=== PATIENT | male | born 1955 | race Caucasian/White ===

== ENCOUNTER 2016-08-09 12:20 | Observation (INO) | payer OTHER ==
[~2016-08-09] VITALS: Ht 177.8 cm; Wt 79.1 kg
[2016-08-09] MEDS ORDERED: CARB400T4 PO ×2 (12:33→15:36)
[2016-08-09] MEDS ORDERED: LISI-538 PO (12:33)
[2016-08-09] MEDS ORDERED: VITA100037 PO (12:33)
[2016-08-09] MEDS ORDERED: NS 1,000 ML IV ONE (13:30)
[2016-08-09 14:14] LABS: BASO % 0.4 % (0.0-1.0); EOS # 0.1 K/mm3 (0.0-0.50); EOS % 1.8 % (0.0-3.0); LARGE UNSTAINED CELL # 0.1 K/mm3 (0.0-0.4); LARGE UNSTAINED CELL % 2.4 % (0.0-4.0); LYMPH # 0.8 K/mm3 (1.5-4.5); LYMPH % 11.6 % (24.0-44.0); MEAN CORPUSCULAR HEMOGLOBIN 31.5 pg (27.0-33.0); MEAN CORPUSCULAR HGB CONC 32.4 g/dl (32.0-36.5); MEAN CORPUSCULAR VOLUME 97.2 fl (80.0-96.0); MONO # 0.3 K/mm3 (0.0-0.8); NEUTROPHILS # 4.4 K/mm3 (1.8-7.7); NEUTROPHILS % 77.8 % (36.0-66.0); PLATELET COUNT, AUTOMATED 203 k/mm3 (150-450); RED CELL DISTRIBUTION WIDTH 14.3 % (11.5-14.5); WHITE BLOOD COUNT 5.6 K/mm3 (4.0-10.0)
[2016-08-09 14:18] LABS: INR 0.91
[2016-08-09 14:20] LABS: ANION GAP 11 MEQ/L (8-16); BLOOD UREA NITROGEN 10 MG/DL (7-18); CALCIUM LEVEL 8.8 MG/DL (8.8-10.2); CARBON DIOXIDE LEVEL 24 MEQ/L (21-32); CHLORIDE LEVEL 99 MEQ/L (98-107); CREATININE FOR GFR 0.99 MG/DL (0.70-1.30); GLOMERULAR FILTRATION RATE > 60.0 (>49); GLUCOSE, FASTING 99 MG/DL (80-110); MAGNESIUM LEVEL 2.1 MG/DL (1.8-2.4); POTASSIUM SERUM 4.4 MEQ/L (3.5-5.1); SODIUM LEVEL 134 MEQ/L (136-145)
[2016-08-09] MEDS ORDERED: NS 2,250 ML in APPROPRIATE DILUENT 1 EA IV ONE (14:45)
[2016-08-09 14:47] LABS: METHADONE URINE NEGATIVE (NEGATIVE)
[2016-08-09 15:12] VITALS: O2SAT 98
[2016-08-09 15:13] LABS: ABG BASE EXCESS -5.4 (-2.0-2.0); ABG HCO3 18.9 MEQ/L (22.0-26.0); ABG PARTIAL PRESSURE CO2 33.1 mmHg (35.0-45.0); ABG PARTIAL PRESSURE O2 88.1 mmHg (75.0-100.0); ABG TOTAL CO2 19.9 MEQ/L (23.0-31.0); ABG pH (ARTERIAL) 7.374 UNITS (7.350-7.450)
[2016-08-09] MEDS ORDERED: ISOVUE-370 76% 100ML VIAL (Q9967) As Ordered ONE (15:22)
[2016-08-09] MEDS ORDERED: LISI40TAB PO (15:36)
[2016-08-09 16:29] LABS: ALBUMIN 3.7 GM/DL (3.2-5.2); ALBUMIN/GLOBULIN RATIO 1.09 (1.00-1.93); ALKALINE PHOSPHATASE 97 U/L (45-117); ALT/SGPT 23 U/L (12-78); AMYLASE 64 U/L (25-115); AST/SGOT 25 U/L (15-37); BILIRUBIN,DIRECT < 0.1 MG/DL (0.0-0.2); BILIRUBIN,TOTAL 0.3 MG/DL (0.2-1.0); TOTAL PROTEIN 7.1 GM/DL (6.4-8.2)
[2016-08-09] MEDS: NS 1,000 ML IV SCH ×2 (17:19→23:11)
[2016-08-09] MEDS ORDERED: FOLIC ACID 1 MG in NS 50 ML IV SCH (19:30)
[2016-08-09 20:35] LABS: CARBAMAZEPINE (TEGRETOL) LEVEL 7.7 UG/ML (4.0-10.0)
[2016-08-09 20:40] VITALS: BP 167/82
--- NOTE | 2016-08-09 20:44 | HPE ---
DATE OF ADMISSION: 08/09/2016 PRIMARY CARE PROVIDER: The patient sees somebody in the residents' clinic. REASON FOR ADMISSION: Syncopal episode HISTORY OF PRESENT ILLNESS: The patient is a 61-year-old male with past medical history significant for multiple syncopal episodes, seizures, high blood pressure, who presented to the emergency room with his and granddaughter and her after he had a syncopal episode in jain today. The patient was sitting down next his when he passed out. Per the , he had lost consciousness for about 8-10 minutes. No seizure-like activity was noted. He did not hit his head or fall off the pew. He was then brought into the emergency room. The patient has history of these syncopal episodes for the past two years. He had about 6-7 episodes. He was referred to Dr. Rea who put in a loop recorder. Last appointment with Dr. Rea was about two weeks ago and he had no events on his loop recorder. The patient also has history of seizure disorder. He follows up with Dr. Lucas and he is currently on carbamazepine. At this time, the patient denies any chest pain, shortness of breath, nausea, vomiting or diarrhea. Denies any decreased oral intake. Denies any dizziness or headaches. Denies any blurry vision. Denies any focal weaknesses or deficits. The patient was found to be hypotensive on admission with a systolic blood pressure as low as 81/45. He was started on intravenous (IV) fluids. He received one liter bolus, and then his IV fluids were continued to run at rate of 100 mL an hour. His blood pressure now in the 130s. Hospitalist was called for the admission. REVIEW OF SYSTEMS: 12-point review of systems obtained, all of which was negative except for those mentioned above. PAST MEDICAL HISTORY: Significant for history of syncopal episodes for the past two years, seizure disorder, hypertension. PAST SURGICAL HISTORY: Significant for bilateral knee surgery. ALLERGIES TO MEDICATIONS: None. SOCIAL HISTORY: The patient admits to chewing tobacco and states he drinks about two beers every few days. Denies any alcohol use. Lives at home with his . FAMILY HISTORY: Noncontributory. HOME MEDICATIONS: - Tegretol 400 mg by mouth twice a day - lisinopril 40 mg by mouth daily - vitamin D 1000 units by mouth at bedtime. PHYSICAL FINDINGS: VITAL SIGNS: Initial blood pressure on admission was 94/53. repeat is 85/48, temperature 98.6, heart rate 74, respiratory rate 18, pulse oximetry 97% on room air. HEENT: Pupils equal, round, reactive to light and accommodation. NECK: Supple. No jugular venous distention (JVD). LUNGS: Clear to auscultation bilaterally. ABDOMEN: Soft, nontender, nondistended. EXTREMITIES: No clubbing, cyanosis or edema. NEUROLOGIC: Cranial nerves II-XII grossly intact. No focal deficits. CARDIAC: Regular rate and rhythm. LABORATORY FINDINGS: WBC 5.6, hemoglobin 12.4, hematocrit 38.4, platelet count 203. Sodium 134, potassium 4.4, chloride 99, BUN 10, creatinine 0.99. Lactic acid was 3.4. D-dimer was found to be elevated at 30,434. Urinalysis was normal. Tox screen was negative except for alcohol level of 0.194. Blood gas: Normal pH, pCO2 33.1, pO2 88.1, bicarb 18.9. IMAGING: CT angiogram was ordered in the emergency room, showed no pulmonary embolism (PE), but an 8 mm left lower lobe nodule requiring followup. ASSESSMENT AND PLAN: 1. Syncopal episode. We will admit the patient to telemetry. Continue to monitor on telemetry. The patient has a loop recorder. Dr. Rea was contacted from the emergency room. He felt it was less likely due to an arrhythmia and more likely secondary to hypotension. We will continue IV fluids at a rate of 100 mL an hour. Continue orthostatic blood pressures. 2. Elevated D-dimer. CT scan showed no pulmonary embolism (PE). 3. 8 mm at lung nodule seen on CT. The patient will likely need to followup imaging. 4. History of seizure disorder. We will order Tegretol level. Continue the patient's home dose. 5. History of hypertension. Continue lisinopril once patient's systolic blood pressure is within normal limits again. 6. The patient had alcohol level of 0.19. We will put the patient on thiamine, folate, multivitamin to prevent going into withdrawal. 7. Deep venous thrombosis ( DVT) prophylaxis. Sequential compression devices while in bed.
[2016-08-09 20:45] VITALS: BP 170/91
[2016-08-09 20:50] VITALS: BP 190/98
[2016-08-09] MEDS ORDERED: OXAZEPAM 10 MG CAP PO PRN (21:45)
[2016-08-09] MEDS: FOLIC ACID 1 MG TAB PO SCH (22:05)
[2016-08-09] MEDS: VITAMIN D 1,000 INTERNATIONAL UNITS TABLET PO SCH (22:05)
[2016-08-09] MEDS: THIAMINE 100 MG TAB PO SCH (22:05)
[2016-08-09] MEDS: ENOXAPARIN 30 MG/0.3 ML SYR (J1650) SC SCH (22:05)
[2016-08-09] MEDS: MULTIVITAMINS/MINERALS THERAP 1 TAB PO SCH (22:05)
[2016-08-09] MEDS: carBAMazepine XR 200 MG TAB PO SCH (23:12)
[2016-08-09] MEDS: OXAZEPAM 10 MG CAP PO SCH (23:12)
[2016-08-10] VITALS (8 sets, daily range): BP systolic 123–168; BP diastolic 72–97
[2016-08-10 04:45] LABS: MEAN CORPUSCULAR HEMOGLOBIN 31.4 pg (27.0-33.0); MEAN CORPUSCULAR HGB CONC 32.5 g/dl (32.0-36.5); MEAN CORPUSCULAR VOLUME 96.7 fl (80.0-96.0); RED CELL DISTRIBUTION WIDTH 14.2 % (11.5-14.5); WHITE BLOOD COUNT 6.1 K/mm3 (4.0-10.0)
[2016-08-10 05:14] LABS: ANION GAP 8 MEQ/L (8-16); BLOOD UREA NITROGEN 9 MG/DL (7-18); CALCIUM LEVEL 8.3 MG/DL (8.8-10.2); CARBON DIOXIDE LEVEL 25 MEQ/L (21-32); CHLORIDE LEVEL 104 MEQ/L (98-107); CREATININE FOR GFR 0.69 MG/DL (0.70-1.30); GLOMERULAR FILTRATION RATE > 60.0 (>49); GLUCOSE, FASTING 77 MG/DL (80-110); SODIUM LEVEL 137 MEQ/L (136-145)
--- NOTE | 2016-08-10 06:00 | REP ---
REASON: Syncope. COMPARISON: Multiple, the latest 08/15/2014. There is no significant change from the prior exam. There is no acute intracranial hemorrhagic or nonhemorrhagic event. There is no shift of the midline structures. There is no change in the deep white matter. There is no change in the appearance of the posterior fossa. There is no skull fracture. There is no change in the appearance of the paranasal sinuses or mastoid air cells. IMPRESSION: No significant change. No evidence of acute disease. Signed by Edwin Burciaga DO 08/10/2016 03:39 P
--- NOTE | 2016-08-10 06:03 | REP ---
Syncope. COMPARISON: 07/16/2014. The technique utilized in obtaining the radiograph has magnified the cardiac silhouette and accentuated the interstitial markings. FINDINGS: The superior mediastinal structures are midline. The cardiac silhouette is unremarkable in size, shape, and position. The diaphragmatic surfaces of the lungs are regular, and the costophrenic angles are clear. The pulmonary butler are clear. The imaged osseous structures are intact. IMPRESSION: There is no acute cardiopulmonary disease. No significant change. Signed by Edwin Burciaga DO 08/10/2016 03:39 P
[2016-08-10] MEDS: OXAZEPAM 10 MG CAP PO SCH ×3 (06:24→17:02)
--- NOTE | 2016-08-10 06:54 | REP ---
Syncope and chest pain. COMPARISON: None. CONTRAST: 100 mL Isovue 370. There is good visualization of the pulmonary arterial vasculature with some add mixture of blood and contrast in the smaller arterials but no evidence of an abnormal focal filling defect that would be considered consistent with a pulmonary embolus. The thoracic aorta is within normal limits. There are no pleural or pericardial effusions. The imaged upper abdomen and imaged osseous structures are within normal limits. There are multiple old rib fractures. There is no mediastinal or hilar mass or adenopathy. Evaluation of the lung butler show evidence of mild biapical pleuroparenchymal scarring. In the right upper lobe, there is a pleural based 4 mm sized nodule. In the left lower lobe, there is a 7 mm size nodule. Also in the left lower lobe there is a larger 8 mm sized slightly irregular nodule. There are a few asymmetric bibasilar opacities suggestive of subsegmental atelectatic and/or mild fibrotic changes. IMPRESSION: 1. There is no evidence of a pulmonary embolus. 2. Multiple pulmonary nodules as described above. According to the revised Fleischner Society criteria, followup recommendation will be based on the largest nodule which is 8 mm in the left lower lobe. This represents a category 4a lesion and followup is recommended in 3 months with consideration made for PET/CT at this time. Pulmonary consultation is recommended. 3. Other findings as described above. Signed by Edwin Burciaga DO 08/10/2016 03:44 P
[2016-08-10] MEDS: LISINOPRIL 40 MG TAB PO SCH (08:18)
[2016-08-10] MEDS: carBAMazepine XR 200 MG TAB PO SCH ×2 (08:18→20:51)
[2016-08-10] MEDS: NS 1,000 ML IV SCH ×2 (13:10→20:51)
--- NOTE | 2016-08-10 15:08 | IPN ---
DATE: 08/10/2016 SUBJECTIVE: This is a 61-year-old male who is seen and examined in intensive care unit (ICU) room. The patient was admitted yesterday due to a syncopal episode while at [employer] earlier in the morning. He admits that he was drinking excessive amount of alcohol up until 1:00 a.m. the morning of admission. Later in temple that morning, he was reportedly sitting next to his when he passed out in temple. There was loss of consciousness for about 8-10 minutes. No seizure-like activity was witnessed. Of note, he was recently seen by Dr. eRa two weeks ago for evaluation of his loop recorder events and no concerning arrhythmia was detected. This morning, he feels well. He denies any chest pain, shortness of breath, nausea, vomiting, diarrhea, constipation, fevers, chills, night sweats, headache , lightheadedness, dizziness, further episodes of near syncope or syncopal episodes. He has not gotten out of bed without assistance. Appetite has been good. OBJECTIVE: VITAL SIGNS: Blood pressure 165/97, heart rate 68, temperature 98.1, respiratory rate 16, pulse oximetry 97% on room air. GENERAL: The patient is sitting in bed, comfortable, in no acute distress. He is awake, alert and oriented times three, pleasant and cooperative. HENT: Normocephalic, atraumatic. Moist oral mucosa. Eyes: Extraocular movement intact. Pupils are equal and reactive to light. NECK: Supple. Trachea midline. No jugular venous distention (JVD). CHEST: Symmetric chest rise. No accessory muscle use. Breath sounds were clear to auscultation bilaterally. HEART: Regular rate and rhythm with normal S1, S2. ABDOMEN: Soft, nontender, nondistended. Bowel sounds present. No guarding. No rebound. No peritoneal sign. EXTREMITIES: No pedal edema. Pedal pulses present bilaterally. NEUROLOGIC: Cranial nerves II-XII grossly intact. No focal deficits appreciated. Strength 5/5 in all extremities. He does have asterixis. SKIN: No obvious rashes or lesions. PSYCHIATRIC: Normal affect, cooperative. LABORATORY DATA: WBC 6.1, hemoglobin 11.6, hematocrit 35.7, and platelets of 176. Sodium 137, potassium 4, chloride 104, carbon dioxide 25, BUN is 9, creatinine 0.69, glucose 77, lactic acid is normal, calcium 8.3, magnesium 2. Alcohol level on admission was 0.194. Urinalysis is negative. Urinalysis on admission clear. Carbamazepine level is normal. Influenza screen negative. Blood cultures pending. CT head showed no acute change. No evidence of acute disease. Chest x-ray without cardiopulmonary disease. CT angiogram reports no PE, multiple pulmonary nodules, largest on the left lower lobe measured 8 mm in size with irregular nodule. IMPRESSION AND PLAN: Mr. Barton is a 61-year-old male with a past medical history of syncope, seizure disorder, hypertension, who was brought in by family for a syncopal event while at temple. 1. Syncope. Etiology unclear. Possible causes include orthostatic hypotension as he was hypotensive on admission versus intoxication versus neurologic versus other. His carbamazepine level was therapeutic on admission. His outpatient appointment manager was contacted and it was believed that his symptom was not likely secondary to underlying arrhythmia as he does have an loop recorder inserted and no arrhythmia was documented. We have ordered an EEG for further assistance. We will recheck orthostatic vital signs. 2. Hypertension. The patient normally takes lisinopril outside. He actually presented on admission hypotensive with a systolic blood pressure anywhere in the 80s. Since admission, his blood pressure has been ranging more on the high end. 3. Elevated D-dimer. Had CT angiogram that was unrevealing for pulmonary embolism (PE). 4. Abnormal CT angiogram. A CT angiogram to evaluate for PE incidentally found to have nodules. Recommend that this be followed up in three months per recommendation from radiologist report. 5. Alcohol intoxication. The patient is on Serax as needed and scheduled. Have spent at length discussing the importance of alcohol cessation and detoxification. 6. History of seizure disorder. Continue Tegretol 400 mg by mouth twice a day. 7. Deep vein thrombosis (DVT) prophylaxis. Sequential compression device (SCD), thromboembolic-deterrent stockings (TEDS), and Lovenox. My preceptor for this patient encounter was Dr. Martina Anders. The preceptor was physically present in the building during the encounter and was fully available as needed. All aspects of the patient interview, examination, medical decision making process, and medical care plan development were reviewed and approved by the preceptor. The preceptor is aware and concurs with the plan as stated in the body of this note and will attest to such by his/her co-signature. GLENN
[2016-08-10] MEDS: THIAMINE 100 MG TAB PO SCH (20:51)
[2016-08-10] MEDS: FOLIC ACID 1 MG TAB PO SCH (20:51)
[2016-08-10] MEDS: MULTIVITAMINS/MINERALS THERAP 1 TAB PO SCH (20:51)
[2016-08-10] MEDS: VITAMIN D 1,000 INTERNATIONAL UNITS TABLET PO SCH (20:51)
[2016-08-10] MEDS: ENOXAPARIN 30 MG/0.3 ML SYR (J1650) SC SCH (20:51)
[2016-08-11] MEDS: OXAZEPAM 10 MG CAP PO SCH ×4 (00:21→17:12)
[2016-08-11 02:00] VITALS: BP 155/89
--- NOTE | 2016-08-11 04:40 | ECGEPIP ---
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
[2016-08-11 06:00] VITALS: BP 154/89
[2016-08-11 06:51] LABS: MEAN CORPUSCULAR HEMOGLOBIN 31.3 pg (27.0-33.0); MEAN CORPUSCULAR HGB CONC 32.1 g/dl (32.0-36.5); MEAN CORPUSCULAR VOLUME 97.6 fl (80.0-96.0); RED CELL DISTRIBUTION WIDTH 14.1 % (11.5-14.5); WHITE BLOOD COUNT 5.1 K/mm3 (4.0-10.0)
[2016-08-11 07:10] LABS: ANION GAP 4 MEQ/L (8-16); BLOOD UREA NITROGEN 6 MG/DL (7-18); CALCIUM LEVEL 8.5 MG/DL (8.8-10.2); CARBON DIOXIDE LEVEL 29 MEQ/L (21-32); CHLORIDE LEVEL 105 MEQ/L (98-107); CREATININE FOR GFR 0.62 MG/DL (0.70-1.30); GLOMERULAR FILTRATION RATE > 60.0 (>49); GLUCOSE, FASTING 86 MG/DL (80-110); MAGNESIUM LEVEL 1.7 MG/DL (1.8-2.4); POTASSIUM SERUM 3.7 MEQ/L (3.5-5.1); SODIUM LEVEL 138 MEQ/L (136-145)
[2016-08-11] MEDS: NS 1,000 ML IV SCH (08:00)
[2016-08-11] MEDS: LISINOPRIL 40 MG TAB PO SCH (08:42)
[2016-08-11] MEDS: carBAMazepine XR 200 MG TAB PO SCH ×2 (08:42→20:09)
[2016-08-11] MEDS: MAG SULF 1GM/100ML (MAG RUN) 1 GM in APPROPRIATE DILUENT 1 EA IV SCH ×2 (08:42→10:00)
[2016-08-11 10:00] VITALS: BP 147/83
[2016-08-11 14:00] VITALS: BP_SYST 170; BP_SYST 180; BP_DIAS 100
--- NOTE | 2016-08-11 15:02 | IPN ---
DATE: 08/11/2016 SUBJECTIVE: This is a 61-year-old male who was seen and examined at bedside. Yesterday, he was transferred to the medical/surgical floor. Overnight, no reported acute events. This morning, he feels well. Denies any chest pain, shortness of breath, palpitations, fever, chills, nausea, vomiting, or diarrhea. He states that he ambulated to the bathroom with assist without difficulty. Has good appetite. OBJECTIVE: VITAL SIGNS: Blood pressure 124/78, heart rate 77, temperature 98.9, respiratory rate 20, pulse oximetry 98% on room air. Intake and output the last 24 hours is 4220 and 2325, net positive of 1895. GENERAL: The patient is sitting in bed, eating breakfast, comfortable, in no acute distress. He is alert, awake and oriented times three, pleasant and cooperative. HEENT: Normocephalic, atraumatic. Moist oral mucosa. Eyes: Extraocular movement intact. Pupils are equal and reactive to light. NECK: Supple. Trachea midline. No jugular venous distention (JVD). CHEST: Symmetric chest rise. No accessory muscle use. Breath sounds were clear to auscultation bilaterally. HEART: Regular rate and rhythm with normal S1, S2. ABDOMEN: Soft, nontender, nondistended. Bowel sounds present. No guarding. No rebound. EXTREMITIES: No pedal edema. Pedal pulses present bilaterally. NEUROLOGIC: Cranial nerves II-XII grossly intact. No focal deficits appreciated. Did not assess gait. Strength 5/5 in all extremities. He does have mild asterixis which reportedly is chronic for the patient. SKIN: No obvious rashes or lesions. PSYCHIATRIC: Pleasant, cooperative, normal affect. LABORATORY DATA: WBC 5.1, hemoglobin 10.9, hematocrit 34, and platelets of 172. Sodium 138, potassium 3.7, chloride 105, carbon dioxide 29, BUN is 6, creatinine 0.62, calcium 8.5, glucose 86, magnesium 1.7. Blood cultures, one out of two sets positive for Gram-negative rods. IMPRESSION AND PLAN: Mr. Barton is a 61-year-old male with a past medical history of syncope, seizure disorder, hypertension, who presented with a syncopal episode while at [employer]. 1. Syncope. EEG was ordered yesterday and report is pending at this time. Possible cause for his syncope is likely secondary to alcohol intoxication versus orthostatic hypotension. Yesterday, he had positive orthostatic. We have requested orthostatic every eight hours to be performed manually. Continue to monitor for now. We have asked physical therapy for assistance regarding his ambulation. 2. Hypertension. Blood pressure is reasonable. He presented initially hypotensive. Continue lisinopril 40 mg by mouth daily. 3. Elevated D-dimer. CT angiogram was negative for pulmonary embolism (PE). 4. Abnormal CT angiogram. He will require three-month followup CT regarding pulmonary nodule with largest 8 mm. 5. Alcohol intoxication. He is on Serax as needed and scheduled. . 6. History of seizure disorder. Continue Tegretol twice a day. 7. Gram positive rods bacteremia. His culture shows positive only one out of two sets. Despite not being on antibiotic, he remains asymptomatic. Suspect that this is contaminant. We have repeated two sets of blood cultures. We will followup with results. 8. Hypomagnesemia. Magnesium has been repleted. 9. Deep vein thrombosis (DVT) prophylaxis. Sequential compression device (SCD), thromboembolic-deterrent stockings (TEDS), and Lovenox. My preceptor for this patient encounter was Dr. Evan Valerio. The preceptor was physically present in the building during the encounter and was fully available as needed. All aspects of the patient interview, examination, medical decision making process, and medical care plan development were reviewed and approved by the preceptor. The preceptor is aware and concurs with the plan as stated in the body of this note and will attest to such by his/her co-signature. GLENN
[2016-08-11] MEDS: amLODIPine 5 MG TAB PO SCH (15:10)
[2016-08-11 18:00] VITALS: BP 150/96
[2016-08-11] MEDS: ENOXAPARIN 30 MG/0.3 ML SYR (J1650) SC SCH (20:08)
[2016-08-11] MEDS: FOLIC ACID 1 MG TAB PO SCH (20:09)
[2016-08-11] MEDS: THIAMINE 100 MG TAB PO SCH (20:09)
[2016-08-11] MEDS: VITAMIN D 1,000 INTERNATIONAL UNITS TABLET PO SCH (20:09)
[2016-08-11] MEDS: MULTIVITAMINS/MINERALS THERAP 1 TAB PO SCH (20:09)
[2016-08-11 22:00] VITALS: BP 162/90
[2016-08-12] MEDS: OXAZEPAM 10 MG CAP PO SCH ×2 (00:24→05:05)
[2016-08-12 02:00] VITALS: BP_SYST 154; BP_SYST 160; BP_SYST 168; BP_DIAS 88; BP_DIAS 90
[2016-08-12 06:00] VITALS: BP 158/90
[2016-08-12 06:59] LABS: MEAN CORPUSCULAR HEMOGLOBIN 31.2 pg (27.0-33.0); MEAN CORPUSCULAR HGB CONC 32.3 g/dl (32.0-36.5); MEAN CORPUSCULAR VOLUME 96.8 fl (80.0-96.0); RED CELL DISTRIBUTION WIDTH 13.9 % (11.5-14.5); WHITE BLOOD COUNT 5.6 K/mm3 (4.0-10.0)
--- NOTE | 2016-08-12 07:03 | EEG ---
DATE OF PROCEDURE: 08/11/2016 REFERRING PHYSICIAN: Dr. Martina Anders DIAGNOSIS: Syncope. EEG NUMBER: [id number] HISTORY: The patient is a 61-year-old man with history of seizures and passing out spells. This EEG was done to rule out epileptic potential. He had a recurrent passing out spell at spiritism. He is currently taking Tegretol, thiamine, folic acid, oxazepam, lisinopril. TECHNICAL DESCRIPTION: This digital EEG was recorded by 21 scalp, ear and two EKG electrodes and was reviewed in bipolar and referential montages following reformatting in 10-20 international electrode placement system. INTERPRETATION: The patient was noted to be in awake and drowsy states during this EEG. Resting awake background rhythm consisted of 9-10 Hertz alpha activity measuring 15-40 microvolts in amplitude which was symmetric and reactive to eye opening. Attenuation of posterior dominant rhythm was seen during transition into drowsiness. Hyperventilation and photic stimulation remained unremarkable. Excessive beta activity was seen in frontal head regions likely due to medication effect. No focal, lateralizing or epileptiform abnormalities were seen. No clinical or electrographic seizures were recorded. CONCLUSION: This EEG in awake and drowsy states is within normal limits.
[2016-08-12 07:16] LABS: ANION GAP 7 MEQ/L (8-16); BLOOD UREA NITROGEN 5 MG/DL (7-18); CALCIUM LEVEL 8.5 MG/DL (8.8-10.2); CARBON DIOXIDE LEVEL 29 MEQ/L (21-32); CHLORIDE LEVEL 103 MEQ/L (98-107); CREATININE FOR GFR 0.69 MG/DL (0.70-1.30); GLOMERULAR FILTRATION RATE > 60.0 (>49); GLUCOSE, FASTING 91 MG/DL (80-110); MAGNESIUM LEVEL 1.9 MG/DL (1.8-2.4); POTASSIUM SERUM 3.8 MEQ/L (3.5-5.1); SODIUM LEVEL 139 MEQ/L (136-145)
[2016-08-12 08:45] VITALS: BP 154/82
[2016-08-12] MEDS: amLODIPine 5 MG TAB PO SCH (08:45)
[2016-08-12] MEDS: carBAMazepine XR 200 MG TAB PO SCH (08:45)
[2016-08-12] MEDS: LISINOPRIL 40 MG TAB PO SCH (08:45)
[2016-08-12] MEDS ORDERED: FOLI1TAB2 PO (09:53)
[2016-08-12] MEDS ORDERED: VITMTA PO (09:53)
[2016-08-12] MEDS ORDERED: AMLO5TAB2 PO (11:18)
--- NOTE | 2016-08-12 17:54 | DSES ---
DATE OF ADMISSION: 08/09/2016 DATE OF DISCHARGE: 08/12/2016 PRIMARY CARE PROVIDER: Dr. Purvis, resident clinic DISCHARGE DIAGNOSES: 1. Syncope. 2. Orthostatic hypotension. 3. Elevated D-dimer. 4. Abnormal CT chest. 5. Alcohol intoxication. 6. Gram-positive lynnette bacteremia, one out of four. 7. Hypomagnesemia. 8. Anemia. 9. Hypertension. 10. Dehydration. SECONDARY ADMITTING DIAGNOSES: 1. History of seizure disorder. 2. Alcohol abuse. 3. Tobacco abuse. DIAGNOSTIC IMAGIN. CT head showed no acute disease. 2. Chest x-ray showed no acute cardiopulmonary disease. 3. CT angiogram showed no pulmonary embolism (PE), multiple pulmonary nodules, largest is 8 mm in the left upper lobe. 4. EEG normal. BRIEF HOSPITAL COURSE: Mr. Barton is a pleasant 61-year-old male with a past medical history as mentioned above who was brought into the hospital by family after found to have an episode of syncope while at religion. The patient reportedly was drinking heavily the night prior to religion and while sitting in religion next to his , he passed out. The episode lasted for approximately 8-10 minutes. No seizure-like activity was witnessed. No trauma or injury to his head. The patient reportedly has a longstanding history of syncope in the past and had a Loop recorder inserted approximately two years ago and his most recent cardiology followup was approximately two weeks prior to admission and no events were recorded from his Loop recorder. He follows closely with Dr. Lucas for his seizure disorder. On admission, he was found to be hypotensive with lowest systolic of 81. Alcohol level was 0.194. He was started on IV hydration. For a complete history and physical, please see dictation on admission. Because of his syncopal event, he was admitted for close monitoring. While in telemetry, no event was recorded. He was started on IV hydration for his hypotension. With IV resuscitation, his blood pressure significantly improved. Close to the time of discharge, he actually required an addition of Norvasc to his regular home medication. 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 Incidentally, he was found to have elevated D-dimer and a CT angiogram was performed which did not show evidence of pulmonary embolism (PE) but did show some pulmonary nodule. At this time, it is recommended that the patient have repeat CT chest in three months for followup on an outpatient basis. For his alcohol abuse, lengthy discussions spent with the patient regarding rehabilitation and cessation of alcohol. The patient is willing to attend alcoholic anonymous (AA). He was placed on Serax protocol for withdrawal. For his anemia, no intervention was performed as he did not have any acute evidence of bleeding. However, we will recommend that he be referred for a colonoscopy if not already completed. PHYSICAL EXAMINATION AT TIME OF DISCHARGE: VITAL SIGNS: Blood pressure 154/82, heart rate 68, temperature 98, respiratory rate 20, pulse oximetry 98% on room air. GENERAL: The patient was sitting in chair, comfortable, in no acute distress. He is alert, awake and oriented times three, pleasant and cooperative. HEENT: Normocephalic, atraumatic. Moist oral mucosa. Edentulous. Eyes: Extraocular movement intact. Pupils are equal and reactive to light. NECK: Supple. Trachea midline. No jugular venous distention (JVD). CHEST: Symmetric chest rise. No accessory muscle use. Breath sounds were clear to auscultation bilaterally. HEART: Regular rate and rhythm with normal S1, S2. ABDOMEN: Soft, nontender, nondistended. Bowel sounds present. No guarding. No rebound. EXTREMITIES: No pedal edema. Pedal pulses present bilaterally. NEUROLOGIC: Cranial nerves II-XII grossly intact. Sensory intact. Mild asterixis which reportedly is baseline for him. No focal deficits appreciated. SKIN: No obvious rashes or lesions. PSYCHIATRIC: Pleasant, cooperative, normal affect. LABORATORY DATA: WBC 5.6, hemoglobin 11.2, hematocrit 34.6, and platelets of 166. Sodium 139, potassium 3.8, chloride 103, carbon dioxide 29, BUN is 5, creatinine 0.69, glucose 91, magnesium 1.9, calcium 9.5. Urine toxicology on admission was negative except for alcohol level as mentioned. DISPOSITION: Home. ACTIVITY: As tolerated. DIET: Two-gram sodium diet. CONDITION: Stable. FOLLOWUP: With Dr. Purvis next week. Recommend primary care provider (PCP) repeat CT chest in three months for reevaluation of his abnormal CT findings during this hospitalization. Recommend referral to gastroenterology for a colonoscopy due to his anemia. DISCHARGE INSTRUCTIONS: The patient was instructed to return to the hospital if he has worsening or recurrent symptoms or anything else concerning to the patient and family. Have advised the patient to stop alcohol and consider alcohol detoxification. TIME SPENT: 40 minutes. My preceptor for this patient encounter was Dr. Evan Valerio. The preceptor was physically present in the building during the encounter and was fully available as needed. All aspects of the patient interview, examination, medical decision making process, and medical care plan development were reviewed and approved by the preceptor. The preceptor is aware and concurs with the plan as stated in the body of this note and will attest to such by his/her co-signature. cc: [facility] GLENN
== END 2016-08-12 11:05 | disposition home or self-care (01) ==
LOC: EDBD 12:20 → M ED 13:07 → M ED INP 15:47 → M ICU 20:34 → M MSPAV 08-10 15:19
PROVIDERS: ADMIT Internal Medicine; ATTEND Internal Medicine
DX: R55 Syncope and collapse (principal); I10 Essential (primary) hypertension; R79.1 Abnormal coagulation profile; R91.8 Other nonspecific abnormal finding of lung field; F10.10 Alcohol abuse, uncomplicated; R78.81 Bacteremia; E83.42 Hypomagnesemia; D64.9 Anemia, unspecified; I95.9 Hypotension, unspecified; E86.0 Dehydration; R56.9 Unspecified convulsions; F17.210 Nicotine dependence, cigarettes, uncomplicated; Z79.899 Other long term (current) drug therapy
CPT/HCPCS: 36415; 36600; 70450; 71010; 71275; 80048; 80076; 80156; 80306; 81001; 82150; 82550; 82553; 82803; 83605; 83735; 84443; 85025; 85027; 85379; 85610; 85730; 86140; 86850; 86900; 86901; 87040; 87077; 87086; 87804; 93005; 93041; 96360; 96361; 96372; 97161; 99285; G0480; J1650; J3475; Q9967

== ENCOUNTER → 2016-09-28 | Outpatient (CLI) | payer OTHER ==
[~2016-09-28] MED LIST: AMLO5TAB2 PO; ASPI1TAB PO; CARB400T4 PO; FOLI1TAB2 PO; LISI-538 PO; LISI40TAB PO; MYSO50TA5 PO; VITA100037 PO; VITA500T3 PO; VITA50TA PO; VITMTA PO
[2016-09-28 14:49] LABS: PERCENT SATURATION 49.7 % (19.7-37.4)
[2016-09-28 15:32] LABS: MEAN CORPUSCULAR HEMOGLOBIN 32.6 pg (27.0-33.0); MEAN CORPUSCULAR HGB CONC 33.3 g/dl (32.0-36.5); MEAN CORPUSCULAR VOLUME 97.9 fl (80.0-96.0); RED CELL DISTRIBUTION WIDTH 13.2 % (11.5-14.5); WHITE BLOOD COUNT 7.4 K/mm3 (4.0-10.0)
== END ==
LOC: M LAB 13:41
PROVIDERS: ATTEND Physician Assistant Medical
DX: D64.9 Anemia, unspecified (principal)

== ENCOUNTER → 2016-10-02 | Outpatient (CLI) | payer OTHER ==
[~2016-10-02] VITALS: Ht 180.3 cm; Wt 82.1 kg
[~2016-10-02] MED LIST changes: +LIDOCAINE 2% INJ 100 MG/5 ML SDV (FOR ANES.) As Ordered ONE; +NS 1,000 ML IV ONE; +PROPOFOL 200 MG/20 ML VIAL As Ordered ONE; +fentaNYL 100 MCG/2 ML INJECTION (J3010) As Ordered ONE
--- NOTE | 2016-10-02 10:30 | ROOR ---
Patient Name: Jermaine Barton Procedure Date: 10/02/2016 10:17 AM Date of : 1955 Age: 61 Room: [facility] Gender: Male Note Status: Finalized Procedure: Upper GI endoscopy Indications: Unspecified anemia Providers: Stu YEE MD Referring MD: KENYON CASTELLON Sara [facility] KENYON Gar Requesting Provider: Medicines: Monitored Anesthesia Care Complications: No immediate complications. Procedure: Pre-Anesthesia Assessment: - The heart rate, respiratory rate, oxygen saturations, blood pressure, adequacy of pulmonary ventilation, and response to care were monitored throughout the procedure. The Endoscope was introduced through the mouth, and advanced to the second part of duodenum. The upper GI endoscopy was accomplished without difficulty. Findings: The esophagus was normal. The stomach was normal. The examined duodenum was normal. Impression: - Normal esophagus. - Normal stomach. - Normal examined duodenum. - No specimens collected. Recommendation: - Observe patient's clinical course. Stu Yee MD Stu YEE MD 10/02/2016 10:30:39 AM This report has been signed electronically. Number of Addenda: 0 Note Initiated On: 10/02/2016 10:17 AM Estimated Blood Loss: Estimated blood loss: none.
--- NOTE | 2016-10-02 10:42 | ROOR ---
Patient Name: Jermaine Barton Procedure Date: 10/02/2016 10:19 AM Date of : 1955 Age: 61 Room: [facility] Gender: Male Note Status: Finalized Procedure: Colonoscopy Indications: Screening for colorectal malignant neoplasm Providers: Stu YEE MD Referring MD: KENYON CASTELLON [facility] Requesting Provider: Medicines: Monitored Anesthesia Care Complications: No immediate complications. Procedure: Pre-Anesthesia Assessment: - The heart rate, respiratory rate, oxygen saturations, blood pressure, adequacy of pulmonary ventilation, and response to care were monitored throughout the procedure. The Colonoscope was introduced through the anus and advanced to the cecum, identified by appendiceal orifice and ileocecal valve. The colonoscopy was performed without difficulty. The patient tolerated the procedure well. The quality of the bowel preparation was adequate. Findings: The perianal and digital rectal examinations were normal. Small Internal Hemorrhoids. The entire examined colon appeared normal on direct and retroflexion views. Impression: - Small Internal Hemorrhoids. - The entire colon is normal on direct and retroflexion views. - No specimens collected. Recommendation: - Repeat colonoscopy in 10 years for screening purposes. Stu Yee MD Stu YEE MD 10/02/2016 10:41:30 AM This report has been signed electronically. Number of Addenda: 0 Note Initiated On: 10/02/2016 10:19 AM Estimated Blood Loss: Estimated blood loss: none.
[2016-10-02 11:07] VITALS: BP 144/80
== END ==
LOC: M OPP 09:04
PROVIDERS: ATTEND Internal Medicine Gastroenterology
DX: Z12.11 Encounter for screening for malignant neoplasm of colon (principal); D64.9 Anemia, unspecified; K64.8 Other hemorrhoids; G40.909 Epilepsy, unspecified, not intractable, without status epilepticus; I10 Essential (primary) hypertension; I49.9 Cardiac arrhythmia, unspecified; F17.220 Nicotine dependence, chewing tobacco, uncomplicated; E78.2 Mixed hyperlipidemia; Z79.82 Long term (current) use of aspirin; Z79.899 Other long term (current) drug therapy

== ENCOUNTER → 2016-12-22 | Outpatient (CLI) | payer OTHER, SELFPAY ==
[~2016-12-22] MED LIST changes: +CARB20TA PO; -FOLI1TAB2 PO; +FOLI1TAB4 PO; -LIDOCAINE 2% INJ 100 MG/5 ML SDV (FOR ANES.) As Ordered ONE; -NS 1,000 ML IV ONE; -PROPOFOL 200 MG/20 ML VIAL As Ordered ONE; -VITA100037 PO; +VITA100067 PO; -fentaNYL 100 MCG/2 ML INJECTION (J3010) As Ordered ONE
[2016-12-24 00:06] LABS: PHENOBARBITAL (PRIMIDONE) 4 ug/mL (15-40)
== END ==
LOC: M LAB 10:33
PROVIDERS: ATTEND Physician Assistant Medical
DX: R56.9 Unspecified convulsions (principal)

== ENCOUNTER 2017-06-24 13:14 | Emergency (ER) | payer SELFPAY ==
[2017-06-24] MEDS ORDERED: HEPATITIS B IMMUNE GLOBULIN 5ML INJ (J1571) IM (17:15)
[2017-06-24] MEDS ORDERED: [UNRECOGNIZED DRUG - OTHER] IM (17:15)
[2017-06-24] MEDS ORDERED: EXPOSURE KIT-ADULT 7 DAY SUPPLY PO (17:15)
== END 2017-06-24 19:54 | disposition home or self-care (01) ==
LOC: M ED 13:14
DX: S62.301A Unspecified fracture of second metacarpal bone, left hand, initial encounter for closed fracture (principal); S62.303A Unspecified fracture of third metacarpal bone, left hand, initial encounter for closed fracture; W19.XXXA Unspecified fall, initial encounter; Y92.410 Unspecified street and highway as the place of occurrence of the external cause; Y93.9 Activity, unspecified; G40.909 Epilepsy, unspecified, not intractable, without status epilepticus; M85.842 Other specified disorders of bone density and structure, left hand; Z79.82 Long term (current) use of aspirin; Z79.899 Other long term (current) drug therapy
CPT/HCPCS: 73130

== ENCOUNTER → 2017-08-10 | Outpatient (CLI) | payer SELFPAY ==
[2017-08-10 11:19] LABS: INR 0.86; PROTHROMBIN TIME 11.7 SECONDS (12.4-14.5)
[2017-08-10 11:20] LABS: PARTIAL THROMBOPLASTIN TIME 26.3 SECONDS (26.8-37.9)
[2017-08-10 11:21] LABS: ALBUMIN 3.7 GM/DL (3.2-5.2); ALKALINE PHOSPHATASE 140 U/L (45-117); ALT/SGPT 20 U/L (12-78); ANION GAP 11 MEQ/L (8-16); AST/SGOT 33 U/L (7-37); BILIRUBIN,TOTAL 0.3 MG/DL (0.2-1.0); BLOOD UREA NITROGEN 5 MG/DL (7-18); CALCIUM LEVEL 8.9 MG/DL (8.8-10.2); CARBON DIOXIDE LEVEL 25 MEQ/L (21-32); CHLORIDE LEVEL 100 MEQ/L (98-107); CREATININE FOR GFR 0.63 MG/DL (0.70-1.30); GLOMERULAR FILTRATION RATE > 60.0 (>49); GLUCOSE, FASTING 91 MG/DL (70-100); SODIUM LEVEL 136 MEQ/L (136-145); TOTAL PROTEIN 7.8 GM/DL (6.4-8.2)
== END ==
LOC: M LAB 10:21
DX: F10.10 Alcohol abuse, uncomplicated (principal)
CPT/HCPCS: 80053

== ENCOUNTER → 2017-08-13 | Outpatient (CLI) | payer SELFPAY | LOC: M RAD 12:57 | DX: R91.1 Solitary pulmonary nodule (principal) ==

== ENCOUNTER 2018-05-04 10:52 | Inpatient (IN) | payer MEDICARE, SELFPAY ==
[~2018-05-04] VITALS: Ht 177.8 cm; Wt 72.3 kg
[~2018-05-04 10:52] MED LIST changes: -AMLO5TAB2 PO; +AMLO5TAB6 PO; +CARB1CAP2 PO; +FOLI1TAB11 PO; -FOLI1TAB4 PO; +IBUP-1022 PO; +LISI40TA PO; -LISI40TAB PO; -VITA50TA PO; +VITA50TA47 PO
[2018-05-04] MEDS ORDERED: VITA-112 PO (11:02)
[2018-05-04] MEDS ORDERED: KEPP10002 PO (11:02)
[2018-05-04 11:18] LABS: BASO # 0.1 10^3/uL (0.0-0.2); BASO % 0.8 % (0.0-1.0); EOS # 0.1 10^3/uL (0.0-0.50); EOS % 0.7 % (0.0-3.0); HEMATOCRIT 44.8 % (42.0-52.0); HEMOGLOBIN 15.4 g/dl (13.5-17.5); LYMPH # 1.5 10^3/uL (1.5-4.5); LYMPH % 12.1 % (24.0-44.0); MEAN CORPUSCULAR HEMOGLOBIN 31.9 pg (27.0-33.0); MEAN CORPUSCULAR HGB CONC 34.4 g/dl (32.0-36.5); MEAN CORPUSCULAR VOLUME 92.8 fl (80.0-96.0); MONO # 0.7 10^3/uL (0.0-0.8); MONO % 5.4 % (0.0-5.0); NEUTROPHILS # 9.8 10^3/uL (1.8-7.7); NEUTROPHILS % 79.9 % (36.0-66.0); PLATELET COUNT, AUTOMATED 402 10^3/uL (150-450); RED BLOOD COUNT 4.83 10^6/uL (4.30-6.10); WHITE BLOOD COUNT 12.3 10^3/uL (4.0-10.0)
[2018-05-04 11:26] LABS: INR 0.95; PROTHROMBIN TIME 12.8 SECONDS (12.1-14.4)
[2018-05-04 11:44] LABS: ALBUMIN 2.8 GM/DL (3.2-5.2); ALT/SGPT 13 U/L (12-78); BILIRUBIN,DIRECT 0.3 MG/DL (0.0-0.2); BILIRUBIN,TOTAL 0.7 MG/DL (0.2-1.0); BLOOD UREA NITROGEN 7 MG/DL (7-18); CALCIUM LEVEL 9.1 MG/DL (8.8-10.2); CARBON DIOXIDE LEVEL 20 MEQ/L (21-32); CHLORIDE LEVEL 94 MEQ/L (98-107); CK-MB VALUE MASS < 1.0 NG/ML (<3.6); CPK CREATINE PHOSPHOKINASE 115 U/L (39-308); CREATININE FOR GFR 1.06 MG/DL (0.70-1.30); GLOMERULAR FILTRATION RATE > 60.0 (>49); GLUCOSE, FASTING 171 MG/DL (70-100); LIPASE 92 U/L (73-393); MB/CK RELATIVE INDEX 0.87 (< OR =4); SODIUM LEVEL 132 MEQ/L (136-145); TROPONIN I < 0.02 NG/ML (< 0.10)
[2018-05-04] MEDS ORDERED: NS 1,000 ML IV SCH (12:45)
--- NOTE | 2018-05-04 12:45 | REP ---
Portable chest x-ray: Two views. History: Weakness. Comparison study: August 09, 2016. Findings: There are multiple old healed rib fractures noted bilaterally. The lungs are symmetrically aerated and clear. A loop recorder is visible to the left of midline. Heart is not enlarged. The aorta is somewhat tortuous. Pleural angles are sharp. Impression: Multiple old healed rib fractures bilaterally. Loop recorder. Otherwise no acute disease. Electronically Signed by Nakul Colon MD 05/04/2018 05:44 P
[2018-05-04] MEDS ORDERED: NS 500 ML IV ONE (13:00)
[2018-05-04] MEDS ORDERED: traMADol 50 MG TAB PO ONE (13:00)
[2018-05-04 13:16] LABS: CARBAMAZEPINE (TEGRETOL) LEVEL < 0.5 UG/ML (4.0-10.0)
[2018-05-04] MEDS ORDERED: HumuLIN R (REGULAR) INSULIN (NovoLIN R) **100U/ML** PER UNIT SC STA (13:34)
--- NOTE | 2018-05-04 13:37 | ECGEPIP ---
Stationary ECG Study [facility] - ED Test Date: 2018-05-04 Pat Name: SHAMIKA WHITEHEAD Department: Room: - Gender: M Director Airport: [place] : 1955 Requested By: Lenore Griffith Order Number: [id number] Reading MD: Luis Mike Measurements Intervals [place] Rate: 113 P: 61 SC: 138 QRS: 13 QRSD: 86 T: 60 QT: 337 QTc: 463 Interpretive Statements SINUS TACHYCARDIA LOW QRS VOLTAGE IN EXTREMITY LEADS BASELINE ARTIFACT AFFECTS INTERPRETATION Electronically Signed On 05-04-2018 13:37:19 EST by Luis Mike
[2018-05-04 13:45] VITALS: BP 155/103
[2018-05-04] MEDS ORDERED: amLODIPine 5 MG TAB PO ONE (13:45)
[2018-05-04 13:56] LABS: ABG BASE EXCESS 1.1 (-2.0-2.0); ABG HCO3 22.1 MEQ/L (22.0-26.0); ABG O2 SATURATION 97.2 % (95.0-99.0); ABG PARTIAL PRESSURE CO2 26.1 mmHg (35.0-45.0); ABG PARTIAL PRESSURE O2 87.6 mmHg (75.0-100.0); ABG STANDARD HCO3 25.4 MEQ/L (22.0-26.0); ABG TOTAL CO2 22.9 MEQ/L (23.0-31.0); ABG pH (ARTERIAL) 7.545 UNITS (7.350-7.450)
[2018-05-04] MEDS ORDERED: ISOVUE-370 76% 100ML VIAL (Q9967) As Ordered ONE (13:57)
[2018-05-04] MEDS ORDERED: D5W/0.45% SODIUM CHLORIDE 1,000 ML IV ONE (14:00)
[2018-05-04 14:30] LABS: HEMOGLOBIN A1c 4.8 %
--- NOTE | 2018-05-04 14:45 | REP ---
CT pulmonary angiogram: With IV contrast. History: Chest pain. Comparison studies: August 09, 2016. Contrast dose: 75 mL of Isovue [address] technique: Helical scanning is acquired and overlapping 1.5 mm and contiguous 3 mm axial images are reformatted. In addition, maximum intensity projection and multiplanar re-formation images are generated in sagittal and coronal imaging projections. CT pulmonary angiographic findings: There is good opacification of the pulmonary arterial tree. There is no CT evidence of pulmonary embolism. Thoracic aorta is rather tortuous but normal in caliber showing mild calcification. No aneurysm or dissection is seen. Some coronary artery vascular calcification is seen. There is no evidence of hilar or mediastinal mass or adenopathy. No pericardial effusion is seen. There is a small sliver of pleural fluid visible on the right. There is some pleural thickening and adjacent fibrosis posteriorly on the right. There is a granulomatous calcification in the left upper lobe. There are scattered perifissural benign nodules which are unchanged. There are two noncalcified pulmonary nodules in the left lower lobe which appear a little less prominent than on the July 2016 study measuring 6 and 5 mm in greatest diameter respectively, previously 8 and 7 mm. No new pulmonary nodule is appreciated. There is a pleural-based right upper lobe nodule which is unchanged measuring 5 mm. No bony destructive lesion is seen. Impression: No CT evidence of pulmonary embolus. Small stable bilateral subcentimeter pulmonary nodules. Thin sliver of right pleural fluid. Old healed right rib fractures and left rib fractures again noted. Otherwise no acute disease. Electronically Signed by Nakul Colon MD 05/04/2018 05:54 P
[2018-05-04 15:21] LABS: OSMOLALITY SERUM 275 MOSM/KG (280-301)
[2018-05-04 15:26] LABS: ETHYL ALCOHOL (ETHANOL) < 0.003 % (0.000-0.010)
--- NOTE | 2018-05-04 16:24 | REP ---
CT abdomen and pelvis without IV contrast: History: Abdomen pain. Intravenous contrast administered earlier this p.m. for CT angiography of the chest. No comparison abdominal CT. CT findings: Digital preliminary maker up folding radiograph demonstrates contrast opacified urine in the urinary bladder. The bowel gas pattern shows air filled loops of large and small bowel scattered throughout the abdomen. On axial CT images the liver and the spleen are normal in size and homogeneous in texture. No pancreatic lesion is seen. The gallbladder is unremarkable. The kidneys enhance symmetrically. There is no evidence of hydronephrosis. No filling defect is seen in the collecting system on either side. The ureters are unremarkable. No retroperitoneal mass or adenopathy is seen. No pelvic mass or adenopathy is observed. There is a large amount of formed stool in the rectum. There are dystrophic calcifications in the prostate. No gastrointestinal obstructive lesion is seen. No evidence of free air or abnormal fluid collection. Impression: Moderate amount of formed stool dilating the rectum. Otherwise negative CT abdomen and pelvis. Contrast enhancement of the urinary tract from the contrast injection done earlier this afternoon. Electronically Signed by Nakul Colon MD 05/04/2018 05:57 P
[2018-05-04 16:54] LABS: BLOOD UREA NITROGEN 6 MG/DL (7-18); CALCIUM LEVEL 8.4 MG/DL (8.8-10.2); CARBON DIOXIDE LEVEL 25 MEQ/L (21-32); CHLORIDE LEVEL 96 MEQ/L (98-107); CREATININE FOR GFR 0.64 MG/DL (0.70-1.30); GLOMERULAR FILTRATION RATE > 60.0 (>49); GLUCOSE, FASTING 158 MG/DL (70-100); POTASSIUM SERUM 3.6 MEQ/L (3.5-5.1); SODIUM LEVEL 130 MEQ/L (136-145)
[2018-05-04] MEDS: NS 1,000 ML IV SCH (17:15)
[2018-05-04 18:52] LABS: AMPHETAMINES LEVEL URINE NEGATIVE (NEGATIVE); BARBITURATES URINE NEGATIVE (NEGATIVE)
[2018-05-04 18:53] LABS: BENZODIAZEPINES URINE NEGATIVE (NEGATIVE); CANNABINOIDS URINE NEGATIVE (NEGATIVE); COCAINE METABOLITE URINE NEGATIVE (NEGATIVE); METHADONE URINE NEGATIVE (NEGATIVE); OPIATES URINE NEGATIVE (NEGATIVE); PHENCYCLIDINE URINE NEGATIVE (NEGATIVE)
[2018-05-04 18:58] LABS: INFLUENZA A AMPLIFICATION NEGATIVE (NEGATIVE); INFLUENZA B AMPLIFICATION NEGATIVE (NEGATIVE)
[2018-05-04] MEDS: cefTRIAXone SOD 1 GM in D5W MINI-BAG PLUS 50 ML IV SCH (22:26)
[2018-05-04 23:30] VITALS: BP 140/82
[2018-05-05 02:00] VITALS: BP 138/88
[2018-05-05 05:41] LABS: HEMATOCRIT 34.2 % (42.0-52.0); MEAN CORPUSCULAR HEMOGLOBIN 31.7 pg (27.0-33.0); MEAN CORPUSCULAR HGB CONC 34.2 g/dl (32.0-36.5); MEAN CORPUSCULAR VOLUME 92.7 fl (80.0-96.0); RED BLOOD COUNT 3.69 10^6/uL (4.30-6.10); WHITE BLOOD COUNT 8.7 10^3/uL (4.0-10.0)
[2018-05-05 05:54] LABS: HEMOGLOBIN 11.7 g/dl (13.5-17.5); PLATELET COUNT, AUTOMATED 269 10^3/uL (150-450)
[2018-05-05 06:00] VITALS: BP 144/84
[2018-05-05 06:12] LABS: BLOOD UREA NITROGEN 4 MG/DL (7-18); CARBON DIOXIDE LEVEL 24 MEQ/L (21-32); CHLORIDE LEVEL 98 MEQ/L (98-107); CREATININE FOR GFR 0.46 MG/DL (0.70-1.30); GLOMERULAR FILTRATION RATE > 60.0 (>49); GLUCOSE, FASTING 85 MG/DL (70-100); POTASSIUM SERUM 3.5 MEQ/L (3.5-5.1); SODIUM LEVEL 132 MEQ/L (136-145)
[2018-05-05] MEDS ORDERED: traMADol 50 MG TAB PO ONE (06:30)
[2018-05-05] MEDS: NS 1,000 ML IV SCH ×4 (06:37→21:14)
[2018-05-05 10:00] VITALS: BP 141/87
[2018-05-05] MEDS: ENOXAPARIN 40 MG/0.4 ML SYRINGE (J1650) SC SCH (10:30)
[2018-05-05] MEDS: VITAMIN D 1,000 INTERNATIONAL UNITS TABLET PO SCH (10:31)
[2018-05-05] MEDS: ASPIRIN 81 MG ENTERIC TAB PO SCH (10:31)
[2018-05-05] MEDS: levETIRAcetam 250MG TABLET (KEPPRA) PO SCH ×2 (10:32→21:14)
[2018-05-05 14:00] VITALS: BP 122/78
[2018-05-05 14:00] LABS: VITAMIN B12 LEVEL 386 PG/ML (247-911)
--- NOTE | 2018-05-05 16:04 | IPNPDOC ---
Subjective Date Seen The patient was seen on 05/05/18. Subjective Chief Complaint/HPI Patient seen and examined at the bedside. No acute overnight events noted. The patient was noted to be doing better with physical therapy at the bedside today. Objective Physical Examination General Exam: Positive: Alert, Cooperative, No Acute Distress ENT Exam: Positive: Atraumatic, Mucous membr. 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 Continue Keppra Urinary tract infection Urine culture pending Continue Rocephin White blood cell count has normalized DVT prophylaxis Lovenox subcutaneous VS, I&O, 24H, [facility] Vital Signs/I&O Vital Signs Date Time Temp Pulse Resp B/P (MAP) Pulse Ox O2 Delivery O2 Flow Rate FiO2 05/05/18 14:00 98.6 90 17 122/78 (93) 97 Room Air I&O- Last 24 Hours up to 6 AM 05/05/18 06:00 Intake Total 1600 ml Output Total 350 ml Balance 1250 ml Laboratory Data 24H LABS Laboratory Tests 2 05/04/18 16:22: Anion Gap 9, Glomerular Filtration Rate > 60.0, Lactic Acid Level 2.6*H, Blood Urea Nitrogen 6L, Creatinine 0.64L, Sodium Level 130L, Potassium Level 3.6, Chloride Level 96L, Carbon Dioxide Level 25, Calcium Level 8.4L 05/04/18 18:20: Influenza Type A (RT-PCR) NEGATIVE, Influenza Type B (RT-PCR) NEGATIVE 05/04/18 20:37: Lactic Acid Followup at 4 Hours 2.2*H 05/05/18 00:13: Bedside Glucose (Misc Panel) 105 05/05/18 05:31: Nucleated Red Blood Cells % (auto) 0.0, Anion Gap 10, Glomerular Filtration Rate > 60.0, Lactic Acid Level 1.3, Blood Urea Nitrogen 4L, Creatinine 0.46L, Sodium Level 132L, Potassium Level 3.5, Chloride Level 98, Carbon Dioxide Level 24, Calcium Level 8.0L, Vitamin B12 Level 386 CBC/BMP Laboratory Tests 05/04/18 16:22 Calcium Level 8.4 L 05/05/18 05:31 Calcium Level 8.0 L, Red Blood Count 3.69 L, Mean Corpuscular Volume 92.7, Mean Corpuscular Hemoglobin 31.7, Mean Corpuscular Hemoglobin Concent 34.2, Red Cell Distribution Width 12.8 Microbiology Microbiology 05/04/18 Blood Culture - Preliminary, Resulted No growth after 24 hours . All specim... 05/04/18 Blood Culture - Preliminary, Resulted No growth after 24 hours . All specim... 05/04/18 Urine Culture, Received Pending JENNIE DAVILA MD May 05, 2018 16:04
[2018-05-05 18:00] VITALS: BP 148/87
--- NOTE | 2018-05-05 19:46 | HPE ---
DATE OF ADMISSION: 05/04/2018 CHIEF COMPLAINT: Failure to thrive, inability for to continue to care for this patient. HISTORY OF PRESENT ILLNESS: This is a 62-year-old gentleman with past medical history of alcohol abuse and seizure disorder, as well as vitamin B12 deficiency who presents with reported chief complaint of his unable to continue to care for him at home. He is apparently drinking 2-3 tall beers a day and has a long history of alcohol abuse. He feels like his legs do not work well any more and his sensation there is impaired. He also reports low back pain that is constant and 5/10. He uses a walker and has not reported as fall as of yet. He has no other symptoms. In the emergency room, the patient was admitted for placement. In addition the patient had a lactic acidosis at 8.9 of unclear etiology. He was given intravenous (IV) fluids and no antibiotics as there is no clear infectious source. REVIEW OF SYSTEMS: Negative systems except as noted above. PAST MEDICAL HISTORY: 1. Seizure disorder. 2. Alcohol abuse. 3. Vitamin B12 deficiency. PAST SURGICAL HISTORY: Bilateral knee surgery. MEDICATIONS: - aspirin 81 mg daily - vitamin D1000 units daily - Keppra 1000 mg twice daily ALLERGIES: No known drug allergies. SOCIAL HISTORY: The patient lives with his . He has five daughters from a previous marriage. He drinks 203 tall beers a day. He denies any history of alcohol withdrawal. He is interested in quitting. His last drink was two days ago and he is not experiencing withdrawal symptoms. FAMILY HISTORY: His sister of bone cancer. PHYSICAL EXAMINATION: VITAL SIGNS: He is currently afebrile with a temperature of 98.3. His most recent blood pressure is 135/86, heart rate 91, satting 97% on room air. GENERAL: He is an elderly male, looking disheveled. HEENT: Oropharynx clear. NECK: Supple. CARDIOVASCULAR: Regular rate and rhythm, no murmurs, rubs, gallops. LUNGS: Clear to auscultation bilaterally. ABDOMEN: Soft, slightly distended but nontender. EXTREMITIES: No clubbing, cyanosis or edema. NEUROLOGY: The patient is awake, alert and oriented times three. Moves all extremities equally. The patient was not asked to do a gait at this time. MUSCULOSKELETAL: The patient's right lower extremity appears weaker than the left. He has no lower back pain noticed to palpation at this time. PSYCHIATRIC: Mood is stable. SKIN: Intact. LABORATORY DATA: Initial lactate 8.9, now improved to 2.6. Chemistries show sodium 130, creatinine 0.6. Glucose slightly elevated to 158. His A1c was 4.8. CBC with mild leukocytosis to 12.3. Urine shows 5 whites, 2 reds, negative nitrites, negative leukocyte esterase. Blood cultures are pending and urine cultures pending at this time. IMAGING: The patient had a chest x-ray done that shows multiple healed rib fractures bilaterally. There is a loop recorded. Otherwise no acute disease. CTA of the chest shows no CT evidence of pulmonary embolus (PE). There is small stable bilateral subcentimeter pulmonary nodules. There are old healed rib fractures. CT of the abdomen and pelvis show moderate amount of formed stool dilating the rectum. Otherwise negative CT of the abdomen and pelvis. ASSESSMENT AND PLAN: This is a 63-year-old gentleman with history of alcohol abuse, vitamin B12 deficiency, seizure disorder who presents with the chief complaint of " legs don't work", low back pain and inability for family to continue to care for the patient. PROBLEMS: 1. Impaired gait. Give the patient's longstanding history of alcohol abuse and vitamin B12 deficiency I do have concerns of possible degeneration of the posterior and lateral columns which is associated with alcohol abuse. Primary team can consider obtaining an MRI of the spine tomorrow. I will check a vitamin B12 level. We can have physical therapy assess him tomorrow to assess his gait. 2. Lactic acidosis. At the time the patient was admitted he has no fevers and I do not see an obvious sign of pulmonary infection. His white count was elevated to 12 and his urinalysis (UA) is slightly positive with 5 whites. Given impressive lactic acidosis on admission I did go ahead and give him intravenous (IV) ceftriaxone in case there is some sort of infectious etiology component given that he had a slightly positive UA. Repeat lactate is improved and I will check another one in the morning. He did receive IV fluid hydration in the emergency room. His viral panel is pending. 3. History of seizure disorder. We will continue his home Keppra. 4. Hypertension on admission. The patient does not carry a history of hypertension but came in with blood pressures up to 194/111 on admission. It is now significantly improved and we will monitor this. He may have to go home with antihypertensives. 5. History of alcohol abuse. At this time the patient is interested in quitting. I have placed a social work consult to provide him resources. He does not have any evidence of withdrawal but I will go ahead and put him on a Clinical [place] Withdrawal Assessment (CIWA) protocol and monitor for withdrawal symptoms. His last drink was two days ago. 6. Deep venous thrombosis (DVT) prophylaxis. I have started him on Lovenox.
[2018-05-05 22:00] VITALS: BP 130/81
[2018-05-05] MEDS: cefTRIAXone SOD 1 GM in D5W MINI-BAG PLUS 50 ML IV SCH (22:42)
[2018-05-06] VITALS (7 sets, daily range): BP systolic 138–162; BP diastolic 72–99
[2018-05-06] MEDS: NS 1,000 ML IV SCH (02:02)
[2018-05-06 08:40] LABS: HEMATOCRIT 35.6 % (42.0-52.0); HEMOGLOBIN 12.2 g/dl (13.5-17.5); MEAN CORPUSCULAR HEMOGLOBIN 31.9 pg (27.0-33.0); MEAN CORPUSCULAR HGB CONC 34.3 g/dl (32.0-36.5); MEAN CORPUSCULAR VOLUME 93.2 fl (80.0-96.0); PLATELET COUNT, AUTOMATED 274 10^3/uL (150-450); RED BLOOD COUNT 3.82 10^6/uL (4.30-6.10); WHITE BLOOD COUNT 6.6 10^3/uL (4.0-10.0)
[2018-05-06 09:01] LABS: BLOOD UREA NITROGEN 2 MG/DL (7-18); CALCIUM LEVEL 8.3 MG/DL (8.8-10.2); CARBON DIOXIDE LEVEL 24 MEQ/L (21-32); CHLORIDE LEVEL 102 MEQ/L (98-107); CREATININE FOR GFR 0.47 MG/DL (0.70-1.30); GLOMERULAR FILTRATION RATE > 60.0 (>49); GLUCOSE, FASTING 91 MG/DL (70-100); MAGNESIUM LEVEL 1.5 MG/DL (1.8-2.4); SODIUM LEVEL 134 MEQ/L (136-145)
[2018-05-06] MEDS: ENOXAPARIN 40 MG/0.4 ML SYRINGE (J1650) SC SCH (10:56)
[2018-05-06] MEDS: levETIRAcetam 250MG TABLET (KEPPRA) PO SCH ×2 (10:57→20:21)
[2018-05-06] MEDS: ACETAMINOPHEN TAB 650MG DOSE (2X325MG) PO PRN (10:57)
[2018-05-06] MEDS: VITAMIN D 1,000 INTERNATIONAL UNITS TABLET PO SCH (10:57)
[2018-05-06] MEDS: ASPIRIN 81 MG ENTERIC TAB PO SCH (10:57)
--- NOTE | 2018-05-06 11:13 | REP ---
MR LUMBAR SPINE WITHOUT CONTRAST: HISTORY: Left side weakness. Decreased signal intensity on T2-weighted images is present in the L1-2 and L3-4 through L5-S1 intervertebral discs. The discs are decreased in height. These findings are consistent with disc degeneration. A diffuse disc bulge is present at the L1-2 level. There is minimal compression of the thecal sac. There is hypertrophy of the posterior articulating facets. The L1 nerves exit the neural foramina without compression. A diffuse disc bulge is present at the L2-3 level. There is hypertrophy of the ligamenta flava and posterior articulating facets. These findings produce minimal central canal stenosis. The L2 nerves exit the neural foramina without compression. A diffuse disc bulge is present at the L3-4 level. There is hypertrophy of the ligamenta flava and posterior articulating facets. There are 3 mm of grade 1 spondylolisthesis of L3 on 4. These findings produce moderate central canal stenosis. The L3 nerves exit the neural foramina without compression. A diffuse disc bulge and small central disc protrusion are present at the L4-5 level. There is hypertrophy of the ligamenta flava and posterior articulating facets. These findings produce minimal central canal stenosis. The L4 nerves exit the neural foramina without compression. A diffuse disc bulge is present at the L5-S1 level. This abuts the thecal sac and S1 nerves. There is hypertrophy of the posterior articulating facets. The L5 nerves exits the neural foramina without compression. The conus medullaris is normal in appearance terminating at the level of the T12-L1 intervertebral disc. Increased signal intensity on T2-weighted images is present in the endplates of L1-S1 vertebral bodies. This represents degenerative change. IMPRESSION: 1. Diffuse disc bulge at the L1-2 with minimal thecal sac compression. 2. Minimal central canal stenosis at the L2-3 level secondary to disc bulge, ligamentous, and facet hypertrophy. 3. Moderate central canal stenosis at the L3-4 level secondary to disc bulge, ligamentous, and facet hypertrophy and grade 1 spondylolisthesis. 4. Minimal central canal stenosis at the L4-5 level secondary to disc bulge, disc protrusion, ligamentous, and facet hypertrophy. 5. Diffuse disc bugle at the L5-S1 level. This abuts the thecal sac and S1 nerves. Electronically Signed by Vipul Prajapati MD 05/06/2018 11:22 A
[2018-05-06] MEDS ORDERED: POTASSIUM CHLORIDE 10 MEQ SR TABLET PO ONE ×2 (13:00→21:00)
[2018-05-06] MEDS: MAG SULF 1GM/100ML (MAG RUN) 1 GM in APPROPRIATE DILUENT 1 EA IV SCH (13:26)
--- NOTE | 2018-05-06 14:01 | IPNPDOC ---
Subjective Date Seen The patient was seen on 05/06/18. Subjective Chief Complaint/HPI Patient seen and examined at the bedside. Denies any acute overnight events. Notes that he is progressing with PT. Objective Physical Examination General Exam: Positive: Alert, Cooperative, No Acute Distress ENT Exam: Positive: Atraumatic, Mucous membr. moist/pink Neck Exam: Negative: JVD Chest Exam: Positive: Clear to auscultation, Normal air movement Heart Exam: Positive: Rate Normal, Normal S1, Normal S2 Abdomen Exam: Positive: Soft; Negative: Tenderness Extremity Exam: Negative: Tenderness, Swelling Neuro Exam: Positive: Strength at 5/5 X4 ext, Normal Tone, Sensation Intact Psych Exam: Positive: Oriented x 3 Assessment /Plan Plan/VTE VTE Prophylaxis Ordered?: Yes Plan Impaired Gait, Debility with Hx of Trauma Injury No focal neurological deficits--no signs of cauda equina Lumbar Spine MRI noted w PT/OT on board for functional optimization--patient continues to progress 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 Continue Keppra Urinary tract infection Urine culture pending Continue Rocephin White blood cell count has normalized DVT prophylaxis Lovenox subcutaneous VS, I&O, 24H, [facility] Vital Signs/I&O Vital Signs Date Time Temp Pulse Resp B/P (MAP) Pulse Ox O2 Delivery O2 Flow Rate FiO2 05/06/18 10:00 98.2 94 16 153/84 (107) 97 Room Air I&O- Last 24 Hours up to 6 AM 05/06/18 05:59 Intake Total 3235 ml Output Total 200 ml Balance 3035 ml Laboratory Data 24H LABS Laboratory Tests 2 05/06/18 08:05: Nucleated Red Blood Cells % (auto) 0.0, Anion Gap 8, Glomerular Filtration Rate > 60.0, Blood Urea Nitrogen 2L, Creatinine 0.47L, Sodium Level 134L, Potassium Level 3.0L, Chloride Level 102, Carbon Dioxide Level 24, Calcium Level 8.3L, Magnesium Level 1.5L CBC/BMP Laboratory Tests 05/06/18 08:05 Red Blood Count 3.82 L, Mean Corpuscular Volume 93.2, Mean Corpuscular Hemoglobin 31.9, Mean Corpuscular Hemoglobin Concent 34.3, Red Cell Distribution Width 13.1, Calcium Level 8.3 L Microbiology Microbiology 05/04/18 Blood Culture - Preliminary, Resulted No Growth after 48 hours. All Specime... 05/04/18 Blood Culture - Preliminary, Resulted No Growth after 48 hours. All Specime... 05/04/18 Urine Culture, Received Pending JENNIE DAVILA MD May 06, 2018 14:01
[2018-05-06] MEDS: cefTRIAXone SOD 1 GM in D5W MINI-BAG PLUS 50 ML IV SCH (22:14)
[2018-05-07] VITALS (8 sets, daily range): BP systolic 120–153; BP diastolic 78–91
[2018-05-07] MEDS: ACETAMINOPHEN TAB 650MG DOSE (2X325MG) PO PRN (03:20)
[2018-05-07 08:36] LABS: HEMATOCRIT 37.7 % (42.0-52.0); HEMOGLOBIN 12.6 g/dl (13.5-17.5); MEAN CORPUSCULAR HEMOGLOBIN 31.6 pg (27.0-33.0); MEAN CORPUSCULAR HGB CONC 33.4 g/dl (32.0-36.5); MEAN CORPUSCULAR VOLUME 94.5 fl (80.0-96.0); PLATELET COUNT, AUTOMATED 305 10^3/uL (150-450); RED BLOOD COUNT 3.99 10^6/uL (4.30-6.10); WHITE BLOOD COUNT 6.6 10^3/uL (4.0-10.0)
[2018-05-07 09:18] LABS: BLOOD UREA NITROGEN 3 MG/DL (7-18); CALCIUM LEVEL 8.8 MG/DL (8.8-10.2); CARBON DIOXIDE LEVEL 21 MEQ/L (21-32); CHLORIDE LEVEL 103 MEQ/L (98-107); CREATININE FOR GFR 0.58 MG/DL (0.70-1.30); GLOMERULAR FILTRATION RATE > 60.0 (>49); GLUCOSE, FASTING 102 MG/DL (70-100); MAGNESIUM LEVEL 1.9 MG/DL (1.8-2.4); POTASSIUM SERUM 4.3 MEQ/L (3.5-5.1); SODIUM LEVEL 134 MEQ/L (136-145)
[2018-05-07] MEDS: ENOXAPARIN 40 MG/0.4 ML SYRINGE (J1650) SC SCH (09:19)
[2018-05-07] MEDS: VITAMIN D 1,000 INTERNATIONAL UNITS TABLET PO SCH (09:20)
[2018-05-07] MEDS: levETIRAcetam 250MG TABLET (KEPPRA) PO SCH ×2 (09:20→20:13)
[2018-05-07] MEDS: ASPIRIN 81 MG ENTERIC TAB PO SCH (09:20)
--- NOTE | 2018-05-07 12:04 | IPNPDOC ---
Subjective Date Seen The patient was seen on 05/07/18. Subjective Chief Complaint/HPI Patient seen and examined at the bedside. Reports he continues to progress with physical therapy. No acute overnight events noted. Objective Physical Examination General Exam: Positive: Alert, Cooperative, No Acute Distress ENT Exam: Positive: Atraumatic, Mucous membr. moist/pink Neck Exam: Negative: JVD Chest Exam: Positive: Clear to auscultation, Normal air movement Heart Exam: Positive: Rate Normal, Normal S1, Normal S2 Abdomen Exam: Positive: Soft; Negative: Tenderness Extremity Exam: Negative: Tenderness, Swelling Neuro Exam: Positive: Strength at 5/5 X4 ext, Normal Tone, Sensation Intact Psych Exam: Positive: Oriented x 3 Assessment /Plan Plan/VTE VTE Prophylaxis Ordered?: Yes Plan Impaired Gait, Debility with Hx of Trauma Injury No focal neurological deficits--no signs of cauda equina Lumbar Spine MRI noted w PT/OT on board for functional optimization--patient continues to progress 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 VS, I&O, 24H, [facility] Vital Signs/I&O Vital Signs Date Time Temp Pulse Resp B/P (MAP) Pulse Ox O2 Delivery O2 Flow Rate FiO2 05/07/18 10:00 97.7 80 18 120/78 (92) 96 Room Air I&O- Last 24 Hours up to 6 AM 05/07/18 05:59 Intake Total 4400 ml Output Total 850 ml Balance 3550 ml Laboratory Data 24H LABS Laboratory Tests 2 05/07/18 08:14: Nucleated Red Blood Cells % (auto) 0.0, Anion Gap 10, Glomerular Filtration Rate > 60.0, Blood Urea Nitrogen 3L, Creatinine 0.58L, Sodium Level 134L, Potassium Level 4.3#, Chloride Level 103, Carbon Dioxide Level 21, Calcium Level 8.8, Magnesium Level 1.9 CBC/BMP Laboratory Tests 05/07/18 08:14 Red Blood Count 3.99 L, Mean Corpuscular Volume 94.5, Mean Corpuscular Hemoglobin 31.6, Mean Corpuscular Hemoglobin Concent 33.4, Red Cell Distribution Width 13.2, Calcium Level 8.8 Microbiology Microbiology 05/04/18 Blood Culture - Preliminary, Resulted No Growth after 48 hours. All Specime... 05/04/18 Blood Culture - Preliminary, Resulted No Growth after 72 hours. All specime... 05/04/18 Urine Culture - Final, Complete Enterococcus Faecalis JENNIE DAVILA MD May 07, 2018 12:04
[2018-05-07] MEDS: cefTRIAXone SOD 1 GM in D5W MINI-BAG PLUS 50 ML IV SCH (22:04)
[2018-05-08 02:00] VITALS: BP 149/89
[2018-05-08 06:00] VITALS: BP 140/90
[2018-05-08] MEDS: ASPIRIN 81 MG ENTERIC TAB PO SCH (08:21)
[2018-05-08] MEDS: levETIRAcetam 250MG TABLET (KEPPRA) PO SCH ×2 (08:21→20:58)
[2018-05-08] MEDS: ACETAMINOPHEN TAB 650MG DOSE (2X325MG) PO PRN ×2 (08:22→21:03)
[2018-05-08] MEDS: VITAMIN D 1,000 INTERNATIONAL UNITS TABLET PO SCH (08:22)
[2018-05-08] MEDS: ENOXAPARIN 40 MG/0.4 ML SYRINGE (J1650) SC SCH (08:22)
[2018-05-08 10:00] VITALS: BP 124/87
--- NOTE | 2018-05-08 11:52 | IPNPDOC ---
Subjective Date Seen The patient was seen on 05/08/18. Subjective Chief Complaint/HPI Patient seen and examined at the bedside. No acute overnight events noted. Objective Physical Examination General Exam: Positive: Alert, Cooperative, No Acute Distress ENT Exam: Positive: Atraumatic, Mucous membr. moist/pink Neck Exam: Negative: JVD Chest Exam: Positive: Clear to auscultation, Normal air movement Heart Exam: Positive: Rate Normal, Normal S1, Normal S2 Abdomen Exam: Positive: Soft; Negative: Tenderness Extremity Exam: Negative: Tenderness, Swelling Neuro Exam: Positive: Strength at 5/5 X4 ext, Normal Tone, Sensation Intact Psych Exam: Positive: Oriented x 3 Assessment /Plan Plan/VTE VTE Prophylaxis Ordered?: Yes Plan Impaired Gait, Debility with Hx of Trauma Injury No focal neurological deficits--no signs of cauda equina Lumbar Spine MRI noted PT/OT on board for functional optimization--patient continues to progress 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 Faecalis s/p Rocephin course White blood cell count has normalized DVT prophylaxis Lovenox subcutaneous Dispo--pending PT clearance. VS, I&O, 24H, Fishbone Vital Signs/I&O Vital Signs Date Time Temp Pulse Resp B/P (MAP) Pulse Ox O2 Delivery O2 Flow Rate FiO2 05/08/18 10:00 97.5 87 15 124/87 (99) 99 Room Air I&O- Last 24 Hours up to 6 AM 05/08/18 05:59 Intake Total 4680 ml Output Total 1750 ml Balance 2930 ml Laboratory Data Microbiology Microbiology 05/04/18 Blood Culture - Preliminary, Resulted No Growth after 72 hours. All specime... 05/04/18 Blood Culture - Preliminary, Resulted No Growth after 72 hours. All specime... 05/04/18 Urine Culture - Final, Complete Enterococcus Faecalis JENNIE DAVILA MD May 08, 2018 11:52
[2018-05-08 14:00] VITALS: BP 128/78
[2018-05-08 18:00] VITALS: BP 152/88
[2018-05-08 22:00] VITALS: BP 120/87
[2018-05-09 02:00] VITALS: BP 132/87
[2018-05-09] MEDS: ACETAMINOPHEN TAB 650MG DOSE (2X325MG) PO PRN ×2 (05:28→20:48)
[2018-05-09 06:00] VITALS: BP 122/74
[2018-05-09] MEDS: ASPIRIN 81 MG ENTERIC TAB PO SCH (08:08)
[2018-05-09] MEDS: VITAMIN D 1,000 INTERNATIONAL UNITS TABLET PO SCH (08:08)
[2018-05-09] MEDS: levETIRAcetam 250MG TABLET (KEPPRA) PO SCH ×2 (08:09→20:47)
[2018-05-09] MEDS: ENOXAPARIN 40 MG/0.4 ML SYRINGE (J1650) SC SCH (08:09)
[2018-05-09 10:00] VITALS: BP 135/86
--- NOTE | 2018-05-09 10:32 | IPNPDOC ---
Subjective Date Seen The patient was seen on 05/09/18. Subjective Chief Complaint/HPI Patient seen and examined at the bedside. No acute overnight events noted. Objective Physical Examination General Exam: Positive: Alert, Cooperative, No Acute Distress ENT Exam: Positive: Atraumatic, Mucous membr. moist/pink Neck Exam: Negative: JVD Chest Exam: Positive: Clear to auscultation, Normal air movement Heart Exam: Positive: Rate Normal, Normal S1, Normal S2 Abdomen Exam: Positive: Soft; Negative: Tenderness Extremity Exam: Negative: Tenderness, Swelling Neuro Exam: Positive: Strength at 5/5 X4 ext, Normal Tone, Sensation Intact Psych Exam: Positive: Oriented x 3 Assessment /Plan Plan/VTE VTE Prophylaxis Ordered?: Yes Plan Impaired Gait, Debility with Hx of Trauma Injury No focal neurological deficits--no signs of cauda equina Lumbar Spine MRI noted PT/OT on board for functional optimization--patient continues to progress, however may require rehab 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 Faecalis s/p Rocephin course White blood cell count has normalized DVT prophylaxis Lovenox subcutaneous Dispo--pending PT clearance, may require rehab. VS, I&O, 24H, Fishbone Vital Signs/I&O Vital Signs Date Time Temp Pulse Resp B/P (MAP) Pulse Ox O2 Delivery O2 Flow Rate FiO2 05/09/18 06:00 98.9 81 18 122/74 (90) 96 Room Air I&O- Last 24 Hours up to 6 AM 05/09/18 05:59 Intake Total 5890 ml Output Total 2900 ml Balance 2990 ml Laboratory Data Microbiology Microbiology 05/04/18 Blood Culture - Preliminary, Resulted No Growth after 72 hours. All specime... 05/04/18 Blood Culture - Preliminary, Resulted No Growth after 72 hours. All specime... 05/04/18 Urine Culture - Final, Complete Enterococcus Faecalis JENNIE DAVILA MD May 09, 2018 10:32
[2018-05-09 12:33] VITALS: BP 130/80
[2018-05-09 18:00] VITALS: BP 131/75
[2018-05-09 22:00] VITALS: BP 148/90
[2018-05-10 02:00] VITALS: BP 123/77
[2018-05-10 06:00] VITALS: BP 145/89
[2018-05-10] MEDS: ACETAMINOPHEN TAB 650MG DOSE (2X325MG) PO PRN (06:01)
[2018-05-10 08:18] LABS: HEMATOCRIT 35.7 % (42.0-52.0); HEMOGLOBIN 12.2 g/dl (13.5-17.5); MEAN CORPUSCULAR HEMOGLOBIN 31.4 pg (27.0-33.0); MEAN CORPUSCULAR HGB CONC 34.2 g/dl (32.0-36.5); MEAN CORPUSCULAR VOLUME 91.8 fl (80.0-96.0); PLATELET COUNT, AUTOMATED 418 10^3/uL (150-450); RED BLOOD COUNT 3.89 10^6/uL (4.30-6.10); WHITE BLOOD COUNT 7.2 10^3/uL (4.0-10.0)
[2018-05-10] MEDS: VITAMIN D 1,000 INTERNATIONAL UNITS TABLET PO SCH (08:18)
[2018-05-10] MEDS: levETIRAcetam 250MG TABLET (KEPPRA) PO SCH ×2 (08:18→20:11)
[2018-05-10] MEDS: ASPIRIN 81 MG ENTERIC TAB PO SCH (08:18)
[2018-05-10] MEDS: ENOXAPARIN 40 MG/0.4 ML SYRINGE (J1650) SC SCH (08:19)
[2018-05-10 08:43] LABS: BLOOD UREA NITROGEN 4 MG/DL (7-18); CALCIUM LEVEL 9.1 MG/DL (8.8-10.2); CARBON DIOXIDE LEVEL 22 MEQ/L (21-32); CHLORIDE LEVEL 100 MEQ/L (98-107); CREATININE FOR GFR 0.64 MG/DL (0.70-1.30); GLOMERULAR FILTRATION RATE > 60.0 (>49); GLUCOSE, FASTING 115 MG/DL (70-100); MAGNESIUM LEVEL 1.7 MG/DL (1.8-2.4); POTASSIUM SERUM 3.9 MEQ/L (3.5-5.1); SODIUM LEVEL 132 MEQ/L (136-145)
[2018-05-10 12:00] VITALS: BP 128/82
[2018-05-10 14:00] VITALS: BP 140/82
--- NOTE | 2018-05-10 16:37 | IPN ---
DATE: 05/10/2018 SUBJECTIVE: The patient is seen and examined in the room today. The patient continues to have hand tremors. The patient just finished physical therapy (PT) before the morning encounter. The patient stated that he feels that he has demonstrated some improvement. No events reported. OBJECTIVE: VITAL SIGNS: Temperature 98.4, pulse 89, respirations 19, blood pressure 145/89, pulse oximetry 96% on room air. GENERAL: No sign of acute distress. Alert and awake. HEENT: Normocephalic, atraumatic. Extraocular motions grossly intact. CARDIOVASCULAR: Positive S1, S2. Regular rate. LUNGS: Clear to auscultation bilaterally. ABDOMEN: Soft, nontender. EXTREMITIES: No edema appreciated. LABORATORY DATA: WBC is 7.2, hemoglobin 12.2, hematocrit 35.7, platelet count is 418. Sodium is 132, potassium 3.9, chloride 100, carbon dioxide 22, BUN 4, creatinine 0.64, GFR greater than 60, fasting glucose 115. Calcium is 9.1, magnesium 1.7. ASSESSMENT AND PLAN: 1. Gait instability with history of trauma injury. Continue physical therapy (PT) and occupational therapy (OT) for functional optimization. 2. 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 The patient is on Keppra. 3. Urinary tract infection (UTI). Urine culture from 05/04/2018 is positive for Enterococcus faecalis. The patient a course of antibiotics. 4. Deep vein thrombosis (DVT) prophylaxis. On Lovenox. MTDD
[2018-05-10 22:00] VITALS: BP 135/83
[2018-05-11 06:00] VITALS: BP 138/88
[2018-05-11 08:33] LABS: HEMOGLOBIN 12.9 g/dl (13.5-17.5); MEAN CORPUSCULAR HEMOGLOBIN 31.7 pg (27.0-33.0); MEAN CORPUSCULAR HGB CONC 33.9 g/dl (32.0-36.5); MEAN CORPUSCULAR VOLUME 93.4 fl (80.0-96.0); PLATELET COUNT, AUTOMATED 475 10^3/uL (150-450); RED BLOOD COUNT 4.07 10^6/uL (4.30-6.10); WHITE BLOOD COUNT 7.8 10^3/uL (4.0-10.0)
[2018-05-11 08:56] LABS: BLOOD UREA NITROGEN 6 MG/DL (7-18); CALCIUM LEVEL 9.6 MG/DL (8.8-10.2); CARBON DIOXIDE LEVEL 21 MEQ/L (21-32); CHLORIDE LEVEL 101 MEQ/L (98-107); CREATININE FOR GFR 0.62 MG/DL (0.70-1.30); GLOMERULAR FILTRATION RATE > 60.0 (>49); GLUCOSE, FASTING 96 MG/DL (70-100); MAGNESIUM LEVEL 1.7 MG/DL (1.8-2.4); SODIUM LEVEL 134 MEQ/L (136-145)
[2018-05-11] MEDS: ASPIRIN 81 MG ENTERIC TAB PO SCH (09:25)
[2018-05-11] MEDS: ENOXAPARIN 40 MG/0.4 ML SYRINGE (J1650) SC SCH (09:25)
[2018-05-11] MEDS: VITAMIN D 1,000 INTERNATIONAL UNITS TABLET PO SCH (09:25)
[2018-05-11] MEDS: levETIRAcetam 250MG TABLET (KEPPRA) PO SCH ×2 (09:25→20:14)
[2018-05-11 14:00] VITALS: BP 128/80
--- NOTE | 2018-05-11 19:13 | IPNPDOC ---
Text Note Date of Service The patient was seen on 05/11/18. NOTE SUBJECTIVE: The patient is seen and examined in the room today. Patient feels he is improving. Denies acute change. No events reported. OBJECTIVE: VITAL SIGNS: Listed below. GENERAL: No sign of acute distress. Alert and awake. HEENT: Normocephalic, atraumatic. Extraocular motions grossly intact. CARDIOVASCULAR: Positive S1, S2. Regular rate. LUNGS: Clear to auscultation bilaterally. ABDOMEN: Soft, nontender. EXTREMITIES: No edema appreciated. LABORATORY DATA: Listed below. ASSESSMENT AND PLAN: #. Gait instability with history of trauma injury. - Continue physical therapy (PT) and occupational therapy (OT) for functional optimization. #. 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 The patient is on Keppra. #. Urinary tract infection (UTI). - Urine culture from 05/04/2018 is positive for Enterococcus faecalis. The patient finished a course of antibiotics. # Hypomagnesemia. - On supplement. #. Deep vein thrombosis (DVT) prophylaxis. On Lovenox. VS,Fishbone, I+O VS, Fishbone, I+O Laboratory Tests 05/11/18 08:17 Red Blood Count 4.07 L, Mean Corpuscular Volume 93.4, Mean Corpuscular Hemoglobin 31.7, Mean Corpuscular Hemoglobin Concent 33.9, Red Cell Distribution Width 13.6, Calcium Level 9.6 Vital Signs Date Time Temp Pulse Resp B/P (MAP) Pulse Ox O2 Delivery O2 Flow Rate FiO2 05/11/18 14:00 98.4 90 17 128/80 (96) 96 Room Air I&O- Last 24 Hours up to 6 AM 05/11/18 06:00 Intake Total 3015 ml Output Total 3900 ml Balance -885 ml ERNESTINE QUINTEROS DO May 11, 2018 19:13
[2018-05-11] MEDS: MAGNESIUM OXIDE 400 MG TAB (MAG-OX) PO SCH (20:15)
[2018-05-11] MEDS: ACETAMINOPHEN TAB 650MG DOSE (2X325MG) PO PRN (21:42)
[2018-05-11 22:00] VITALS: BP 143/84
[2018-05-12 06:00] VITALS: BP 142/86
[2018-05-12 06:24] LABS: HEMATOCRIT 35.4 % (42.0-52.0); MEAN CORPUSCULAR HEMOGLOBIN 31.1 pg (27.0-33.0); MEAN CORPUSCULAR HGB CONC 33.9 g/dl (32.0-36.5); MEAN CORPUSCULAR VOLUME 91.7 fl (80.0-96.0); PLATELET COUNT, AUTOMATED 487 10^3/uL (150-450); RED BLOOD COUNT 3.86 10^6/uL (4.30-6.10); WHITE BLOOD COUNT 7.2 10^3/uL (4.0-10.0)
[2018-05-12 06:50] LABS: BLOOD UREA NITROGEN 5 MG/DL (7-18); CALCIUM LEVEL 9.1 MG/DL (8.8-10.2); CARBON DIOXIDE LEVEL 22 MEQ/L (21-32); CHLORIDE LEVEL 102 MEQ/L (98-107); CREATININE FOR GFR 0.63 MG/DL (0.70-1.30); GLOMERULAR FILTRATION RATE > 60.0 (>49); GLUCOSE, FASTING 85 MG/DL (70-100); MAGNESIUM LEVEL 1.7 MG/DL (1.8-2.4); POTASSIUM SERUM 3.6 MEQ/L (3.5-5.1); SODIUM LEVEL 136 MEQ/L (136-145)
[2018-05-12] MEDS: levETIRAcetam 250MG TABLET (KEPPRA) PO SCH (08:20)
[2018-05-12] MEDS: MAGNESIUM OXIDE 400 MG TAB (MAG-OX) PO SCH (08:20)
[2018-05-12] MEDS: ASPIRIN 81 MG ENTERIC TAB PO SCH (08:21)
[2018-05-12] MEDS: VITAMIN D 1,000 INTERNATIONAL UNITS TABLET PO SCH (08:21)
[2018-05-12] MEDS: ENOXAPARIN 40 MG/0.4 ML SYRINGE (J1650) SC SCH (08:21)
[2018-05-12] MEDS: ACETAMINOPHEN TAB 650MG DOSE (2X325MG) PO PRN (08:21)
[2018-05-12] MEDS ORDERED: MAG400TA PO (11:39)
[2018-05-12 14:00] VITALS: BP 148/89
--- NOTE | 2018-05-14 07:22 | DSES ---
DATE OF ADMISSION: 05/04/2018 DATE OF DISCHARGE: 05/12/2018 CONSULTANTS: None. DISCHARGE DIAGNOSES: 1. Gait instability with history of traumatic injury. 2. 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 3. Urinary tract infection. 4. Hypomagnesemia. 5. Alcohol abuse. HOSPITAL COURSE: The patient is a 63-year-old gentleman who presented to [facility] on 05/04/2018 with a complaint of failure to thrive. The patient complained about leg weakness resulting in impaired gait. The patient was also found to have lactic acid of 8.9 without clear etiology and the patient was admitted under the hospitalist service. The patient was started on IV support, diagnostics were performed and the patient was started on empiric IV antibiotics. Lactic acidosis showed gradual improvement with medical management. The patient also started working with physical therapy for evaluation and treatment. Later, urine culture was positive for Enterococcus faecalis. Sensitivity reviewed and the patient finished a course of antibiotics. The patient showed gradual improvement with physical therapy and occupational training. On 05/12/2018, the patient showed improvement and the patient was deemed stable for discharge with home services. The patient was recommended to followup with her primary care provider in one week. VITAL SIGNS ON DAY OF DISCHARGE: Showed temperature 98, pulse 81, respirations 20, blood pressure 148/89, pulse oximetry 96% in room air. LABORATORY DATA: Showed WBC 7.2, hemoglobin 12, hematocrit 35.4, platelet count 487. Sodium 136, potassium 3.6, chloride 102, carbon dioxide 22, BUN 5, creatinine 0.63, GFR less than 60, fasting glucose 85, calcium 9.1, magnesium 1.7. Urine toxicology negative on 05/04/2018. Alcohol level on 05/04/2018 was negative. Influenza negative. MICROBIOLOGY: Blood culture on 05/04/2018 negative after five days, two sets. Urine culture from 05/04/2018 is positive for Enterococcus faecalis. IMAGING STUDIES: CT angiogram of chest on 05/04/[address] evidence of pulmonary embolism. Small stable bilateral sub centimeter pulmonary nodules. Sliver of right pleural fluid. Old healed right rib fracture and left hip fracture. Otherwise no acute disease. CT of abdomen and pelvis without contrast on 05/04/2018 demonstrated moderate amount of formed stool dilating the rectum. Otherwise CT of abdomen and pelvis. DISCHARGE MEDICATIONS: - magnesium oxide 400 mg by mouth twice a day for 14 days - aspirin 81 mg by mouth daily - vitamin D 1000 units by mouth daily - Keppra 1000 mg by mouth twice a day DISCHARGE INSTRUCTIONS: Discontinue line. Discharge home with services. Ambulate with a walker. Low salt diet as tolerated. Patient shall stay with abstinence from alcohol. Patient recommended followup with primary care provider in one week. DISCHARGE CONDITION: Fair.
== END 2018-05-12 16:14 | disposition home or self-care (01) | DRG 92 ==
LOC: M ED 10:52 → M ED INP 21:37 → M MSPAV 23:30
PROVIDERS: ADMIT Internal Medicine; ATTEND Internal Medicine
DX: R26.9 Unspecified abnormalities of gait and mobility (principal); E87.2 Acidosis; N39.0 Urinary tract infection, site not specified; R62.7 Adult failure to thrive; E53.8 Deficiency of other specified B group vitamins; E83.42 Hypomagnesemia; R53.81 Other malaise; B95.2 Enterococcus as the cause of diseases classified elsewhere; G40.909 Epilepsy, unspecified, not intractable, without status epilepticus; F10.10 Alcohol abuse, uncomplicated; Z79.82 Long term (current) use of aspirin; Z79.899 Other long term (current) drug therapy

== ENCOUNTER → 2019-01-09 | Outpatient (CLI) | payer MEDICARE ==
[~2019-01-09] MED LIST changes: -ASPI1TAB PO; +ASPI81TA26 PO; -CARB1CAP2 PO; +CARB200C4 PO; +CYAN500T8 PO; +KEPP10002 PO; +MAG400TA PO; +VITA-112 PO; -VITA500T3 PO
--- NOTE | 2019-01-09 11:29 | REP ---
CT of the chest without IV contrast for follow up of lung nodules: Comparisons are 08/13/2017 and 08/09/2016. The study is performed without IV contrast. There is a pleural-based right upper lobe lung nodule on image 64 measuring 4 mm, unchanged from both prior studies. In the left lower lobe there is an 8 mm lung nodule and they are is a 7 mm lung nodule, both unchanged from both prior studies. There are no new lung nodules or masses. There are no acute infiltrates or pleural effusions. There is no mediastinal lymph node enlargement. There is no axillary lymph node enlargement. In the absence of IV contrast the study is insensitive for hilar lymph node enlargement. The thoracic aorta is unremarkable except for occasional calcified atheroma. Cardiac size is normal. There is no pericardial effusion. There is occasional coronary artery calcified vascular atheroma. The visualized upper abdominal contents are unremarkable except for a small exophytic 10 mm left renal upper pole cyst. This measured 12 mm previously. Impression: The lung nodules are stable. There are no new lung nodules. There is a stable exophytic left renal upper pole cyst as discussed. Otherwise, negative CT study of the chest. Electronically Signed by Shilo Meredith MD 01/09/2019 11:19 A
== END ==
LOC: M RAD 10:20
PROVIDERS: ATTEND Family Medicine
DX: R91.1 Solitary pulmonary nodule (principal)

== ENCOUNTER → 2019-04-25 | Outpatient (CLI) | payer MEDICAID, MEDICARE, OTHER ==
[2019-04-25 14:18] LABS: BLOOD UREA NITROGEN 9 MG/DL (7-18); CALCIUM LEVEL 9.4 MG/DL (8.8-10.2); CARBON DIOXIDE LEVEL 24 MEQ/L (21-32); CHLORIDE LEVEL 103 MEQ/L (98-107); CREATININE FOR GFR 1.15 MG/DL (0.70-1.30); GLOMERULAR FILTRATION RATE > 60.0 (>49); GLUCOSE, FASTING 94 MG/DL (70-100); SODIUM LEVEL 137 MEQ/L (136-145)
== END ==
LOC: M LAB 13:23
PROVIDERS: ATTEND Family Medicine
DX: G40.209 Localization-related (focal) (partial) symptomatic epilepsy and epileptic syndromes with complex partial seizures, not intractable, without status epilepticus (principal)

== ENCOUNTER → 2019-09-29 | Outpatient (REF) | payer MEDICARE, OTHER ==
[2019-09-29 11:35] LABS: CHOLESTEROL RISK RATIO 2.929 (<5)
== END ==
LOC: M SFHCPLAZ 08:51
PROVIDERS: ATTEND Family Medicine
DX: Z13.1 Encounter for screening for diabetes mellitus (principal); Z13.220 Encounter for screening for lipoid disorders; E78.00 Pure hypercholesterolemia, unspecified

== ENCOUNTER → 2019-10-18 | Outpatient (CLI) | payer MEDICARE, OTHER ==
[~2019-10-18] MED LIST changes: +AMLO1TAB24 PO; -AMLO5TAB6 PO
--- NOTE | 2019-10-18 14:37 | REPPI ---
RIGHT KNEE SERIES: Five views. HISTORY: Pain in the right knee. FINDINGS: Five views right knee demonstrate hip moderate osteoarthritis with joint space narrowing in the medial compartment of the right knee. There is sclerosis and osteophyte formation. There is extensive chondrocalcinosis in the lateral compartment and there is some spurring. Patellofemoral compartment narrowing and spur formation is seen. Vascular calcifications noted. There is diffuse osteopenia. No erosive change or effusion is evident. IMPRESSION: Fairly advanced three compartment osteoarthritis. Diffuse osteopenia. Vascular calcification. No acute bony abnormality. Electronically Signed by Nakul Colon MD 10/18/2019 03:02 P
== END ==
LOC: M PLAIMG 11:02
PROVIDERS: ATTEND Family Medicine
DX: M17.11 Unilateral primary osteoarthritis, right knee (principal); M85.861 Other specified disorders of bone density and structure, right lower leg; M25.561 Pain in right knee
CPT/HCPCS: 73564; G0463

== ENCOUNTER 2021-04-06 12:01 | Observation (INO) | payer MEDICARE, OTHER ==
[~2021-04-06] VITALS: Ht 177.8 cm; Wt 72.7 kg
[2021-04-06] MEDS: VITAMIN D 1,000 INTERNATIONAL UNITS TABLET PO SCH (09:00)
[2021-04-06] MEDS: FOLIC ACID 1 MG TAB PO SCH (09:00)
[2021-04-06] MEDS: ASPIRIN 81 MG CHEW TABLET PO SCH (09:00)
[2021-04-06] MEDS: MULTIVITAMINS/MINERALS THERAP 1 TAB PO SCH (09:00)
[~2021-04-06 12:01] MED LIST changes: +CYAN500T14 PO; -CYAN500T8 PO; -LISI-538 PO; +LISI20TA33 PO; -LISI40TA PO; +LISI40TA4 PO; -MAG400TA PO; +MAGN400T35 PO
[2021-04-06] MEDS ORDERED: cefTRIAXone SOD 2 GM in D5W MINI-BAG PLUS 50 ML IV ONE (12:30)
[2021-04-06] MEDS ORDERED: NS 2,170 ML in IV 1 EA IV ONE (12:30)
--- NOTE | 2021-04-06 12:51 | REP ---
INDICATION: SEPSIS/SHOCK. COMPARISON: May 04, 2018. TECHNIQUE: Portable upright AP chest radiograph. FINDINGS: The lungs are well inflated and free of infiltrate. Pleural angles are sharp. Heart size is normal. Pulmonary vasculature is not increased. There are old healed rib fractures on the right. A loop recorder is seen projecting to the left of midline. IMPRESSION: No active disease. <Electronically signed by Maximus Colon > 04/06/21 0437
[2021-04-06 12:54] LABS: BASO # 0.1 10^3/uL (0.0-0.2); BASO % 1.1 % (0.0-1.0); EOS # 0.1 10^3/uL (0.0-0.5); EOS % 0.8 % (0.0-3.0); HEMATOCRIT 40.6 % (42.0-52.0); HEMOGLOBIN 13.8 g/dl (13.5-17.5); LYMPH # 1.3 10^3/uL (1.5-5.0); MEAN CORPUSCULAR HEMOGLOBIN 30.9 pg (27.0-33.0); MONO # 0.4 10^3/uL (0.0-0.8); MONO % 5.6 % (2.0-8.0); NEUTROPHILS # 4.7 10^3/uL (1.5-8.5); PLATELET COUNT, AUTOMATED 257 10^3/uL (150-450); RED BLOOD COUNT 4.46 10^6/uL (4.30-6.10); WHITE BLOOD COUNT 6.6 10^3/uL (4.0-10.0)
[2021-04-06 13:06] LABS: INR 0.9; PROTHROMBIN TIME 12.6 SECONDS (12.7-14.5)
[2021-04-06 13:07] LABS: PARTIAL THROMBOPLASTIN TIME 23.6 SECONDS (25.9-37.0)
--- OUTSIDE RECORDS SUMMARY | 2021-04-06 13:07 | CCD ---
Author Author [facility] Organization [facility] Address Unknown Phone Unavailable Support Name Relationship Address Phone BHAVNA PRESLEY Next Of Kin [address] [place] [address] DISABLED Next Of Kin Unknown Unavailable MALIKA [place] Next Of Kin [address] [place] [address] [place] [address] RE Next Of Kin Unknown Unavailable LENCHO VALDEZ Next Of Kin [address] [facility] [address] [place] [address] [place] [address] UE Next Of Kin Unknown Unavailable UNEMPLOYED Next Of Kin - - -, - - [facility] [place] [address] LENCHO WHITEHEAD Next Of Kin [address] [place] [address] [place] [address] Lencho Whitehead [facility] [address] [place] [address] Unavailable Re-disclosure Warning The records that you are about to access may contain information from federally-assisted alcohol or drug abuse programs. If such information is present, then the following federally mandated warning applies: This information has been disclosed to you from records protected by federal confidentiality rules (42 CFR part 2). The federal rules prohibit you from making any further disclosure of this information unless further disclosure is expressly permitted by the written consent of the person to whom it pertains or as otherwise permitted by 42 CFR part 2. A general authorization for the release of medical or other information is NOT sufficient for this purpose. The Federal rules restrict any use of the information to criminally investigate or prosecute any alcohol or drug abuse patient.The records that you are about to access may contain highly sensitive health information, the redisclosure of which is protected by Article 27-F of the [facility] Public Health law. If you continue you may have access to information: Regarding HIV / AIDS; Provided by facilities licensed or operated by the [facility] Office of Mental Health; or Provided by the [facility] Office for People With Developmental Disabilities. If such information is present, then the following [facility] mandated warning applies: This information has been disclosed to you from confidential records which are protected by state law. State law prohibits you from making any further disclosure of this information without the specific written consent of the person to whom it pertains, or as otherwise permitted by law. Any unauthorized further disclosure in violation of state law may result in a fine or group home sentence or both. A general authorization for the release of medical or other information is NOT sufficient authorization for further disc losure. Family History Family Member Name Family Member Gender Family Member Status Date o f Status Description Data Source(s) Unknown Female Problem [facility] ([facility]) Encounters Encounter Providers Location Date Indications Data Source(s ) Unknown [address] [facility] [address] [address] 11/04/2020 12:00:00 AM EDT eCW1 ([facility]) Outpatient [address] [facility] [address] [address] 09/11/2020 12:00:00 AM EDT eCW1 ([facility]) Outpatient [address] [facility] [place] [address] 07/02/2020 12:00:00 AM EST eCW1 ([facility]) Unknown [address] [facility] [address] [place] [address] 05/28/2020 12:00:00 AM EST eCW1 ([facility]) Unknown [address] [facility] [address] [address] 05/08/2020 12:00:00 AM EST eCW1 ([facility]) Unknown [address] [facility] [address] [address] 02/07/2020 12:00:00 AM EDT eCW1 ([facility]) Immunizations Vaccine Date Status Description Data Source(s) COVID-19 VACCINE Moderna 08/12/2020 12:00:00 AM EDT completed [facility] Vaccine Series Complete: YESThis Data wa s Submitted to [facility] [employer]. COVID-19 VACC,MRNA(MODERNA)/PF 08/12/2020 12:00:00 AM EDT completed [facility] COVID-19 VACCINE Moderna 07/12/2020 12:00:00 AM EDT completed [facility] Vaccine Series Complete: NOThis Data was Submitted to [facility] [employer]. COVID-19 VACCINE, MRNA-1273, LNP-S (MODERNA)/PF 07/12/2020 1 2:00:00 AM EDT completed [facility] Medications Medication Brand Name Start Date Product Form Dose Route Admi nistrative Instructions Pharmacy Instructions Status Indications Reaction Description Data Source(s) 10 mg 02/16/2021 12:00:00 AM EDT tablet 30 TAKE ONE TABLET BY MOUTH EVERY DAY TAKE ONE TABLET BY MOUTH EVERY DAY SOLD: 02/16/2021 [facility] 10 mg 02/16/2021 12:00:00 AM EDT tablet 90 TAKE ONE TABLET BY MOUTH EVERY DAY TAKE ONE TABLET BY MOUTH EVERY DAY SOLD: 02/16/2021 [facility] atorvastatin 20 MG Oral Tablet ATORVASTATIN CALCIUM 02/16/2021 1 2:00:00 AM EDT tablet 90 TAKE ONE TABLET BY MOUTH EVERY D AY TAKE ONE TABLET BY MOUTH EVERY DAY SOLD: 02/16/2021 [facility] 10 mg 12/24/2020 12:00:00 AM EDT tablet 30 TAKE ONE TABLET BY MOUTH EVERY DAY TAKE ONE TABLET BY MOUTH EVERY DAY SOLD: 12/27/2020 [facility] 1,000 mg 09/11/2020 12:00:00 AM EDT tablet 60 TAKE ONE TABLET BY MOUTH TWO TIMES A DAY TAKE ONE TABLET BY MOUTH TWO TIMES A DAY SOLD: 09/11/2020 [facility] 1,000 mg 09/11/2020 12:00:00 AM EDT tablet 60 TAKE ONE TABLET BY MOUTH TWO TIMES A DAY TAKE ONE TABLET BY MOUTH TWO TIMES A DAY SOLD: 01/12/2021 [facility] 1,000 mg 09/11/2020 12:00:00 AM EDT tablet 60 TAKE ONE TABLET BY MOUTH TWO TIMES A DAY TAKE ONE TABLET BY MOUTH TWO TIMES A DAY SOLD: 11/26/2020 [facility] 1,000 mg 09/11/2020 12:00:00 AM EDT tablet 60 TAKE ONE TABLET BY MOUTH TWO TIMES A DAY TAKE ONE TABLET BY MOUTH TWO TIMES A DAY SOLD: 02/16/2021 [facility] 10 mg 09/11/2020 12:00:00 AM EDT tablet 30 TAKE ONE TABLET BY MOUTH ONCE DAILY TAKE ONE TABLET BY MOUTH ONCE DAILY SOLD: 09/11/2020 [facility] 10 mg 05/10/2020 12:00:00 AM EST tablet 30 TAKE ONE TABLET BY MOUTH ONCE DAILY TAKE ONE TABLET BY MOUTH ONCE DAILY SOLD: 05/10/2020 [facility] 10 mg 05/10/2020 12:00:00 AM EST tablet 30 TAKE ONE TABLET BY MOUTH ONCE DAILY TAKE ONE TABLET BY MOUTH ONCE DAILY SOLD: 11/26/2020 [facility] 10 mg 05/10/2020 12:00:00 AM EST tablet 30 TAKE ONE TABLET BY MOUTH ONCE DAILY TAKE ONE TABLET BY MOUTH ONCE DAILY SOLD: 07/05/2020 [facility] 10 mg 05/10/2020 12:00:00 AM EST tablet 30 TAKE ONE TABLET BY MOUTH ONCE DAILY TAKE ONE TABLET BY MOUTH ONCE DAILY SOLD: 09/24/2020 [facility] 10 mg 05/10/2020 12:00:00 AM EST tablet 30 TAKE ONE TABLET BY MOUTH ONCE DAILY TAKE ONE TABLET BY MOUTH ONCE DAILY SOLD: 10/25/2020 [facility] 10 mg 05/01/2020 12:00:00 AM EST tablet 90 TAKE ONE TABLET BY MOUTH EVERY DAY TAKE ONE TABLET BY MOUTH EVERY DAY SOLD: 05/02/2020 [facility] 1,000 mg 03/18/2020 12:00:00 AM EST tablet 60 TAKE ONE TABLET BY MOUTH TWICE A DAY TAKE ONE TABLET BY MOUTH TWICE A DAY SOLD: 04/22/2020 [facility] 1,000 mg 03/18/2020 12:00:00 AM EST tablet 60 TAKE ONE TABLET BY MOUTH TWICE A DAY TAKE ONE TABLET BY MOUTH TWICE A DAY SOLD: 08/05/2020 [facility] 1,000 mg 03/18/2020 12:00:00 AM EST tablet 60 TAKE ONE TABLET BY MOUTH TWICE A DAY TAKE ONE TABLET BY MOUTH TWICE A DAY SOLD: 03/23/2020 [facility] 1,000 mg 03/18/2020 12:00:00 AM EST tablet 60 TAKE ONE TABLET BY MOUTH TWICE A DAY TAKE ONE TABLET BY MOUTH TWICE A DAY SOLD: 05/29/2020 [facility] atorvastatin 20 MG Oral Tablet ATORVASTATIN CALCIUM 02/09/2020 1 2:00:00 AM EDT tablet 90 TAKE ONE TABLET BY MOUTH DAILY TAKE ONE T ABLET BY MOUTH DAILY SOLD: 02/12/2020 [facility] atorvastatin 20 MG Oral Tablet ATORVASTATIN CALCIUM 02/09/2020 1 2:00:00 AM EDT tablet 90 TAKE ONE TABLET BY MOUTH DAILY TAKE ONE T ABLET BY MOUTH DAILY SOLD: 05/10/2020 [facility] 10 mg 12/01/2019 12:00:00 AM EDT tablet 30 TAKE ONE TABLET BY MOUTH EVERY DAY TAKE ONE TABLET BY MOUTH EVERY DAY SOLD: 03/09/2020 [facility] 1,000 mg 09/01/2019 12:00:00 AM EDT tablet 60 TAKE ONE TABLET BY MOUTH TWO TIMES A DAY TAKE ONE TABLET BY MOUTH TWO TIMES A DAY SOLD: 02/20/2020 [facility] Insurance Providers Payer name Policy type / Coverage type Policy ID Covered constitution party ID Covered constitution party's relationship to carlin Policy Carlin Plan Information BS Neal-Jolon Mediparkin Part B [id number] Self Z [id number] [facility] [id number] Self Z [id number] Neal[employer]olon Medigap Part B [id number] Self Z [id number] [facility] [id number] Self Z [id number] Neal[employer]olon Medigap Part B [id number] Self Z [id number] Neal-Jolon Medigap Part B [id number] Self Z [id number] Neal[employer]Jolon Medigap Part B [id number] Self SELF PAY ONLY [id number] SP [id number] [facility] I [id number] Self [id number] SELF PAY ONLY [id number] SP [id number] [facility] I [id number] Self [id number] [facility] MEDICAID DUAL I [id number] Self [id number] Medicaid Medicaid [id number] S elf [id number] Medicaid Medicaid [id number] S elf [id number] [facility] Community Plan Medigap Part B [id number] Self [id number] [facility] Community Plan Medigap Part B [id number] Self 1 [id number] [facility] Community Plan Medigap Part B [id number] Self 1 [id number] [facility] Community Plan Commercial [id number] Self [id number] [facility] Community Plan Commercial [id number] Self [id number] [facility] Community Plan Commercial [id number] Self [facility] Community Plan Commercial [id number] Self SELF PAY ONLY SP [id number] [facility] COMMUNITY PLAN MCDO [id number] SP [id number] UN COMMUNITY PLAN MCDO [id number] SP [id number] SELF PAY ONLY [id number] SP [id number] SELF PAY ONLY UNAVAILABLE SP UNAV AILABLE ANSI-Not a Secondary Insurance [id number] ANSI-Medicaid [id number] ANSI-Medicaid [id number] ANSI-Not a Secondary Insurance [id number] ANSI-Not a Secondary Insurance [id number] ANSI-Medicaid [id number] [facility] Community Plan Medigap Part B [id number] Self 1 [id number] [facility] Community Plan Commercial [id number] Self [id number] [facility] Community Plan Commercial [id number] [id number] Self [id number] [facility] Community Plan Commercial [id number] Self [id number] [facility] O [id number] S [id number] [employer] COMMUNITY PLAN MCDHMO [id number] SP [id number] Community Plan - c Commercial [id number] Self [id number] [facility]-Community Plan-Jhonathan Medigap Part B [id number] Self [id number] [facility]-Community Plan-Jhonathan Medigap Part B [id number] Self [id number] [facility] Health Maintenance Organization (HMO) [id number] Self [id number] [employer] COMMUNITY PLAN MCDHMO [id number] SP [id number] [facility]-Community Plan-Jhonathan Medigap Part B [id number] Self 1 [id number] [facility] Health Maintenance Organization (HMO) [id number] Self [facility] O UNAVAILABLE [id number] S UNAVAILABLE SELF PAY UNAVAILABLE SP UNAVAILA BLE [facility]-Community Plan-Jhonathan Commercial [id number] Self [employer] [place] [id number] SP [id number] DAVID [id number] SP [id number] MEDICARE [id number] SP [id number] DAVID [id number] SP [id number] MEDICAID [id number] SP [id number] ANSI-Medicaid [id number] ANSI-Not a Secondary Insurance [id number] ANSI-Medicaid [id number] ANSI-Not a Secondary Insurance [id number] ANSI-Medicaid [id number] ANSI-Not a Secondary Insurance [id number] ANSI-Not a Secondary Insurance [id number] ANSI-Medicaid [id number] ANSI-Not a Secondary Insurance [id number] ANSI-Medicaid [id number] ANSI-Medicaid [id number] ANSI-Not a Secondary Insurance [id number] ANSI-Not a Secondary Insurance [id number] ANSI-Medicaid [id number] ANSI-Not a Secondary Insurance [id number] ANSI-Medicaid [id number] ANSI-Medicaid [id number] ANSI-Not a Secondary Insurance [id number] ANSI-Not a Secondary Insurance [id number] ANSI-Medicaid [id number] Problems, Conditions, and Diagnoses Code Display Name Description Problem Type Effective Dates Data Source(s) R91.1 [id number] Left lower lobe pulmonary nodule Problem 07/14/2020 12:00:00 AM EDT eCW1 ([facility]) Surgeries/Procedures No Information Results No Information Social History Code Duration Value Status Description Data Source(s ) Smoking 09/11/2020 12:00:00 AM EDT UNK completed eCW1 ([facility]) Smoking 09/11/2020 12:00:00 AM EDT UNK completed eCW1 ([facility]) Smoking 07/02/2020 12:00:00 AM EST UNK completed eCW1 ([facility]) Smoking 05/27/2020 12:00:00 AM EST UNK completed eCW1 ([facility]) Vital Signs ID Date Data Source UNK Name Value Range Interpretation Code Description Data Source(s) Body weight 174.4 [lb_av] 174.4 [lb_av] eCW1 ([facility]) Body height 70 [in_i] 70 [in_i] [facility] Body mass index (BMI) [Ratio] 25.02 kg/m2 25.02 kg/m2 eCW1 ([facility]) Heart rate 69 /min 69 /min eCW1 ([facility]) Respiratory rate 18 /min 18 /min eCW1 ([facility]) Body temperature 96.8 [degF] 96.8 [degF] eCW1 ( [facility]) Systolic blood pressure 140 mm[Hg] 140 mm[Hg] e CW1 ([facility]) Diastolic blood pressure 80 mm[Hg] 80 mm[Hg] eCW1 ([facility]) Body weight 173 [lb_av] 173 [lb_av] eCW1 ([facility]) Body height 70 [in_i] 70 [in_i] eCW[facility] Body mass index (BMI) [Ratio] 24.82 kg/m2 24.82 kg/m2 eCW1 ([facility]) Heart rate 89 /min 89 /min eCW1 ([facility]) Respiratory rate 18 /min 18 /min eCW1 ([facility]) Body temperature 98.5 [degF] 98.5 [degF] eCW1 ( [facility]) Systolic blood pressure 140 mm[Hg] 140 mm[Hg] e CW1 ([facility]) Diastolic blood pressure 86 mm[Hg] 86 mm[Hg] eCW1 ([facility])
[2021-04-06 13:37] LABS: ALBUMIN 3.9 GM/DL (3.2-5.2); ALT/SGPT 40 U/L (12-78); AMYLASE 55 U/L (25-115); BILIRUBIN,DIRECT 0.2 MG/DL (0.0-0.2); BILIRUBIN,TOTAL 0.5 MG/DL (0.2-1.0); BLOOD UREA NITROGEN 9 MG/DL (7-18); CALCIUM LEVEL 9.4 MG/DL (8.8-10.2); CARBON DIOXIDE LEVEL 19 MEQ/L (21-32); CHLORIDE LEVEL 99 MEQ/L (98-107); CREATININE FOR GFR 1.01 MG/DL (0.70-1.30); ETHYL ALCOHOL (ETHANOL) 0.233 % (0.000-0.010); GLOMERULAR FILTRATION RATE > 60.0 (>49); GLUCOSE, FASTING 123 MG/DL (70-100); MAGNESIUM LEVEL 1.8 MG/DL (1.8-2.4); POTASSIUM SERUM 4.1 MEQ/L (3.5-5.1); SODIUM LEVEL 134 MEQ/L (136-145); THYROID STIMULATING HORMONE 0.769 uIU/ML (0.358-3.740); TOTAL PROTEIN 7.6 GM/DL (6.4-8.2)
[2021-04-06 13:37] LABS: RSV AMPLIFICATION NEGATIVE (NEGATIVE)
[2021-04-06 13:50] LABS: AMPHETAMINES LEVEL URINE NEGATIVE (NEGATIVE); BARBITURATES URINE NEGATIVE (NEGATIVE); BENZODIAZEPINES URINE NEGATIVE (NEGATIVE); CANNABINOIDS URINE NEGATIVE (NEGATIVE); COCAINE METABOLITE URINE NEGATIVE (NEGATIVE); METHADONE URINE NEGATIVE (NEGATIVE); OPIATES URINE NEGATIVE (NEGATIVE); PHENCYCLIDINE URINE NEGATIVE (NEGATIVE)
--- NOTE | 2021-04-06 14:09 | REP ---
INDICATION: syncope. COMPARISON: August 09, 2016. TECHNIQUE: Helical scanning is acquired. 5 mm axial images were reformatted. Coronal MPR images were generated. FINDINGS: Bone window settings demonstrate an intact bony calvarium. There is no evidence of skull fracture or incidental bony calvarial lesion. The visualized paranasal sinuses appear clear. No intraorbital abnormality is seen. On soft tissue window setting images; the lateral, third, and fourth ventricles are normal in size and position. Oneill-white differentiation pattern is normal above and below the tentorium. There are is no evidence of intracranial hemorrhage. No mass, edema, infarction, or midline shift is seen. No extra-axial fluid collection is appreciated. There is mild vascular calcification in the distal internal carotid arteries. Mild generalized volume loss is seen seen unchanged. IMPRESSION: Generalized volume loss and vascular calcification. Findings unchanged from August 09, 2016. No acute intracranial abnormality. <Electronically signed by Maximus Colon > 04/06/21 1383
[2021-04-06] MEDS ORDERED: ACETAMINOPHEN TAB 650MG DOSE (2X325MG) PO PRN (15:15)
[2021-04-06] MEDS ORDERED: LORazepam 2 MG TAB PO PRN (15:15)
[2021-04-06] MEDS: NS 1,000 ML IV SCH (15:25)
--- OUTSIDE RECORDS SUMMARY | 2021-04-06 15:26 | CCD ---
Author Author [facility] Organization [facility] Address Unknown Phone Unavailable Support Name Relationship Address Phone BHAVNA PRESLEY Next Of Kin [address] [facility] [address] [place] [address] DISABLED Next Of Kin Unknown Unavailable MALIKA MO Next Of Kin [address] [place] [address] NANCY MIL[place] [address] RE Next Of Kin Unknown Unavailable LENCHO VALDEZ Next Of Kin [address] [facility] [address] [place] [address] [place] [address] UE Next Of Kin Unknown Unavailable UNEMPLOYED Next Of Kin - - -, - - [place] [address] LENCHO WHITEHEAD Next Of Kin [address] [place] [address] [place] [address] Lencho Whitehead [facility] [address] [place] [address] Unavailable Re-disclosure Warning The records that you [...] is protected by Article 27-F of the [facility] Public Health law. If you continue you may have access to information: Regarding HIV / AIDS; Provided by facilities licensed or operated by the [facility] Office of Mental Health; or Provided by the [facility] Office for People With Developmental Disabilities. If such information is present, then the following [facility] mandated warning applies: This information has [...] law may result in a fine or custodial sentence or both. A general authorization for the release of medical or other information is NOT sufficient authorization for further disc losure. Family History Family Member Name Family Member Gender Family Member Status Date o f Status Description Data Source(s) Unknown Female Problem [facility] ([facility]) Encounters Encounter Providers Location Date Indications Data Source(s ) Unknown [address] [facility] [address] [id number] 11/04/2020 12:00:00 AM EDT eCW1 ([facility]) Outpatient [address] [facility] [address] [address] 09/11/2020 12:00:00 AM EDT eCW1 ([facility]) Outpatient [address] [facility] [place] [address] 07/02/2020 12:00:00 AM EST eCW1 ([facility]) Unknown [address] [facility] [address] [address] 05/28/2020 12:00:00 AM EST eCW1 ([facility]) Unknown [address] [facility] [address] [id number] 05/08/2020 12:00:00 AM EST eCW1 ([facility]) Unknown [address] [facility] [address] [address] 02/07/2020 12:00:00 AM EDT eCW1 ([facility]) Immunizations Vaccine Date Status Description Data Source(s) COVID-19 VACCINE Moderna 08/12/2020 12:00:00 AM EDT completed [facility] Vaccine Series Complete: YESThis Data wa s Submitted to [facility] Via [facility]. COVID-19 VACC,MRNA(MODERNA)/PF 08/12/2020 12:00:00 AM EDT completed [facility] COVID-19 VACCINE Moderna 07/12/2020 12:00:00 AM EDT completed [facility] Vaccine Series Complete: NOThis Data was Submitted to [facility]. COVID-19 VACCINE, MRNA-1273, LNP-S (MODERNA)/PF 07/12/2020 1 [...] type / Coverage type Policy ID Covered green party ID Covered green party's relationship to carlin Policy Carlin Plan Information BS [facility] [employer] Part B [id number] Self Z [id number] [facility] [id number] Self Z [id number] [facility] Med[employer]ap Part B [id number] Self Z [id number] [facility] [id number] Self Z [id number] [facility] Med[employer] Part B [id number] Self Z [id number] BS [facility] Med[employer] Part B [id number] Self Z [id number] BS [facility] Medig[employer] Part B [id number] Self SELF PAY ONLY [id number] SP [id number] [facility] I [id number] Self [id number] SELF PAY ONLY [id number] SP [id number] [facility] I [id number] Self [id number] [facility] MEDICAID DUAL I [id number] Self [id number] Medicaid Medicaid [id number] S elf [id number] Medicaid Medicaid [id number] S elf [id number] [facility] Community Plan Medigap Part B [id number] Self 1 [id number] [facility] Community Plan Medigap Part B [id number] Self 1 [id number] [facility] Community Plan Medigap Part B [id number] Self 1 [id number] [facility] Community Plan Commercial [id number] Self [id number] [facility] Community Plan Commercial [id number] Self [id number] [facility] Community Plan Commercial [id number] Self [facility] Community Plan Commercial [id number] Self SELF PAY ONLY SP [id number] [facility] COMMUNITY PLAN MCDO [id number] SP [id number] UN COMMUNITY PLAN MCDO [id number] SP [id number] SELF PAY ONLY [id number] SP [id number] SELF PAY ONLY UNAVAILABLE SP UNAV AILABLE ANSI-Not a Secondary Insurance [id number] ANSI-Medicaid [id number] ANSI-Medicaid [id number] ANSI-Not a Secondary Insurance [id number] ANSI-Not a Secondary Insurance [id number] ANSI-Medicaid [id number] [facility] Community Plan Medigap Part B [id number] Self 1 [id number] [facility] Community Plan Commercial [id number] Self [id number] [facility] Community Plan Commercial [id number] Self [id number] [facility] Community Plan Commercial [id number] Self [id number] [facility] O [id number] S [id number] [employer] COMMUNITY PLAN MCDHMO [id number] SP [id number] Community Plan - c Commercial [id number] Self [id number] [facility]-Community Plan-[facility] Medigap Part B [id number] Self 1 [id number] [facility] Medigap Part B [id number] Self 1 [id number] [facility] Health Maintenance Organization (HMO) [id number] Self [id number] [employer] COMMUNITY PLAN MCDHMO [id number] SP [id number] [facility] Plan[facility] Medigap Part B [id number] Self 1 [id number] [facility] Health Maintenance Organization (HMO) [id number] Self [facility] O UNAVAILABLE [id number] S UNAVAILABLE SELF PAY UNAVAILABLE SP UNAVAILA BLE [facility]-Community Plan-[facility] Commercial [id number] Self [employer] [place] [id number] SP [id number] DAVID [id number] SP [id number] MEDICARE [id number] SP [id number] DAVID [id number] SP [id number] MEDICAID [id number] SP [id number] ANSI-Medicaid [id number] ANSI-Not a Secondary Insurance [id number] ANSI-Medicaid [id number] ANSI-Not a Secondary Insurance [id number] ANSI-Medicaid [id number] ANSI-Not a Secondary Insurance [id number] ANSI-Not a Secondary Insurance [id number] ANSI-Medicaid [id number] ANSI-Not a Secondary Insurance [id number] ANSI-Medicaid [id number] ANSI-Medicaid [id number] ANSI-Not a Secondary Insurance [id number] ANSI-Not a Secondary Insurance [id number] ANSI-Medicaid [id number] ANSI-Not a Secondary Insurance [id number] ANSI-Medicaid [id number] ANSI-Medicaid [id number] ANSI-Not a Secondary Insurance [id number] ANSI-Not a Secondary Insurance [id number] ANSI-Medicaid [id number] Problems, Conditions, and Diagnoses Code Display Name Description Problem Type Effective Dates Data Source(s) R91.1 [id number] Left lower lobe pulmonary nodule Problem 07/14/2020 12:00:00 AM EDT eCW1 ([facility]) Surgeries/Procedures No Information Results No Information Social History Code Duration Value Status Description Data Source(s ) Smoking 09/11/2020 12:00:00 AM EDT UNK completed eCW1 ([facility]) Smoking 09/11/2020 12:00:00 AM EDT UNK completed eCW1 ([facility]) Smoking 07/02/2020 12:00:00 AM EST UNK completed eCW1 ([facility]) Smoking 05/27/2020 12:00:00 AM EST UNK completed eCW1 ([facility]) Vital Signs ID Date Data Source UNK Name Value Range Interpretation Code Description Data Source(s) Body weight 174.4 [lb_av] 174.4 [lb_av] eCW1 ([facility]) Body height 70 [in_i] 70 [in_i] eCW1 ([facility]) Body mass index (BMI) [Ratio] 25.02 kg/m2 25.02 kg/m2 eCW1 ([facility]) Heart rate 69 /min 69 /min eCW1 ([facility]) Respiratory rate 18 /min 18 /min eCW1 ([facility] Body temperature 96.8 [degF] 96.8 [degF] eCW1 ( [facility]) Systolic blood pressure 140 mm[Hg] 140 mm[Hg] e CW1 ([facility]) Diastolic blood pressure 80 mm[Hg] 80 mm[Hg] eCW1 ([facility]) Body weight 173 [lb_av] 173 [lb_av] eCW1 ([facility]) Body height 70 [in_i] 70 [in_i] eCW1 ([facility]) Body mass index (BMI) [Ratio] 24.82 kg/m2 24.82 kg/m2 eCW1 ([facility]) Heart rate 89 /min 89 /min eCW1 ([facility]) Respiratory rate 18 /min 18 /min eCW1 ([facility]) Body temperature 98.5 [degF] 98.5 [degF] eCW1 ( [facility]) Systolic blood pressure 140 mm[Hg] 140 mm[Hg] e CW1 ([facility]) Diastolic blood pressure 86 mm[Hg] 86 mm[Hg] eCW1 ([facility])
[2021-04-06] MEDS ORDERED: ATOR1TAB21 PO (15:29)
[2021-04-06] MEDS ORDERED: PROP10TA56 PO (15:29)
[2021-04-06] MEDS ORDERED: LISI10TA22 PO (15:29)
[2021-04-06] MEDS ORDERED: D31000TA2 PO (15:30)
[2021-04-06] MEDS ORDERED: HOME MED LIST COMPLETE! XX SCH (15:30)
[2021-04-06] MEDS ORDERED: THIAMINE 100 MG TAB PO ONE (15:50)
--- NOTE | 2021-04-06 16:14 | HPEPDOC ---
[facility] Medical History & Physical Date of Admission Apr 06, 2021 Date of Service: Apr 06, 2021 Attending Physician: MATT YUEN MD History and Physical CHIEF COMPLAINT: syncope/seizure and collapse while in [facility] HISTORY OF PRESENT ILLNESS: 65-year-old gentleman with a history of history of alcohol abuse and seizure disorder and hypomagnesemia who was brought in by EMS after suspected seizure/syncope in the [employer] pew while in [facility] with LOC and had some lethargy after. On arrival to the ED, he reported significant alcohol consumption last night, but otherwise no recent illness without a recent history of fever, chills, nausea, emesis, chest pain, shortness of breath, palpitations, abdominal pain, dizziness. He reports that he felt dizzy this morning as he got ready for [facility], but he called for a cab and went anyway. 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 He does not believe that he seized as this felt different from his seizures. In the ED, he was hypotensive to lowest 77/50, and otherwise afebrile and breathing comfortably on room air. Work up was notable for elevated alcohol level of 0.233, lactic acidosis to 6.7, head CT that showed no acute intracranial pathology without bleeding, fracture, mass or infarction, CXR that showed cardiopulmonary pathology, WBC 6.6, Hgb 13.8, platelets 257, na 134, K 4.1, BUN 9, Cr 1.01 and respiratory panel was negative. He was given 30cc/kg/hr NS fluids with good response and he received empiric ceftriaxone. UA was bland. He is now being admitted for likely syncope 2/2/ symptomatic hypotension i/s/o dehydration i/s/o excessive alcohol consumption and unlikely seizure, with c/f for impending alcohol withdrawal. REVIEW OF SYSTEMS: 10 point ROS was negative except as noted above. PAST MEDICAL HISTORY: 1. Seizure disorder. 2. Alcohol abuse. 3. Vitamin B12 deficiency. PAST SURGICAL HISTORY: Bilateral knee surgery. MEDICATIONS: - aspirin 81 mg daily - vitamin D1000 units daily - Keppra 1000 mg twice daily - Mag ox 400 mg BID ALLERGIES: No known drug allergies. SOCIAL HISTORY: Daily alcohol consumption, last use last night. Non-smoker. Chews tobacco No illicit drug use FAMILY HISTORY: His sister of bone cancer. PHYSICAL EXAMINATION: VITAL SIGNS: see below GENERAL: NAD HEENT: NCAT, EOMI, MMM NECK: Supple CARDIOVASCULAR: Regular rate and rhythm, no murmurs, rubs, gallops. LUNGS: Clear to auscultation bilaterally, no wheezing, rhonchi or crackles ABDOMEN: Normoactive bowel sounds, soft, NTND EXTREMITIES: No clubbing, cyanosis or edema. WWP NEUROLOGY: Awake, alert and oriented x 3. Moves all extremities equally. CN 3- 12 intact PSYCHIATRIC: Aox3 SKIN: Intact. ASSESSMENT: 65-year-old gentleman with a history of history of alcohol abuse and seizure disorder and hypomagnesemia who was brought in by EMS after suspected seizure but more likely syncope in the [facility] pe[place] while in [facility] with LOC and had some lethargy after, now being admitted for likely syncope 2/2/ symptomatic hypotension i/s/o dehydration i/s/o excessive alcohol consumption and unlikely seizure (he even reports himself that this did not feel like his seizures that he is very familiar with), with c/f for impending alcohol withdrawal. PLAN: Syncope and collapse vs. unlikely seizure: i/s/o symptomatic hypotension: -Dehydrated, with recent excessive alcohol consumption with elevated alcohol levels -s/p 2.17L bolus NS with improvement in BP, will continue NS at 100cc/hr -check prolactin -CT head was without acute pathology -Low suspicion for infection with no leukocytosis, bland UA, CXR clear -continue home Keppra 1g BID -telemetry -orthostatic vital signs Lactic acidosis: suspect it is due hypotension i/s/o profound dehydration i/s/o excessive alcohol consumption -Dehydrated, with recent excessive alcohol consumption with elevated alcohol levels -s/p 2.17L bolus NS with improvement in BP, will continue NS at 100cc/hr -Low suspicion for infection with no leukocytosis, bland UA, CXR clear, negative respiratory panel. No antibiotic therapy at this time -recheck lactate in 4h Seizure disorder: -continue home keppra 1g BID Alcohol use disorder with recent excessive use, with c/f for impending alcohol withdrawal: -CIWA protocol with symptom triggered PRN PO ativan -Thiamine, folate -NS at 100cc/hr DVT ppx: lovenox SC Vital Signs Vital Signs Date Time Temp Pulse Resp B/P (MAP) Pulse Ox O2 Delivery O2 Flow Rate FiO2 04/06/21 12:31 95 96/67 (77) 04/06/21 12:16 95 04/06/21 12:13 96.5 16 04/06/21 12:11 Room Air Laboratory Data Labs 24H Laboratory Tests 2 04/06/21 12:34: Immature Granulocyte % (Auto) 0.5, Neutrophils (%) (Auto) 72.0H, Lymphocytes (%) (Auto) 20.0L, Monocytes (%) (Auto) 5.6, Eosinophils (%) (Auto) 0.8, Basophils (%) (Auto) 1.1H, Neutrophils # (Auto) 4.7, Lymphocytes # (Auto) 1.3L, Monocytes # (Auto) 0.4, Eosinophils # (Auto) 0.1, Basophils # (Auto) 0.1, Nucleated Red Blood Cells % (auto) 0.0, Prothrombin Time 12.6, Prothromb Time International Ratio 0.90, Activated Partial Thromboplast Time 23.6L, Anion Gap 16, Glomerular Filtration Rate > 60.0, Lactic Acid Level 6.7*H, Calcium Level 9.4, Magnesium Level 1.8, Total Bilirubin 0.5, Direct Bilirubin 0.2, Aspartate Amino Transf (AST/SGOT) 52H, Alanine Aminotransferase (ALT/SGPT) 40, Alkaline Phosphatase 95, C-Reactive Protein, Quantitative 0.30, Total Protein 7.6, Albumin 3.9, Albumin/Globulin Ratio 1.1, Amylase Level 55, Thyroid Stimulating Hormone (TSH) 0.769, Urine Opiates Screen NEGATIVE, Urine Methadone Screen NEGATIVE, Urine Barbiturates Screen NEGATIVE, Urine Phencyclidine Screen NEGATIVE, Urine Amphetamines Screen NEGATIVE, Urine Benzodiazepines Screen NEGATIVE, Urine Cocaine Metabolite Screen NEGATIVE, Urine Cannabinoids Screen NEGATIVE, Ethyl Alcohol Level 0.233H 04/06/21 12:48: Coronavirus (COVID-19)(PCR) NEGATIVE, Influenza Type A (RT-PCR) NEGATIVE, Influenza Type B (RT-PCR) NEGATIVE, Respiratory Syncytial Virus (PCR) NEGATIVE 04/06/21 13:46: Urine Color YELLOW, Urine Appearance HAZY, Urine pH 5.0, Urine Specific [place] 1.017, Urine Protein 1+H, Urine Glucose (UA) NEGATIVE, Urine Ketones TRACEH, Urine Blood NEGATIVE, Urine Nitrite NEGATIVE, Urine Bilirubin NEGATIVE, Urine Urobilinogen 2.0H, Urine Leukocyte Esterase NEGATIVE, Urine WBC (Auto) 0, Urine RBC (Auto) 0, Urine Hyaline Casts (Auto) 29, Urine Bacteria (Auto) NEGATIVE, Urine Squamous Epithelial Cells 0, Urine Amorphous Sediment SMALLH, Urine Granular Casts (Auto) 4, Urine Mucus (Auto) SMALL, Urine Sperm (Auto) CBC/BMP Laboratory Tests 04/06/21 12:34 Microbiology Microbiology 04/06/21 Blood Culture, Received Pending 04/06/21 Blood Culture, Received Pending Home Medications Scheduled Aspirin (Aspirin EC) 81 Mg Tab, 81 MG PO DAILY Atorvastatin Calcium (Atorvastatin Calcium) 20 Mg Tablet, 20 MG PO DAILY Cholecalciferol (Vitamin D3) (Vitamin D3) 1,000 Unit Tablet, 1,000 UNITS PO DAILY Levetiracetam (Keppra) 1,000 Mg Tab, 1,000 MG PO BID Lisinopril (Lisinopril) 10 Mg Tablet, 10 MG PO DAILY Propranolol HCl (Propranolol HCl) 10 Mg Tablet, 10 MG PO DAILY Allergies Coded Allergies: No Known Allergies (Unverified , 04/06/21) A-FIB/CHADSVASC A-FIB History Current/History of A-Fib/PAF?: No Current PO Anticoag Therapy: No Age/Risk Factor Scoring CHADSVASC: CHADSVASC Response (Comments) Value Age Risk Factor Age 65-74 years old 1 Gender Risk Factor Male 0 Hx of CHF No 0 Hx of HTN No 0 Hx of Stroke/TIA/or VTE No 0 Hx of Diabetes No 0 Hx of Vascular Disease No 0 Total 1 Treatment Treatment ordered: NONE Reason Anticoagulant not given: Not indicated/[id number] MATT YUEN MD Apr 06, 2021 15:47
[2021-04-06] MEDS ORDERED: levETIRAcetam 250MG TABLET (KEPPRA) PO SCH (16:15)
[2021-04-06] MEDS ORDERED: levETIRAcetam 250MG TABLET (KEPPRA) PO ONE (16:20)
[2021-04-06] MEDS ORDERED: ENOXAPARIN 40MG/0.4ML SYRINGE (J1650 PER 10MG) SC SCH (21:00)
--- NOTE | 2021-04-06 21:12 | ECGEPIP ---
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
[2021-04-06] MEDS: levETIRAcetam 250MG TABLET (KEPPRA) PO SCH (21:51)
[2021-04-06] MEDS: MAGNESIUM OXIDE 400MG TAB (MAG-OX) PO SCH (21:51)
[2021-04-06] MEDS: THIAMINE 100 MG TAB PO SCH (21:51)
[2021-04-07] MEDS: NS 1,000 ML IV SCH (00:32)
[2021-04-07 06:00] LABS: HEMATOCRIT 38.1 % (42.0-52.0); HEMOGLOBIN 12.9 g/dl (13.5-17.5); MEAN CORPUSCULAR HEMOGLOBIN 31.2 pg (27.0-33.0); MEAN CORPUSCULAR HGB CONC 33.9 g/dl (32.0-36.5); PLATELET COUNT, AUTOMATED 195 10^3/uL (150-450); RED BLOOD COUNT 4.14 10^6/uL (4.30-6.10); WHITE BLOOD COUNT 9.9 10^3/uL (4.0-10.0)
[2021-04-07 06:12] LABS: BLOOD UREA NITROGEN 8 MG/DL (7-18); CALCIUM LEVEL 8.5 MG/DL (8.8-10.2); CARBON DIOXIDE LEVEL 22 MEQ/L (21-32); CHLORIDE LEVEL 106 MEQ/L (98-107); CREATININE FOR GFR 0.66 MG/DL (0.70-1.30); GLOMERULAR FILTRATION RATE > 60.0 (>49); GLUCOSE, FASTING 72 MG/DL (70-100); MAGNESIUM LEVEL 1.8 MG/DL (1.8-2.4); POTASSIUM SERUM 4.3 MEQ/L (3.5-5.1); SODIUM LEVEL 137 MEQ/L (136-145)
[2021-04-07] MEDS ORDERED: PREVNAR 13 VACCINE SYRINGE IM ONE (09:00)
[2021-04-07] MEDS: FOLIC ACID 1 MG TAB PO SCH (09:17)
[2021-04-07] MEDS: MULTIVITAMINS/MINERALS THERAP 1 TAB PO SCH (09:17)
[2021-04-07] MEDS: MAGNESIUM OXIDE 400MG TAB (MAG-OX) PO SCH (09:17)
[2021-04-07] MEDS: ASPIRIN 81 MG CHEW TABLET PO SCH (09:17)
[2021-04-07] MEDS: THIAMINE 100 MG TAB PO SCH (09:17)
[2021-04-07] MEDS: VITAMIN D 1,000 INTERNATIONAL UNITS TABLET PO SCH (09:18)
[2021-04-07] MEDS: levETIRAcetam 250MG TABLET (KEPPRA) PO SCH (09:18)
--- NOTE | 2021-04-07 13:03 | IPNPDOC ---
Text Note Date of Service The patient was seen on 04/07/21. NOTE SUBJECTIVE: -No acute events, has an essential tremor. Otherwise feels well without complaints OBJECTIVE: VITAL SIGNS: see below GENERAL: NAD HEENT: NCAT, EOMI, MMM NECK: Supple CARDIOVASCULAR: Regular rate and rhythm, no murmurs, rubs, gallops. LUNGS: Clear to auscultation bilaterally, no wheezing, rhonchi or crackles ABDOMEN: Normoactive bowel sounds, soft, NTND EXTREMITIES: No clubbing, cyanosis or edema. WWP NEUROLOGY: Awake, alert and oriented x 3. Moves all extremities equally. CN 3- 12 intact. Tremulous PSYCHIATRIC: Aox3 SKIN: Intact. ASSESSMENT: 65-year-old gentleman with a history of history of alcohol abuse and seizure disorder and chronic hypomagnesemia who was brought in by EMS after suspected seizure but more likely syncope vs. fell asleep? in the [employer] pew while in [facility] with some lethargy after, now admitted for symptomatic hypotension i/s/o dehydration i/s/o excessive alcohol consumption and unlikely seizure (he even reports himself that this did not feel like his seizures that he is very familiar with), with c/f for impending alcohol withdrawal. PLAN: Symptomatic hypotension: -Dehydrated, with recent excessive alcohol consumption with elevated alcohol levels 16+ after reported last use? -s/p IVF with resolution of hypotension -CT head was without acute pathology -Low suspicion for infection with no leukocytosis, bland UA, CXR clear -continue home Keppra 1g BID -telemetry thus far without concerning dysrhythmias or heart block Lactic acidosis: suspect it is due hypotension i/s/o profound dehydration i/s/o excessive alcohol consumption, improved with hydration -Dehydrated, with recent excessive alcohol consumption with elevated alcohol levels -s/p IVF -Low suspicion for infection with no leukocytosis, bland UA, CXR clear, negative respiratory panel. No antibiotic therapy at this time Seizure disorder: -continue home keppra 1g BID Alcohol use disorder with recent excessive use, with c/f for impending alcohol withdrawal: -CIWA protocol with symptom triggered PRN PO ativan -Thiamine, folate -no withdrawal at this time DVT ppx: lovenox SC Dispo: Home with PCP follow up within 7d VS,Fishbone, I+O VS, Fishbone, I+O Laboratory Tests 04/06/21 12:34 04/07/21 05:37 Vital Signs Date Time Temp Pulse Resp B/P (MAP) Pulse Ox O2 Delivery O2 Flow Rate FiO2 04/07/21 06:11 98.2 70 18 148/85 (106) 95 Room Air I&O- Last 24 Hours up to 6 AM 04/07/21 05:59 Intake Total 3484 ml Output Total 500 ml Balance 2984 ml MATT YUEN MD Apr 07, 2021 08:18
[2021-04-07 13:15] VITALS: BP 152/94
--- NOTE | 2021-04-07 13:29 | DS.PDOC ---
Discharge Summary General Date of Admission Apr 06, 2021 at 15:13 Date of Discharge 04/07/2021 Attending Physician: MATT YUEN MD Discharge Summary PROCEDURES PERFORMED DURING STAY: None ADMITTING DIAGNOSES: Syncope DISCHARGE DIAGNOSES: Symptomatic hypotension i/s/o recent excessive alcohol consumption and dehydration Seizure disorder. Alcohol abuse w/ recent excessive consumption, without evidence of withdrawal Appears to have an essential tremor Chronic hypomagnesemia COMPLICATIONS/CHIEF COMPLAINT: Syncope Episode. HISTORY OF PRESENT ILLNESS: 65-year-old gentleman with a history of alcohol abuse and seizure disorder and hypomagnesemia who was brought in by EMS after suspected seizure/syncope in the [facility] while in [facility] with suspected LOC and had some lethargy after. On arrival to the ED, he reported significant alcohol consumption the night prior, but otherwise no recent illness without a recent history of fever, chills, nausea, emesis, chest pain, shortness of breath, palpitations, abdominal pain, dizziness. He reported that he felt dizzy that morning as he got ready for [facility], but he called for a cab and went anyway. 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 He does not believe that he seized as this felt different from his seizures and he did not believe he syncopized even though it may have seemed that way by way of falling asleep in [facility]. HOSPITAL COURSE: In the ED, he was hypotensive to lowest 77/50, and otherwise afebrile and breathing comfortably on room air. Work up was notable for elevated alcohol level of 0.233, lactic acidosis to 6.7, head CT that showed no acute intracranial pathology without bleeding, fracture, mass or infarction, CXR that showed cardiopulmonary pathology, WBC 6.6, Hgb 13.8, platelets 257, na 134, K 4.1, BUN 9, Cr 1.01 and respiratory panel was negative. He was given 30cc/kg/hr NS fluids with good response and he received empiric ceftriaxone. UA was bland. He was admitted for symptomatic hypotension i/s/o dehydration i/s/o excessive alcohol consumption and unlikely seizure, with c/f for impending alcohol withdrawal. He was hydrated and by day 2 AM he felt back to baseline, was noted to have a sustained essential tremor without any alcohol withdrawal. He reported that he has had the tremor for a long time now and I recommended that he follows up with his his PCP on this matter and supportive medications for alcohol cessation as he expressed that he would like further discussion. He is now being discharged home. DISCHARGE MEDICATIONS: Please see below. ALLERGIES: Please see below. PHYSICAL EXAMINATION ON DISCHARGE: VITAL SIGNS: Please see below. GENERAL: NAD HEENT: NCAT, EOMI, MMM NECK: Supple CARDIOVASCULAR: Regular rate and rhythm, no murmurs, rubs, gallops. LUNGS: Clear to auscultation bilaterally, no wheezing, rhonchi or crackles ABDOMEN: Normoactive bowel sounds, soft, NTND EXTREMITIES: No clubbing, cyanosis or edema. [facility] NEUROLOGY: Awake, alert and oriented x 3. Moves all extremities equally. CN 3- 12 intact. has an essential tremor that is mild at rest and worsens with intentional activity. PSYCHIATRIC: Aox3 SKIN: Intact. LABORATORY DATA: Please see below. IMAGING: CT head: Bone window settings demonstrate an intact bony calvarium. There is no evidence of skull fracture or incidental bony calvarial lesion. The visualized paranasal sinuses appear clear. No intraorbital abnormality is seen. On soft tissue window setting images; the lateral, third, and fourth ventricles are normal in size and position. Oneill-white differentiation pattern is normal above and below the tentorium. There are is no evidence of intracranial hemorrhage. No mass, edema, infarction, or midline shift is seen. No extra-axial fluid collection is appreciated. There is mild vascular calcification in the distal internal carotid arteries. Mild generalized volume loss is seen seen unchanged. IMPRESSION: Generalized volume loss and vascular calcification. Findings unchanged from August 09, 2016. No acute intracranial abnormality. CXR: The lungs are well inflated and free of infiltrate. Pleural angles are sharp. Heart size is normal. Pulmonary vasculature is not increased. There are old healed rib fractures on the right. A loop recorder is seen projecting to the left of midline. IMPRESSION: No active disease. PROGNOSIS: Good ACTIVITY: As tolerated DIET: regular DISCHARGE PLAN: Home with close PCP followup within 7d DISPOSITION: Home DISCHARGE INSTRUCTIONS: Home with close PCP followup within 7d. Recommended abstinence from alcohol and staying hydrated, and also to discuss alcohol cessation meds with PCP. ITEMS TO FOLLOWUP ON ON OUTPATIENT: Alcohol cessation DISCHARGE CONDITION: Stable TIME SPENT ON DISCHARGE: 40 minutes. Vital Signs/I&Os Vital Signs Date Time Temp Pulse Resp B/P (MAP) Pulse Ox O2 Delivery O2 Flow Rate FiO2 04/07/21 11:30 73 93 04/07/21 11:00 99.5 18 138/82 (100) 04/07/21 06:11 Room Air I&O- Last 24 Hours up to 6 AM 04/07/21 05:59 Intake Total 3484 ml Output Total 500 ml Balance 2984 ml Laboratory Data Labs 24H Laboratory Tests 2 04/06/21 13:46: Urine Color YELLOW, Urine Appearance HAZY, Urine pH 5.0, Urine Specific Pinnacle 1.017, Urine Protein 1+H, Urine Glucose (UA) NEGATIVE, Urine Ketones TRACEH, Urine Blood NEGATIVE, Urine Nitrite NEGATIVE, Urine Bilirubin NEGATIVE, Urine Urobilinogen 2.0H, Urine Leukocyte Esterase NEGATIVE, Urine WBC (Auto) 0, Urine RBC (Auto) 0, Urine Hyaline Casts (Auto) 29, Urine Bacteria (Auto) NEGATIVE, Urine Squamous Epithelial Cells 0, Urine Amorphous Sediment SMALLH, Urine Granular Casts (Auto) 4, Urine Mucus (Auto) SMALL, Urine Sperm (Auto) 04/06/21 17:17: Lactic Acid Followup at 4 Hours 3.8*H 04/07/21 05:37: Nucleated Red Blood Cells % (auto) 0.0, Anion Gap 9, Glomerular Filtration Rate > 60.0, Calcium Level 8.5L, Magnesium Level 1.8 CBC/BMP Laboratory Tests 04/07/21 05:37 Microbiology Microbiology 04/06/21 Blood Culture - Preliminary, Resulted No growth after 24 hours . All specim... 04/06/21 Blood Culture - Preliminary, Resulted No growth after 24 hours . All specim... Discharge Medications Scheduled Aspirin (Aspirin EC) 81 Mg Tab, 81 MG PO DAILY, (Reported) Atorvastatin Calcium (Atorvastatin Calcium) 20 Mg Tablet, 20 MG PO DAILY, (Reported) Cholecalciferol (Vitamin D3) (Vitamin D3) 1,000 Unit Tablet, 1,000 UNITS PO DAILY, (Reported) Levetiracetam (Keppra) 1,000 Mg Tab, 1,000 MG PO BID, (Reported) Lisinopril (Lisinopril) 10 Mg Tablet, 10 MG PO DAILY, (Reported) Propranolol HCl (Propranolol HCl) 10 Mg Tablet, 10 MG PO DAILY, (Reported) Allergies Coded Allergies: No Known Allergies (Unverified , 04/06/21) MATT YUEN MD Apr 07, 2021 13:29
== END 2021-04-07 14:10 | disposition home or self-care (01) ==
LOC: M ED 12:01 → EDBD 12:01 → M ED INP 15:13
PROVIDERS: ADMIT Internal Medicine; ATTEND Internal Medicine
DX: I95.9 Hypotension, unspecified (principal); E86.0 Dehydration; F10.120 Alcohol abuse with intoxication, uncomplicated; G43.909 Migraine, unspecified, not intractable, without status migrainosus; G25.0 Essential tremor; E83.42 Hypomagnesemia; R74.02 Elevation of levels of lactic acid dehydrogenase [LDH]; E53.8 Deficiency of other specified B group vitamins; I10 Essential (primary) hypertension; R91.8 Other nonspecific abnormal finding of lung field; Z79.899 Other long term (current) drug therapy; Z79.82 Long term (current) use of aspirin; F17.220 Nicotine dependence, chewing tobacco, uncomplicated
CPT/HCPCS: 36415; 70450; 71045; 80048; 80076; 80180; 80307; 81001; 82077; 82150; 83605; 83735; 84146; 84443; 85025; 85027; 85610; 85730; 86140; 87040; 87631; 93005; 93041; 94760; 96361; 96365; 96372; 99285; G0378; J0696; J1650

== ENCOUNTER → 2022-04-29 | Outpatient (CLI) | payer MEDICARE ==
[~2022-04-29] MED LIST changes: +ACET-897 PO; +ATOR1TAB21 PO; +LISI10TA22 PO; +PROP10TA56 PO; +VITA100093 PO
[2022-04-29 15:05] LABS: HEMATOCRIT 40.8 % (42.0-52.0); HEMOGLOBIN 13.6 g/dl (13.5-17.5); MEAN CORPUSCULAR HEMOGLOBIN 31.5 pg (27.0-33.0); MEAN CORPUSCULAR HGB CONC 33.3 g/dl (32.0-36.5); MEAN CORPUSCULAR VOLUME 94.4 fl (80.0-96.0); PLATELET COUNT, AUTOMATED 328 10^3/uL (150-450); RED BLOOD COUNT 4.32 10^6/uL (4.30-6.10); WHITE BLOOD COUNT 10.2 10^3/uL (4.0-10.0)
[2022-04-29 15:27] LABS: APPEARANCE, URINE MANUAL CLEAR (CLEAR); COLOR, URINE MANUAL LT YELLOW (YELLOW); SPECIFIC GRAVITY,URINE MANUAL 1.015 (1.002-1.035)
[2022-04-29 15:28] LABS: BILIRUBIN, URINE MANUAL NEGATIVE (NEGATIVE); BLOOD URINE MANUAL NEGATIVE (NEGATIVE); GLUCOSE, URINE (UA) MANUAL NEGATIVE (NEGATIVE); KETONE, URINE MANUAL NEGATIVE (NEGATIVE); LEUKOCYTE ESTERASE, URINE MAN NEGATIVE (NEGATIVE); NITRITE, URINE MANUAL NEGATIVE (NEGATIVE); PROTEIN, URINE MANUAL NEGATIVE (NEGATIVE); UROBILINOGEN, URINE MANUAL NORMAL (NORMAL)
[2022-04-29 15:32] LABS: ALBUMIN 3.9 G/DL (3.2-5.2); ALKALINE PHOSPHATASE 83 U/L (46-116); ALT/SGPT 36 U/L (7.0-40); AST/SGOT 36 U/L (<34); BILIRUBIN,TOTAL 0.6 MG/DL (0.3-1.2); BLOOD UREA NITROGEN 9 MG/DL (9-23); CALCIUM LEVEL 9.6 MG/DL (8.3-10.6); CARBON DIOXIDE LEVEL 23 MMOL/L (20-31); CHLORIDE LEVEL 97 MMOL/L (98-107); CHOLESTEROL LEVEL 165 MG/DL (<200); CHOLESTEROL RISK RATIO 2.06 (<5); CREATININE FOR GFR 0.77 MG/DL (0.70-1.30); GLOMERULAR FILTRATION RATE > 60.0 (>49); GLUCOSE, FASTING 73 MG/DL (74-106); HDL CHOLESTEROL 79.8 MG/DL (>40); LDL CHOLESTEROL 69.2 MG/DL (<100); NON-HDL-C 85 MG/DL; POTASSIUM SERUM 4.6 MMOL/L (3.5-5.1); SODIUM LEVEL 135 MMOL/L (136-145); TOTAL PROTEIN 7.4 G/DL (5.7-8.2); TRIGLYCERIDES LEVEL 80 MG/DL (<150)
== END ==
LOC: M PLAIMG 11:28
PROVIDERS: ATTEND Student in an Organized Health Care Education/Training Program
DX: R29.6 Repeated falls (principal)

== ENCOUNTER → 2022-06-15 | Outpatient (CLI) | payer MEDICARE | LOC: M LABSMTC 08:36 | PROVIDERS: ATTEND Anesthesiology | DX: Z01.818 Encounter for other preprocedural examination (principal) ==

== ENCOUNTER → 2023-04-01 | Day surgery (SDC) | payer MEDICARE ==
[~2023-04-01] VITALS: Ht 177.8 cm; Wt 75.0 kg
[~2023-04-01] MED LIST changes: +ACETYLCHOLINE OPHTH SOLN 1% 2ML (MIOCHOL-E) As Ordered ONE; +BSS IRRIG/VANCO(10MG)/TOBRA(5MG)/EPINEPH(1:1000-0.5CC)500ML BAG-ORONLY IR ONE; +CEFUROXIME 1MG/0.1ML INTRACAMERAL INJ As Ordered ONE; +CYCLOPENTOLATE 1% OPHTH SOLN 2ML BTL OD SCH; +DUOVISC (0.50ML VISCOAT/0.85ML PROVISC) OPHTH KIT As Ordered ONE; +LIDOCAINE 1% SDV 5ML VIAL As Ordered ONE; +LIDOCAINE 3.5 % 1ML OPHTH TOPICAL GEL OU ONE; +MIDAZOLAM INJ 2MG/2ML VIAL As Ordered ONE; +OFLOXACIN 0.3 % (OCUFLOX) OPTH SOL 5ML OD ONE; +PHENYLEPHRINE 10% OPHTH SOL 5ML OD PRN; +PHENYLEPHRINE 2.5% OPHTH SOL 2ML OD SCH; +TROPICAMIDE 1% OPHTH SOLN 15ML OD SCH; +TRYPAN BLUE 0.06 % 2.25 ML OPHTH SYR (VISIONBLUE) As Ordered ONE; +fentaNYL 100 MCG/2 ML INJECTION As Ordered ONE
[2023-04-01 08:20] VITALS: BP 168/90; TEMP 98; O2SAT 96
== END | disposition home or self-care (01) ==
LOC: M SDC 05:55
PROVIDERS: ATTEND Ophthalmology
DX: H25.11 Age-related nuclear cataract, right eye (principal); I25.10 Atherosclerotic heart disease of native coronary artery without angina pectoris; I10 Essential (primary) hypertension; G40.109 Localization-related (focal) (partial) symptomatic epilepsy and epileptic syndromes with simple partial seizures, not intractable, without status epilepticus; R91.8 Other nonspecific abnormal finding of lung field; Z79.82 Long term (current) use of aspirin; F17.220 Nicotine dependence, chewing tobacco, uncomplicated; E78.00 Pure hypercholesterolemia, unspecified; Z79.899 Other long term (current) drug therapy
CPT/HCPCS: 66984; J0697; J2250; J3010; V2632

== ENCOUNTER 2023-09-20 13:56 | Inpatient (IN) | payer MEDICARE ==
[~2023-09-20] VITALS: Ht 177.8 cm; Wt 70.6 kg
[~2023-09-20 13:56] MED LIST changes: -ACETYLCHOLINE OPHTH SOLN 1% 2ML (MIOCHOL-E) As Ordered ONE; -BSS IRRIG/VANCO(10MG)/TOBRA(5MG)/EPINEPH(1:1000-0.5CC)500ML BAG-ORONLY IR ONE; +CARB400T11 PO; -CARB400T4 PO; -CEFUROXIME 1MG/0.1ML INTRACAMERAL INJ As Ordered ONE; -CYCLOPENTOLATE 1% OPHTH SOLN 2ML BTL OD SCH; -DUOVISC (0.50ML VISCOAT/0.85ML PROVISC) OPHTH KIT As Ordered ONE; -LIDOCAINE 1% SDV 5ML VIAL As Ordered ONE; -LIDOCAINE 3.5 % 1ML OPHTH TOPICAL GEL OU ONE; -MIDAZOLAM INJ 2MG/2ML VIAL As Ordered ONE; -OFLOXACIN 0.3 % (OCUFLOX) OPTH SOL 5ML OD ONE; -PHENYLEPHRINE 10% OPHTH SOL 5ML OD PRN; -PHENYLEPHRINE 2.5% OPHTH SOL 2ML OD SCH; -TROPICAMIDE 1% OPHTH SOLN 15ML OD SCH; -TRYPAN BLUE 0.06 % 2.25 ML OPHTH SYR (VISIONBLUE) As Ordered ONE; -fentaNYL 100 MCG/2 ML INJECTION As Ordered ONE
[2023-09-20] MEDS ORDERED: IBUP200C25 PO (14:33)
[2023-09-20] MEDS ORDERED: LEXA1TAB PO (14:33)
[2023-09-20] MEDS ORDERED: HOME MED LIST COMPLETE! XX SCH ×2 (14:35→17:15)
[2023-09-20 14:52] LABS: BASO % 0.3 % (0.0-1.0); EOS % 0.1 % (0.0-3.0); HEMATOCRIT 37.9 % (42.0-52.0); HEMOGLOBIN 13.7 g/dl (13.5-17.5); LYMPH # 0.6 10^3/uL (1.5-5.0); LYMPH % 7.1 % (24.0-44.0); MEAN CORPUSCULAR HEMOGLOBIN 31.6 pg (27.0-33.0); MEAN CORPUSCULAR HGB CONC 36.1 g/dl (32.0-36.5); MEAN CORPUSCULAR VOLUME 87.3 fl (80.0-96.0); MONO # 0.6 10^3/uL (0.0-0.8); MONO % 6.6 % (2.0-8.0); NEUTROPHILS # 7.7 10^3/uL (1.5-8.5); NEUTROPHILS % 85.3 % (36.0-66.0); PLATELET COUNT, AUTOMATED 146 10^3/uL (150-450); RED BLOOD COUNT 4.34 10^6/uL (4.30-6.10)
[2023-09-20] MEDS: levETIRAcetam INJection 1,000 MG in D5W 100 ML IV ONE (15:07)
[2023-09-20 15:18] LABS: INR 1.1; PARTIAL THROMBOPLASTIN TIME 24.2 SECONDS (24.8-34.2); PROTHROMBIN TIME 13.9 SECONDS (12.5-14.5)
[2023-09-20 15:20] LABS: ETHYL ALCOHOL (ETHANOL) < 0.003 % (0.000-0.010); LIPASE 38 U/L (12-53)
[2023-09-20 15:21] LABS: AMYLASE 72 U/L (30-118)
[2023-09-20 15:22] LABS: ALBUMIN 3.1 G/DL (3.2-5.2); ALKALINE PHOSPHATASE 72 U/L (46-116); ALT/SGPT 33 U/L (7.0-40); AST/SGOT 58 U/L (<34); BILIRUBIN,DIRECT 0.4 MG/DL (<0.4); BILIRUBIN,TOTAL 0.7 MG/DL (0.3-1.2); BLOOD UREA NITROGEN 30 MG/DL (9-23); CALCIUM LEVEL 10.1 MG/DL (8.3-10.6); CARBON DIOXIDE LEVEL 17 MMOL/L (20-31); CHLORIDE LEVEL 90 MMOL/L (98-107); CK-MB VALUE MASS 5.3 NG/ML (<3.6); CREATININE FOR GFR 1.64 MG/DL (0.70-1.30); GLOMERULAR FILTRATION RATE 44.7 (>49); GLUCOSE, FASTING 109 MG/DL (74-106); POTASSIUM SERUM 3.5 MMOL/L (3.5-5.1); SODIUM LEVEL 125 MMOL/L (136-145); TOTAL PROTEIN 6.7 G/DL (5.7-8.2)
[2023-09-20] MEDS: NS 1,000 ML IV ONE (15:22)
[2023-09-20 15:23] LABS: CPK CREATINE PHOSPHOKINASE 462 U/L (46-171); MB/CK RELATIVE INDEX 1.14 (< OR =4)
[2023-09-20] MEDS ORDERED: ISOVUE-370 76% 100ML VIAL As Ordered ONE (15:27)
[2023-09-20] MEDS: LIDOCAINE 2% 5ML JELLY UROJET TOP ONE (16:10)
[2023-09-20] MEDS ORDERED: ACETAMINOPHEN 500 MG TAB PO PRN (17:50)
[2023-09-20 18:04] LABS: URIC ACID 8.5 MG/DL (3.7-9.2)
[2023-09-20 18:07] LABS: CALCIUM LEVEL 9.1 MG/DL (8.3-10.6); CREATININE FOR GFR 1.45 MG/DL (0.70-1.30); GLOMERULAR FILTRATION RATE 51.5 (>49); MAGNESIUM LEVEL 1.3 MG/DL (1.8-2.4); POTASSIUM SERUM 3.4 MMOL/L (3.5-5.1)
[2023-09-20 18:10] LABS: FOLATE 5.83 NG/ML (>5.4); THYROID STIMULATING HORMONE 0.225 uIU/ML (0.55-4.78)
[2023-09-20] MEDS: levETIRAcetam INJection 500 MG in D5W MINI-BAG PLUS 100 ML IV ONE (18:26)
[2023-09-20] MEDS: POTASSIUM CHLORIDE 10MEQ SR TABLET PO ONE (18:27)
[2023-09-20] MEDS ORDERED: GLUCAGON INJ 1MG VIAL SC PRN (18:30)
[2023-09-20] MEDS ORDERED: DEXTROSE 50% 50ML SYRINGE IV PRN (18:30)
[2023-09-20] MEDS ORDERED: GLUCOSE 4 GM CHEW PO PRN (18:30)
[2023-09-20 18:43] LABS: FREE T4 1.25 NG/DL (0.89-1.76)
[2023-09-20 19:11] LABS: TOTAL PROTEIN,RANDOM URINE 47.2 MG/DL (0.0-14.0)
[2023-09-20 19:16] LABS: PROCALCITONIN 0.5 ng/ml
[2023-09-20 19:16] LABS: CREATININE,RANDOM URINE 24.3 MG/DL
[2023-09-20 19:26] LABS: AMPHETAMINES LEVEL URINE NEGATIVE (NEGATIVE); CANNABINOIDS URINE NEGATIVE (NEGATIVE); METHADONE URINE NEGATIVE (NEGATIVE); OPIATES URINE NEGATIVE (NEGATIVE); PHENCYCLIDINE URINE NEGATIVE (NEGATIVE)
[2023-09-20 19:27] LABS: BARBITURATES URINE NEGATIVE (NEGATIVE); BENZODIAZEPINES URINE NEGATIVE (NEGATIVE); COCAINE METABOLITE URINE NEGATIVE (NEGATIVE)
[2023-09-20] MEDS: NS 1,000 ML IV SCH (19:46)
[2023-09-20] MEDS: MAG SULF 1GM/100ML (MAG RUN) 1 GM in IV 1 EA IV SCH (19:46)
[2023-09-20] MEDS: LORazepam 2 MG TAB PO PRN (19:47)
[2023-09-20] MEDS ORDERED: LABETALOL 100MG/20ML VIAL IV PRN (19:55)
[2023-09-20 20:47] VITALS: BP 107/59; TEMP 97; O2SAT 97
[2023-09-20] MEDS ORDERED: levETIRAcetam 250MG TABLET (KEPPRA) PO SCH (21:00)
[2023-09-20] MEDS ORDERED: THIAMINE 100 MG TAB PO SCH (21:00)
[2023-09-20] MEDS: THIAMINE INJection 500 MG in NS 100 ML IV SCH (22:19)
[2023-09-20 22:21] VITALS: BP 88/58
[2023-09-20] MEDS: cefTRIAXone SOD 2 GM in D5W MINI-BAG PLUS 50 ML IV SCH (23:04)
[2023-09-20 23:34] LABS: CALCIUM LEVEL 8.9 MG/DL (8.3-10.6); CREATININE FOR GFR 1.55 MG/DL (0.70-1.30); GLOMERULAR FILTRATION RATE 47.7 (>49); MAGNESIUM LEVEL 1.9 MG/DL (1.8-2.4); POTASSIUM SERUM 3.1 MMOL/L (3.5-5.1)
[2023-09-20 23:36] VITALS: BP 112/69; TEMP 96.7; O2SAT 97
[2023-09-21] VITALS (9 sets, daily range): BP systolic 112–158; BP diastolic 67–90; TEMP 97–97.5; O2SAT 88–97
[2023-09-21] MEDS ORDERED: POTASSIUM CHLORIDE 10MEQ SR TABLET PO ONE (02:00)
[2023-09-21 03:47] LABS: HEMOGLOBIN 11.8 g/dl (13.5-17.5); MEAN CORPUSCULAR HEMOGLOBIN 31.1 pg (27.0-33.0); MEAN CORPUSCULAR HGB CONC 35.8 g/dl (32.0-36.5); MEAN CORPUSCULAR VOLUME 86.8 fl (80.0-96.0); WHITE BLOOD COUNT 15.1 10^3/uL (4.0-10.0)
[2023-09-21 04:10] LABS: PLATELET COUNT, AUTOMATED 74 10^3/uL (150-450)
[2023-09-21 04:13] LABS: CALCIUM LEVEL 8.4 MG/DL (8.3-10.6); CREATININE FOR GFR 1.31 MG/DL (0.70-1.30); GLOMERULAR FILTRATION RATE 57.9 (>49); POTASSIUM SERUM 2.8 MMOL/L (3.5-5.1)
[2023-09-21] MEDS: KCL 10MEQ/100ML SWI (KRUN) 10 MEQ in IV 1 EA IV SCH (04:24)
[2023-09-21] MEDS: KCL 40MEQ in NS 1000ML 1,000 ML IV SCH (05:33)
[2023-09-21] MEDS: HEPARIN SOD (PORCINE) 5000UNITS/ML 1ML VIAL/SYRINGE SC SCH (05:41)
[2023-09-21] MEDS ORDERED: KCL 10MEQ/100ML SWI (KRUN) 10 MEQ in IV 1 EA IV SCH (06:00)
[2023-09-21 08:26] LABS: ABG BASE EXCESS -5.6 (-2.0-2.0); ABG HCO3 16.1 MMOL/L (22.0-26.0); ABG PARTIAL PRESSURE CO2 22.5 mmHg (35.0-45.0); ABG PARTIAL PRESSURE O2 92.3 mmHg (75.0-100.0); ABG STANDARD HCO3 19.9 MMOL/L. (22.0-26.0); ABG TOTAL CO2 16.8 MMOL/L (23.0-31.0); ABG pH (ARTERIAL) 7.472 UNITS (7.350-7.450)
[2023-09-21 08:56] LABS: BLOOD UREA NITROGEN 23 MG/DL (9-23); CALCIUM LEVEL 8.5 MG/DL (8.3-10.6); CARBON DIOXIDE LEVEL 18 MMOL/L (20-31); CHLORIDE LEVEL 100 MMOL/L (98-107); CREATININE FOR GFR 1.16 MG/DL (0.70-1.30); GLOMERULAR FILTRATION RATE > 60.0 (>49); GLUCOSE, FASTING 96 MG/DL (74-106); POTASSIUM SERUM 3.6 MMOL/L (3.5-5.1); SODIUM LEVEL 129 MMOL/L (136-145)
[2023-09-21] MEDS: ATORVASTATIN 20 MG TAB PO SCH (09:00)
[2023-09-21] MEDS: MULTIVITAMINS/MINERALS THERAP 1 TAB PO SCH (09:00)
[2023-09-21] MEDS: FOLIC ACID 1MG TAB PO SCH (09:00)
[2023-09-21] MEDS: PROPRANOLOL 10 MG TAB PO SCH (09:00)
[2023-09-21] MEDS: TAMSULOSIN 0.4 MG CAP PO SCH (09:00)
[2023-09-21] MEDS: amLODIPine 5 MG TAB PO SCH (09:00)
[2023-09-21] MEDS: ASPIRIN 81MG ENTERIC TABLET PO SCH (09:00)
[2023-09-21] MEDS: levETIRAcetam INJection 750 MG in D5W 100 ML IV SCH (11:47)
[2023-09-21] MEDS: MAG SULF 1GM/100ML (MAG RUN) 1 GM in IV 1 EA IV SCH (11:49)
[2023-09-21] MEDS: THIAMINE 100 MG TAB PO SCH (20:15)
[2023-09-22] VITALS (12 sets, daily range): BP systolic 102–142; BP diastolic 73–88; TEMP 96.7–97.1; O2SAT 96–99
[2023-09-22 04:52] LABS: BASO # 0.1 10^3/uL (0.0-0.2); BASO % 0.2 % (0.0-1.0); HEMATOCRIT 33.1 % (42.0-52.0); HEMOGLOBIN 11.9 g/dl (13.5-17.5); LYMPH # 0.8 10^3/uL (1.5-5.0); LYMPH % 3.9 % (24.0-44.0); MEAN CORPUSCULAR HEMOGLOBIN 31.6 pg (27.0-33.0); MEAN CORPUSCULAR VOLUME 87.8 fl (80.0-96.0); MONO # 1.2 10^3/uL (0.0-0.8); MONO % 5.8 % (2.0-8.0); NEUTROPHILS # 18.4 10^3/uL (1.5-8.5); RED BLOOD COUNT 3.77 10^6/uL (4.30-6.10); WHITE BLOOD COUNT 20.7 10^3/uL (4.0-10.0)
[2023-09-22 04:58] LABS: PLATELET COUNT, AUTOMATED 40 10^3/uL (150-450)
[2023-09-22 05:20] LABS: BLOOD UREA NITROGEN 24 MG/DL (9-23); CALCIUM LEVEL 8.2 MG/DL (8.3-10.6); CARBON DIOXIDE LEVEL 21 MMOL/L (20-31); CHLORIDE LEVEL 105 MMOL/L (98-107); CREATININE FOR GFR 1.13 MG/DL (0.70-1.30); GLOMERULAR FILTRATION RATE > 60.0 (>49); GLUCOSE, FASTING 91 MG/DL (74-106); MAGNESIUM LEVEL 1.9 MG/DL (1.8-2.4); POTASSIUM SERUM 3.8 MMOL/L (3.5-5.1); SODIUM LEVEL 133 MMOL/L (136-145)
[2023-09-22 05:23] LABS: TOTAL 25(OH) VITAMIN D 76.7 NG/ML (20.0-100.0)
[2023-09-22 07:52] LABS: PROCALCITONIN 30.81 ng/ml
[2023-09-22] MEDS: VITAMIN D 1,000 INTERNATIONAL UNITS TABLET PO SCH (09:00)
[2023-09-22 09:08] LABS: ALBUMIN 2.3 G/DL (3.2-5.2); ALKALINE PHOSPHATASE 57 U/L (46-116); ALT/SGPT 39 U/L (7.0-40); AST/SGOT 109 U/L (<34); BILIRUBIN,DIRECT 4.1 MG/DL (<0.4); BILIRUBIN,TOTAL 5.5 MG/DL (0.3-1.2); TOTAL PROTEIN 5.1 G/DL (5.7-8.2)
[2023-09-22 10:32] LABS: INR 1.29; PARTIAL THROMBOPLASTIN TIME 30.3 SECONDS (24.8-34.2); PROTHROMBIN TIME 15.7 SECONDS (12.5-14.5)
[2023-09-22] MEDS: CEFEPIME HCL 2 GM in D5W MINI-BAG PLUS 50 ML IV SCH (10:34)
[2023-09-22] MEDS: metroNIDAZOLE 500 MG in IV 1 EA IV SCH (12:06)
[2023-09-22 13:01] LABS: HEPATITIS B SURFACE ANTIGEN NEGATIVE (NEGATIVE)
[2023-09-22 13:22] LABS: HEPATITIS B CORE ANTIBODY IGM NEGATIVE (NEGATIVE); HEPATITIS C VIRUS ABY INDEX < 0.02 INDEX (<0.8)
[2023-09-23] VITALS (10 sets, daily range): BP systolic 100–146; BP diastolic 61–82; TEMP 96.7–97.9; O2SAT 93–100
[2023-09-23 06:14] LABS: BASO # 0.1 10^3/uL (0.0-0.2); BASO % 0.5 % (0.0-1.0); EOS # 0.2 10^3/uL (0.0-0.5); EOS % 1.4 % (0.0-3.0); HEMATOCRIT 27.5 % (42.0-52.0); LYMPH # 1.2 10^3/uL (1.5-5.0); LYMPH % 9.3 % (24.0-44.0); MEAN CORPUSCULAR HEMOGLOBIN 30.9 pg (27.0-33.0); MEAN CORPUSCULAR HGB CONC 35.6 g/dl (32.0-36.5); MEAN CORPUSCULAR VOLUME 86.8 fl (80.0-96.0); MONO # 0.7 10^3/uL (0.0-0.8); MONO % 5.7 % (2.0-8.0); NEUTROPHILS # 10.7 10^3/uL (1.5-8.5); RED BLOOD COUNT 3.17 10^6/uL (4.30-6.10); WHITE BLOOD COUNT 13.1 10^3/uL (4.0-10.0)
[2023-09-23 06:24] LABS: HEMOGLOBIN 9.8 g/dl (13.5-17.5); PLATELET COUNT, AUTOMATED 36 10^3/uL (150-450)
[2023-09-23 06:37] LABS: ALKALINE PHOSPHATASE 51 U/L (46-116); ALT/SGPT 31 U/L (7.0-40); AST/SGOT 64 U/L (<34); BILIRUBIN,DIRECT 1.4 MG/DL (<0.4); BILIRUBIN,TOTAL 2.1 MG/DL (0.3-1.2); BLOOD UREA NITROGEN 20 MG/DL (9-23); CALCIUM LEVEL 7.9 MG/DL (8.3-10.6); CARBON DIOXIDE LEVEL 20 MMOL/L (20-31); CHLORIDE LEVEL 107 MMOL/L (98-107); CREATININE FOR GFR 0.82 MG/DL (0.70-1.30); GLOMERULAR FILTRATION RATE > 60.0 (>49); GLUCOSE, FASTING 86 MG/DL (74-106); MAGNESIUM LEVEL 1.3 MG/DL (1.8-2.4); POTASSIUM SERUM 4.1 MMOL/L (3.5-5.1); SODIUM LEVEL 134 MMOL/L (136-145); TOTAL PROTEIN 4.6 G/DL (5.7-8.2)
[2023-09-23] MEDS: MAG SULF 1GM/100ML (MAG RUN) 1 GM in IV 1 EA IV SCH (08:46)
[2023-09-23] MEDS ORDERED: LORazepam 2 MG/ML 1ML VIAL IV PRN (11:55)
[2023-09-23] MEDS: levETIRAcetam 250MG TABLET (KEPPRA) PO SCH (20:36)
[2023-09-24] VITALS (10 sets, daily range): BP systolic 98–150; BP diastolic 62–86; TEMP 97–97.9; O2SAT 97–100
[2023-09-24 06:23] LABS: BASO # 0.1 10^3/uL (0.0-0.2); BASO % 0.7 % (0.0-1.0); EOS # 0.2 10^3/uL (0.0-0.5); EOS % 2.5 % (0.0-3.0); HEMATOCRIT 26.7 % (42.0-52.0); HEMOGLOBIN 9.6 g/dl (13.5-17.5); LYMPH # 1.4 10^3/uL (1.5-5.0); LYMPH % 15.9 % (24.0-44.0); MEAN CORPUSCULAR HEMOGLOBIN 31.7 pg (27.0-33.0); MEAN CORPUSCULAR VOLUME 88.1 fl (80.0-96.0); MONO # 0.6 10^3/uL (0.0-0.8); MONO % 6.6 % (2.0-8.0); NEUTROPHILS # 6.2 10^3/uL (1.5-8.5); NEUTROPHILS % 73.4 % (36.0-66.0); RED BLOOD COUNT 3.03 10^6/uL (4.30-6.10); WHITE BLOOD COUNT 8.5 10^3/uL (4.0-10.0)
[2023-09-24 06:27] LABS: PLATELET COUNT, AUTOMATED 32 10^3/uL (150-450)
[2023-09-24 06:51] LABS: ALBUMIN 2.2 G/DL (3.2-5.2); ALKALINE PHOSPHATASE 58 U/L (46-116); ALT/SGPT 30 U/L (7.0-40); AST/SGOT 47 U/L (<34); BILIRUBIN,DIRECT 1.2 MG/DL (<0.4); BILIRUBIN,TOTAL 1.9 MG/DL (0.3-1.2); BLOOD UREA NITROGEN 16 MG/DL (9-23); CALCIUM LEVEL 7.8 MG/DL (8.3-10.6); CARBON DIOXIDE LEVEL 23 MMOL/L (20-31); CHLORIDE LEVEL 104 MMOL/L (98-107); CREATININE FOR GFR 0.76 MG/DL (0.70-1.30); GLOMERULAR FILTRATION RATE > 60.0 (>49); GLUCOSE, FASTING 83 MG/DL (74-106); MAGNESIUM LEVEL 1.6 MG/DL (1.8-2.4); POTASSIUM SERUM 3.8 MMOL/L (3.5-5.1); SODIUM LEVEL 134 MMOL/L (136-145); TOTAL PROTEIN 4.8 G/DL (5.7-8.2)
[2023-09-24] MEDS: CEFDINIR 300 MG CAP (OMNICEF) PO SCH (09:54)
[2023-09-24] MEDS ORDERED: AMLO1TAB24 PO (18:32)
[2023-09-24] MEDS ORDERED: THIA100TA PO (18:32)
[2023-09-24] MEDS ORDERED: FOLI1TAB11 PO (18:32)
[2023-09-24] MEDS ORDERED: CEFD300CAP PO (18:32)
[2023-09-24] MEDS ORDERED: FLOM0.4C39 PO (18:32)
[2023-09-24] MEDS ORDERED: Multivitamins PO (18:32)
== END 2023-09-25 00:11 | disposition short-term general hospital (02) | DRG 682 ==
LOC: EDBD 13:56 → M ED 13:56 → M ED INP 17:12 → M PCU 20:47
PROVIDERS: ADMIT Internal Medicine; ATTEND Internal Medicine
PROC: B246ZZZ Ultrasonography of Right and Left Heart (ICD-10-PCS; principal; 2023-09-21)
DX: N17.9 Acute kidney failure, unspecified (principal); G93.41 Metabolic encephalopathy; N39.0 Urinary tract infection, site not specified; E87.1 Hypo-osmolality and hyponatremia; E87.20 Acidosis, unspecified; R78.81 Bacteremia; D59.4 Other nonautoimmune hemolytic anemias; G40.909 Epilepsy, unspecified, not intractable, without status epilepticus; F10.20 Alcohol dependence, uncomplicated; F39 Unspecified mood [affective] disorder; R32 Unspecified urinary incontinence; R94.31 Abnormal electrocardiogram [ECG] [EKG]; E86.0 Dehydration; N40.1 Benign prostatic hyperplasia with lower urinary tract symptoms; R33.9 Retention of urine, unspecified; I16.0 Hypertensive urgency; D53.9 Nutritional anemia, unspecified; D69.6 Thrombocytopenia, unspecified; F17.220 Nicotine dependence, chewing tobacco, uncomplicated; I12.9 Hypertensive chronic kidney disease with stage 1 through stage 4 chronic kidney disease, or unspecified chronic kidney disease; E55.9 Vitamin D deficiency, unspecified; E87.6 Hypokalemia; E78.5 Hyperlipidemia, unspecified; N18.9 Chronic kidney disease, unspecified; B96.20 Unspecified Escherichia coli [E. coli] as the cause of diseases classified elsewhere; K70.10 Alcoholic hepatitis without ascites; R13.10 Dysphagia, unspecified; M47.816 Spondylosis without myelopathy or radiculopathy, lumbar region; M48.061 Spinal stenosis, lumbar region without neurogenic claudication; Z98.41 Cataract extraction status, right eye; Z79.82 Long term (current) use of aspirin; Z79.899 Other long term (current) drug therapy

== ENCOUNTER → 2024-02-22 | Outpatient (CLI) | payer MEDICARE, MEDICAID ==
[~2024-02-22] MED LIST changes: +CEFD300CAP PO; +CELE10TA PO; +FERR325T3 PO; +FLOM0.4C39 PO; +IBUP200C25 PO; +LEXA1TAB PO; +Multivitamins PO; +PANT40TA29 PO; +POLY17PO18 PO; +PRED20TA PO; +SENN8.6T58 PO; +TAMS1CAP17 PO; +THIA100TA PO
[2024-02-22 16:44] LABS: BASO # 0.1 10^3/uL (0.0-0.2); BASO % 0.8 % (0.0-1.0); EOS % 10.9 % (0.0-3.0); HEMATOCRIT 35.8 % (42.0-52.0); HEMOGLOBIN 11.7 g/dl (13.5-17.5); LYMPH # 2.6 10^3/uL (1.5-5.0); LYMPH % 27.3 % (24.0-44.0); MEAN CORPUSCULAR HEMOGLOBIN 25.4 pg (27.0-33.0); MEAN CORPUSCULAR HGB CONC 32.7 g/dl (32.0-36.5); MEAN CORPUSCULAR VOLUME 77.7 fl (80.0-96.0); MONO # 0.9 10^3/uL (0.0-0.8); MONO % 9.3 % (2.0-8.0); NEUTROPHILS # 4.9 10^3/uL (1.5-8.5); NEUTROPHILS % 51.5 % (36.0-66.0); PLATELET COUNT, AUTOMATED 307 10^3/uL (150-450); RED BLOOD COUNT 4.61 10^6/uL (4.30-6.10); WHITE BLOOD COUNT 9.4 10^3/uL (4.0-10.0)
[2024-02-22 17:01] LABS: ALBUMIN 3.5 G/DL (3.2-5.2); ALKALINE PHOSPHATASE 157 U/L (40-129); ALT/SGPT 12 U/L (7.0-40); AST/SGOT 10 U/L (<34); BILIRUBIN,TOTAL 0.4 MG/DL (0.3-1.2); BLOOD UREA NITROGEN 9 MG/DL (9-23); CALCIUM LEVEL 9.5 MG/DL (8.3-10.6); CARBON DIOXIDE LEVEL 28 MMOL/L (20-31); CHLORIDE LEVEL 107 MMOL/L (98-107); CREATININE FOR GFR 0.88 MG/DL (0.70-1.30); GLOMERULAR FILTRATION RATE > 60.0 (>49); GLUCOSE, FASTING 90 MG/DL (74-106); POTASSIUM SERUM 3.9 MMOL/L (3.5-5.1); SODIUM LEVEL 141 MMOL/L (136-145); TOTAL PROTEIN 6.8 G/DL (5.7-8.2)
== END ==
LOC: M LAB 16:11
PROVIDERS: ATTEND Student in an Organized Health Care Education/Training Program
DX: G40.909 Epilepsy, unspecified, not intractable, without status epilepticus (principal)

== ENCOUNTER → 2024-08-31 | Outpatient (CLI) | payer MEDICAID, MEDICARE ==
[~2024-08-31] MED LIST changes: -FLOM0.4C39 PO; +TAMS-18 PO
[2024-08-31 15:53] LABS: BASO # 0.1 10^3/uL (0.0-0.2); BASO % 0.9 % (0.0-1.0); EOS # 0.3 10^3/uL (0.0-0.5); EOS % 3.6 % (0.0-3.0); HEMATOCRIT 40.6 % (42.0-52.0); HEMOGLOBIN 13.5 g/dl (13.5-17.5); LYMPH # 2.5 10^3/uL (1.5-5.0); LYMPH % 29.3 % (24.0-44.0); MEAN CORPUSCULAR HEMOGLOBIN 31.3 pg (27.0-33.0); MEAN CORPUSCULAR HGB CONC 33.3 g/dl (32.0-36.5); MEAN CORPUSCULAR VOLUME 94.2 fl (80.0-96.0); MONO % 11.5 % (2.0-8.0); NEUTROPHILS # 4.7 10^3/uL (1.5-8.5); NEUTROPHILS % 54.4 % (36.0-66.0); PLATELET COUNT, AUTOMATED 228 10^3/uL (150-450); RED BLOOD COUNT 4.31 10^6/uL (4.30-6.10); WHITE BLOOD COUNT 8.6 10^3/uL (4.0-10.0)
[2024-08-31 16:21] LABS: ALBUMIN 3.6 G/DL (3.2-5.2); ALKALINE PHOSPHATASE 107 U/L (40-129); ALT/SGPT 16 U/L (7.0-40); AST/SGOT 17 U/L (<34); BILIRUBIN,TOTAL 0.3 MG/DL (0.3-1.2); BLOOD UREA NITROGEN 13 MG/DL (9-23); CALCIUM LEVEL 9.3 MG/DL (8.3-10.6); CARBON DIOXIDE LEVEL 25 MMOL/L (20-31); CHLORIDE LEVEL 106 MMOL/L (98-107); CHOLESTEROL LEVEL 160 MG/DL (<200); CHOLESTEROL RISK RATIO 2.06 (<5); CREATININE FOR GFR 0.92 MG/DL (0.70-1.30); GLOMERULAR FILTRATION RATE > 90.0 (>49); GLUCOSE, FASTING 79 MG/DL (74-106); HDL CHOLESTEROL 77.3 MG/DL (>40); LDL CHOLESTEROL 60.5 MG/DL (<100); NON-HDL-C 82.7 MG/DL; POTASSIUM SERUM 4.1 MMOL/L (3.5-5.1); SODIUM LEVEL 141 MMOL/L (136-145); TOTAL PROTEIN 7.2 G/DL (5.7-8.2); TRIGLYCERIDES LEVEL 111 MG/DL (<150)
[2024-08-31 16:23] LABS: TOTAL 25(OH) VITAMIN D 34.4 NG/ML (20.0-100.0)
== END ==
LOC: M LAB 15:13
PROVIDERS: ATTEND Student in an Organized Health Care Education/Training Program
DX: Z00.00 Encounter for general adult medical examination without abnormal findings (principal); E78.5 Hyperlipidemia, unspecified; Z13.1 Encounter for screening for diabetes mellitus; F10.10 Alcohol abuse, uncomplicated

== ENCOUNTER 2024-11-06 14:41 | Inpatient (IN) | payer MEDICAID, MEDICARE ==
[~2024-11-06] VITALS: Ht 177.8 cm; Wt 79.5 kg
[~2024-11-06 14:41] MED LIST changes: +LISI40TA10 PO; -LISI40TA4 PO
[2024-11-06] MEDS: NS (Normal Saline) 0.9% 1,000 ML IV ONE (17:49)
[2024-11-06 18:31] LABS: BASO # 0.1 10^3/uL (0.0-0.2); BASO % 0.4 % (0.0-1.0); EOS # 0.0 10^3/uL (0.0-0.5); EOS % 0.0 % (0.0-3.0); LYMPH # 1.2 10^3/uL (1.5-5.0); LYMPH % 8.3 % (24.0-44.0); MONO # 1.0 10^3/uL (0.0-0.8); MONO % 7.1 % (2.0-8.0); NEUTROPHILS # 11.7 10^3/uL (1.5-8.5); NEUTROPHILS % 83.6 % (36.0-66.0); PLATELET COUNT, AUTOMATED 267 10^3/uL (150-450)
[2024-11-06] MEDS ORDERED: ISOVUE-370 76% 100 ML VIAL As Ordered ONE (18:46)
[2024-11-06 18:47] LABS: INR 0.99
[2024-11-06 18:51] LABS: ALT/SGPT 22 U/L (7.0-40); AST/SGOT 36 U/L (<34); CALCIUM LEVEL 8.8 MG/DL (8.3-10.6); CARBON DIOXIDE LEVEL 20 MMOL/L (20-31); CHLORIDE LEVEL 100 MMOL/L (98-107); CPK CREATINE PHOSPHOKINASE 477 U/L (46-171); CREATININE FOR GFR 0.80 MG/DL (0.70-1.30); GLOMERULAR FILTRATION RATE > 90.0 (>49); POTASSIUM SERUM 4.5 MMOL/L (3.5-5.1); SODIUM LEVEL 138 MMOL/L (136-145)
[2024-11-06] MEDS ORDERED: LEXA1TAB2 PO (20:28)
[2024-11-06] MEDS ORDERED: HOME MED LIST COMPLETE! XX SCH (20:30)
[2024-11-06] MEDS: THIAMINE 100 MG TAB PO SCH (21:37)
[2024-11-07] MEDS ORDERED: NICOTINE POLACRILEX 2 MG GUM PO PRN (00:55)
[2024-11-07 01:35] LABS: PLATELET COUNT, AUTOMATED 202 10^3/uL (150-450)
[2024-11-07] MEDS: LORazepam 1 MG TAB PO SCH (02:14)
[2024-11-07] MEDS: ACETAMINOPHEN 500 MG TAB PO SCH (02:15)
[2024-11-07] MEDS: CEFEPIME HCL 2 GM in DEXTROSE 5% (D5W) ADV/MINI-BAG 50 ML IV SCH (02:15)
[2024-11-07] MEDS: LR 1,000 ML IV SCH (02:15)
[2024-11-07 02:44] LABS: CALCIUM LEVEL 8.4 MG/DL (8.3-10.6); CARBON DIOXIDE LEVEL 22 MMOL/L (20-31); CHLORIDE LEVEL 99 MMOL/L (98-107); CREATININE FOR GFR 0.83 MG/DL (0.70-1.30); GLOMERULAR FILTRATION RATE > 90.0 (>49); POTASSIUM SERUM 4.1 MMOL/L (3.5-5.1); SODIUM LEVEL 136 MMOL/L (136-145)
[2024-11-07 03:45] VITALS: BP 146/87; TEMP 97.5; O2SAT 96
[2024-11-07] MEDS: KETOROLAC 30 MG/ML 1 ML VIAL IV PRN (04:01)
[2024-11-07 06:01] VITALS: BP 145/89; TEMP 97.3; O2SAT 97
[2024-11-07 07:54] LABS: PLATELET COUNT, AUTOMATED 214 10^3/uL (150-450)
[2024-11-07 08:00] VITALS: BP 148/86; TEMP 97.9
[2024-11-07 08:19] LABS: CALCIUM LEVEL 8.4 MG/DL (8.3-10.6); CARBON DIOXIDE LEVEL 24 MMOL/L (20-31); CHLORIDE LEVEL 98 MMOL/L (98-107); CREATININE FOR GFR 0.90 MG/DL (0.70-1.30); GLOMERULAR FILTRATION RATE > 90.0 (>49); POTASSIUM SERUM 4.0 MMOL/L (3.5-5.1); SODIUM LEVEL 135 MMOL/L (136-145)
[2024-11-07] MEDS: ASPIRIN 81 MG ENTERIC TABLET PO SCH (08:43)
[2024-11-07] MEDS: ATORVASTATIN 20 MG TAB PO SCH (08:43)
[2024-11-07] MEDS: ESCITALOPRAM OXALATE 10 MG TABLET PO SCH (08:43)
[2024-11-07] MEDS: HEPARIN SOD 5000 UNITS/ML 1 ML VIAL/SYRINGE SC SCH (08:44)
[2024-11-07] MEDS ORDERED: FOLIC ACID 1 MG TAB PO SCH (09:00)
[2024-11-07] MEDS ORDERED: MULTIVITAMINS/MINERALS THERAP 1 TAB PO SCH (09:00)
[2024-11-07 12:00] VITALS: TEMP 97.5; O2SAT 98
[2024-11-07 16:00] VITALS: BP 102/81; TEMP 97.7; O2SAT 96
[2024-11-07 20:00] VITALS: BP 112/68; TEMP 97.5; O2SAT 98
[2024-11-08] VITALS: BP 152/82; TEMP 97.5; O2SAT 95
[2024-11-08 04:00] VITALS: BP 138/90; TEMP 97.3; O2SAT 95
[2024-11-08 06:11] LABS: PLATELET COUNT, AUTOMATED 172 10^3/uL (150-450)
[2024-11-08 06:44] LABS: CALCIUM LEVEL 8.4 MG/DL (8.3-10.6); CARBON DIOXIDE LEVEL 26 MMOL/L (20-31); CHLORIDE LEVEL 99 MMOL/L (98-107); CREATININE FOR GFR 0.92 MG/DL (0.70-1.30); GLOMERULAR FILTRATION RATE > 90.0 (>49); POTASSIUM SERUM 3.5 MMOL/L (3.5-5.1); SODIUM LEVEL 134 MMOL/L (136-145)
[2024-11-08 08:00] VITALS: BP 122/78; TEMP 97.3; O2SAT 98
[2024-11-08 12:00] VITALS: BP 104/65; TEMP 97; O2SAT 98
[2024-11-08] MEDS ORDERED: MELOXICAM 7.5 MG TAB PO PRN (12:20)
[2024-11-08] MEDS ORDERED: KETOROLAC 30 MG/ML 1 ML VIAL IV PRN (12:25)
[2024-11-08 16:00] VITALS: BP 115/60; TEMP 97.2; O2SAT 97
[2024-11-08 20:49] VITALS: BP 121/72; TEMP 97.7; O2SAT 97
[2024-11-09 05:36] VITALS: BP 124/76; TEMP 97.5; O2SAT 95
[2024-11-09 06:08] LABS: PLATELET COUNT, AUTOMATED 175 10^3/uL (150-450)
[2024-11-09 06:36] LABS: CALCIUM LEVEL 8.3 MG/DL (8.3-10.6); CARBON DIOXIDE LEVEL 25 MMOL/L (20-31); CHLORIDE LEVEL 102 MMOL/L (98-107); CREATININE FOR GFR 0.80 MG/DL (0.70-1.30); GLOMERULAR FILTRATION RATE > 90.0 (>49); POTASSIUM SERUM 3.9 MMOL/L (3.5-5.1); SODIUM LEVEL 139 MMOL/L (136-145)
[2024-11-09 08:59] VITALS: BP 130/70; TEMP 97.2; O2SAT 100
[2024-11-09 12:00] VITALS: BP_SYST 109; BP_SYST 120; BP_DIAS 60; BP_DIAS 70; TEMP 97.3; TEMP 97.9; O2SAT 96; O2SAT 97
[2024-11-09 16:00] VITALS: BP 121/61; TEMP 98; O2SAT 95
[2024-11-09 20:28] VITALS: BP 111/60; TEMP 97.3; O2SAT 97
[2024-11-10] VITALS: BP 124/73; TEMP 97.9; O2SAT 95
[2024-11-10 04:40] VITALS: BP 126/75; TEMP 97.5; O2SAT 97
[2024-11-10 08:00] VITALS: BP 139/90; TEMP 97.5; O2SAT 96
[2024-11-10 09:01] VITALS: BP 112/68; TEMP 97.3; O2SAT 96
[2024-11-10 09:06] VITALS: BP 112/65
[2024-11-10 12:00] VITALS: BP 139/82; TEMP 97.5
== END 2024-11-10 13:05 | DRG 563 ==
LOC: EDBD 14:41 → M ED 14:41 → M ED INP 11-07 00:48 → M MS5PR 11-07 03:20
PROVIDERS: ADMIT Student in an Organized Health Care Education/Training Program; ATTEND Internal Medicine
DX: S42.212A Unspecified displaced fracture of surgical neck of left humerus, initial encounter for closed fracture (principal); W18.30XA Fall on same level, unspecified, initial encounter; Y92.008 Other place in unspecified non-institutional (private) residence as the place of occurrence of the external cause; Y99.8 Other external cause status; R13.10 Dysphagia, unspecified; N40.0 Benign prostatic hyperplasia without lower urinary tract symptoms; G40.909 Epilepsy, unspecified, not intractable, without status epilepticus; I73.9 Peripheral vascular disease, unspecified; M16.0 Bilateral primary osteoarthritis of hip; F10.20 Alcohol dependence, uncomplicated; I10 Essential (primary) hypertension; E78.5 Hyperlipidemia, unspecified; F39 Unspecified mood [affective] disorder; E55.9 Vitamin D deficiency, unspecified; D72.829 Elevated white blood cell count, unspecified; Z79.82 Long term (current) use of aspirin; Z79.899 Other long term (current) drug therapy

== ENCOUNTER → 2024-11-20 | Outpatient (CLI) | payer MEDICARE ==
[~2024-11-20] MED LIST changes: -IBUP-1022 PO; +IBUP600T42 PO; +LEXA1TAB2 PO
== END ==
LOC: M SOG 06:57
PROVIDERS: ATTEND Physician Assistant
DX: M25.512 Pain in left shoulder (principal)

== ENCOUNTER → 2024-12-04 | Outpatient (CLI) | payer MEDICARE ==
[~2024-12-04] MED LIST changes: +IBUP-1022 PO; -IBUP600T42 PO
== END ==
LOC: M SOG 06:57
PROVIDERS: ATTEND Orthopaedic Surgery
DX: S42.212A Unspecified displaced fracture of surgical neck of left humerus, initial encounter for closed fracture (principal)

== ENCOUNTER → 2025-03-21 | Outpatient (CLI) | payer MEDICARE, MEDICAID ==
[~2025-03-21] MED LIST changes: +HEPA100I26 IV; -IBUP-1022 PO; +IBUP600T42 PO
== END ==
LOC: M SOG 07:58
PROVIDERS: ATTEND Orthopaedic Surgery
DX: S42.212A Unspecified displaced fracture of surgical neck of left humerus, initial encounter for closed fracture (principal); Y93.9 Activity, unspecified; Y92.9 Unspecified place or not applicable